=== PATIENT | female | born 1985 | race Caucasian/White ===

== ENCOUNTER 2017-06-12 01:04 | Emergency (ER) | payer OTHER ==
[2017-06-12] MEDS: DIPHENHYDRAMINE 50 MG INJ IM (01:41)
[2017-06-12] MEDS: ACETAMINOPHEN 325 MG TAB PO (01:41)
== END 2017-06-12 02:29 | disposition home or self-care (01) ==
LOC: FTE 01:04
DX: J20.9 Acute bronchitis, unspecified (principal); I10 Essential (primary) hypertension
CPT/HCPCS: 96372; 99284-25

== ENCOUNTER 2017-08-14 09:37 | Emergency (ER) | payer SELFPAY, OTHER | END 2017-08-14 10:05 | disposition left against medical advice (07) | LOC: FTE 10:05 | DX: Z53.21 Procedure and treatment not carried out due to patient leaving prior to being seen by health care provider (principal) ==

== ENCOUNTER 2017-08-15 07:26 | Inpatient (IN) | payer OTHER ==
[2017-08-15] MEDS: HYDROCODONE/APAP (5/325) TAB PO (15:12)
[2017-08-15 15:23] LABS: ADD MAN DIFF? NO
[2017-08-15 15:28] LABS: BASOPHILS % 0.4 % (0.0-2.0); EOSINOPHILS # 0.1 10^3/ul (0.0-0.5); EOSINOPHILS % 1.5 % (0.0-7.0); HEMATOCRIT 28.2 % (37.0-47.0); HEMOGLOBIN 9.1 g/dl (12.0-16.0); LYMPHOCYTES % 22.1 % (15.0-51.0); MEAN CORPUSCULAR HEMOGLOBIN 34.3 pg (29.0-33.0); MEAN CORPUSCULAR HGB CONC 32.3 g/dl (32.0-37.0); MEAN CORPUSCULAR VOLUME 106.4 fl (82.0-101.0); MONOCYTE # 0.5 10^3/ul (0.3-0.9); MONOCYTES % 11.1 % (0.0-11.0); NEUTROPHILS % 64.5 % (39.0-77.0); PLATELET COUNT 158 10^3/UL (140-415); RED BLOOD COUNT 2.65 10^6/ul (4.20-5.40); RED CELL DISTRIBUTION WIDTH 16.9 % (11.5-14.5)
[2017-08-15 15:28] LABS: WHITE BLOOD COUNT 4.7 10^3/ul (4.8-10.8)
[2017-08-15 15:46] LABS: INR 1.12; PROTIME 14.6 Sec (11.9-14.9); PT RATIO 1.1
[2017-08-15 15:47] LABS: PARTIAL THROMBOPLASTIN TIME 32.7 Sec (25.0-35.0)
[2017-08-15 15:57] LABS: ANION GAP 26 (8-16); BLOOD UREA NITROGEN 54 mg/dl (7-20); CALCIUM 10.2 mg/dl (8.4-10.2); CARBON DIOXIDE 29 mmol/L (21-31); CHLORIDE 93 mmol/L (97-110); GLUCOSE 107 mg/dl (70-220); POTASSIUM 5.3 mmol/L (3.5-5.1); SODIUM 143 mmol/L (135-144)
[2017-08-15] MEDS: NA POLYST SULFON 15 GM/60 ML BTL PO (17:30)
[2017-08-15] MEDS: METHOCARBAMOL 750 MG TAB PO (21:40)
[2017-08-15] MEDS: morphine 2 MG INJ IV (22:26)
[2017-08-15] MEDS ORDERED: ACETAMINOPHEN 500 MG TAB PO (23:00)
[2017-08-15] MEDS: DIPHENHYDRAMINE 50 MG CAP PO (23:40)
[2017-08-15] MEDS: ZOLPIDEM 5 MG TAB PO (23:40)
[2017-08-16] MEDS: HYDROCODONE/APAP (10/325) TAB PO ×2 (03:17→09:37)
[2017-08-16 05:30] LABS: ADD MAN DIFF? NO
[2017-08-16 05:36] LABS: BASOPHILS % 0.6 % (0.0-2.0); EOSINOPHILS # 0.1 10^3/ul (0.0-0.5); EOSINOPHILS % 1.5 % (0.0-7.0); HEMATOCRIT 25.2 % (37.0-47.0); HEMOGLOBIN 8.2 g/dl (12.0-16.0); LYMPHOCYTES # 1.2 10^3/ul (0.8-2.9); LYMPHOCYTES % 23.2 % (15.0-51.0); MEAN CORPUSCULAR HGB CONC 32.5 g/dl (32.0-37.0); MEAN CORPUSCULAR VOLUME 104.6 fl (82.0-101.0); MEAN PLATELET VOLUME 10.6 fl (7.4-10.4); MONOCYTE # 0.4 10^3/ul (0.3-0.9); MONOCYTES % 8.1 % (0.0-11.0); NEUTROPHIL # 3.4 10^3/ul (1.6-7.5); NEUTROPHILS % 66.2 % (39.0-77.0); PLATELET COUNT 147 10^3/UL (140-415); RED BLOOD COUNT 2.41 10^6/ul (4.20-5.40); RED CELL DISTRIBUTION WIDTH 16.6 % (11.5-14.5)
[2017-08-16 05:36] LABS: WHITE BLOOD COUNT 5.2 10^3/ul (4.8-10.8)
[2017-08-16 06:29] LABS: ALANINE AMINOTRANSFERASE 16 IU/L (13-69); ALBUMIN 3.9 g/dl (3.3-4.9); ALBUMIN/GLOBULIN RATIO 1.69; ALKALINE PHOSPHATASE 547 IU/L (42-121); ANION GAP 28 (8-16); ASPARTATE AMINO TRANSFERASE 14 IU/L (15-46); BLOOD UREA NITROGEN 61 mg/dl (7-20); CARBON DIOXIDE 25 mmol/L (21-31); CHLORIDE 91 mmol/L (97-110); CREATININE 7.59 mg/dl (0.44-1.00); GLUCOSE 68 mg/dl (70-220); POTASSIUM 3.8 mmol/L (3.5-5.1); SODIUM 140 mmol/L (135-144); TOTAL PROTEIN 6.2 g/dl (6.1-8.1)
[2017-08-16] MEDS: SEVELAMER 800 MG TAB PO ×3 (07:46→17:15)
[2017-08-16] MEDS ORDERED: DIPHENHYDRAMINE 25 MG CAP PO (08:30)
[2017-08-16] MEDS: DIPHENHYDRAMINE 50 MG INJ IV ×3 (10:40→23:52)
[2017-08-16] MEDS: morphine 2 MG INJ IV ×2 (13:10→20:11)
[2017-08-16] MEDS: CINACALCET 30 MG TAB PO (21:01)
[2017-08-16] MEDS: ZOLPIDEM 5 MG TAB PO (22:40)
[2017-08-17] MEDS: morphine 2 MG INJ IV ×3 (05:06→21:08)
[2017-08-17 05:09] LABS: ADD MAN DIFF? NO
[2017-08-17 05:19] LABS: BASOPHILS % 0.6 % (0.0-2.0); EOSINOPHILS # 0.1 10^3/ul (0.0-0.5); EOSINOPHILS % 1.9 % (0.0-7.0); HEMOGLOBIN 7.9 g/dl (12.0-16.0); LYMPHOCYTES # 1.2 10^3/ul (0.8-2.9); LYMPHOCYTES % 26.5 % (15.0-51.0); MEAN CORPUSCULAR HEMOGLOBIN 34.5 pg (29.0-33.0); MEAN CORPUSCULAR HGB CONC 32.9 g/dl (32.0-37.0); MEAN CORPUSCULAR VOLUME 104.8 fl (82.0-101.0); MEAN PLATELET VOLUME 10.9 fl (7.4-10.4); MONOCYTE # 0.4 10^3/ul (0.3-0.9); MONOCYTES % 8.4 % (0.0-11.0); NEUTROPHIL # 2.9 10^3/ul (1.6-7.5); NEUTROPHILS % 62.4 % (39.0-77.0); PLATELET COUNT 141 10^3/UL (140-415); RED BLOOD COUNT 2.29 10^6/ul (4.20-5.40); RED CELL DISTRIBUTION WIDTH 16.5 % (11.5-14.5)
[2017-08-17 05:19] LABS: WHITE BLOOD COUNT 4.7 10^3/ul (4.8-10.8)
[2017-08-17 05:46] LABS: PHOSPHORUS 11.2 mg/dl (2.5-4.9)
[2017-08-17 05:49] LABS: ANION GAP 27 (8-16); BLOOD UREA NITROGEN 80 mg/dl (7-20); CALCIUM 9.3 mg/dl (8.4-10.2); CARBON DIOXIDE 26 mmol/L (21-31); CHLORIDE 95 mmol/L (97-110); CREATININE 10.04 mg/dl (0.44-1.00); GLUCOSE 65 mg/dl (70-220); POTASSIUM 4.5 mmol/L (3.5-5.1); SODIUM 143 mmol/L (135-144)
[2017-08-17] MEDS: DIPHENHYDRAMINE 50 MG INJ IV ×3 (06:05→19:22)
[2017-08-17 06:13] LABS: THYROID STIMULATING HORMONE 0.679 MIU/L (0.465-4.680)
[2017-08-17] MEDS: CINACALCET 30 MG TAB PO ×2 (07:35→11:57)
[2017-08-17] MEDS: SEVELAMER 800 MG TAB PO ×3 (07:35→17:02)
[2017-08-17 07:40] LABS: IONIZED CALCIUM 1.1 mmol/L (1.1-1.4)
[2017-08-17 13:45] LABS: HEPATITIS B SURFACE ANTIGEN NEGATIVE (NEGATIVE)
[2017-08-17 14:13] LABS: HEPATITIS B SURFACE ANTIBODY POSITIVE (NEGATIVE)
[2017-08-18] MEDS: DIPHENHYDRAMINE 50 MG INJ IV ×3 (04:07→19:41)
[2017-08-18] MEDS: morphine 2 MG INJ IV ×5 (05:16→20:43)
[2017-08-18 05:46] LABS: ADD MAN DIFF? NO
[2017-08-18 05:52] LABS: WHITE BLOOD COUNT 4.1 10^3/ul (4.8-10.8)
[2017-08-18 05:52] LABS: BASOPHILS % 0.5 % (0.0-2.0); EOSINOPHILS # 0.1 10^3/ul (0.0-0.5); HEMOGLOBIN 9.1 g/dl (12.0-16.0); LYMPHOCYTES % 25.3 % (15.0-51.0); MEAN CORPUSCULAR HEMOGLOBIN 34.7 pg (29.0-33.0); MEAN CORPUSCULAR HGB CONC 32.5 g/dl (32.0-37.0); MEAN CORPUSCULAR VOLUME 106.9 fl (82.0-101.0); MEAN PLATELET VOLUME 10.3 fl (7.4-10.4); MONOCYTE # 0.4 10^3/ul (0.3-0.9); MONOCYTES % 9.3 % (0.0-11.0); NEUTROPHIL # 2.6 10^3/ul (1.6-7.5); NEUTROPHILS % 62.7 % (39.0-77.0); PLATELET COUNT 166 10^3/UL (140-415); RED BLOOD COUNT 2.62 10^6/ul (4.20-5.40); RED CELL DISTRIBUTION WIDTH 16.4 % (11.5-14.5)
[2017-08-18 06:18] LABS: ANION GAP 24 (8-16); BLOOD UREA NITROGEN 41 mg/dl (7-20); CALCIUM 9.9 mg/dl (8.4-10.2); CARBON DIOXIDE 27 mmol/L (21-31); CHLORIDE 101 mmol/L (97-110); CREATININE 6.57 mg/dl (0.44-1.00); GLUCOSE 62 mg/dl (70-220); POTASSIUM 4.8 mmol/L (3.5-5.1); SODIUM 147 mmol/L (135-144)
[2017-08-18] MEDS: SEVELAMER 800 MG TAB PO ×4 (07:35→17:35)
[2017-08-18] MEDS: CINACALCET 30 MG TAB PO ×2 (08:00→08:29)
[2017-08-18 11:22] LABS: INR 1.15; PROTIME 14.9 Sec (11.9-14.9); PT RATIO 1.2
[2017-08-18 11:23] LABS: PARTIAL THROMBOPLASTIN TIME 35.6 Sec (25.0-35.0)
[2017-08-18] MEDS ORDERED: LIDOCAINE 2% (SDV) 5 ML INJ (14:46)
[2017-08-18] MEDS ORDERED: PROPOFOL 20 ML (14:46)
[2017-08-18] MEDS ORDERED: CEFAZOLIN 1 GM INJ (15:07)
[2017-08-18] MEDS ORDERED: SUCCINYLCHOLINE CHLORIDE 100 MG/5 ML SYG IV (15:10)
[2017-08-18] MEDS ORDERED: FAMOTIDINE 20 MG INJ (15:11)
[2017-08-18] MEDS ORDERED: DEXAMETHASONE 4 MG/ML 1 ML INJ ×2 (15:11→15:17)
[2017-08-18] MEDS ORDERED: ONDANSETRON 4 MG INJ (15:11)
[2017-08-18] MEDS ORDERED: EPHEDrine SULFATE 50 MG/5 ML SYG (15:19)
[2017-08-18] MEDS ORDERED: DIPHENHYDRAMINE 50 MG INJ IV (17:00)
[2017-08-18] MEDS ORDERED: MEPERIDINE 25 MG INJ IV (17:00)
[2017-08-18] MEDS ORDERED: ONDANSETRON 4 MG INJ IV (17:00)
[2017-08-18] MEDS ORDERED: PROCHLORPERAZINE 10 MG INJ IV (17:00)
[2017-08-18] MEDS: HYDROmorphONE (0.2 MG/ML) 10ML SYG IV ×3 (17:22→17:45)
[2017-08-18] MEDS: FENTAnyl 50 MCG/ML VIAL IV (17:50)
[2017-08-18] MEDS: CALCITRIOL 0.25 MCG CAP PO (20:43)
[2017-08-18] MEDS: CALCIUM CARBONATE 1.25 GM TAB PO (20:43)
[2017-08-19] MEDS: morphine 2 MG INJ IV ×6 (00:23→20:23)
[2017-08-19] MEDS: DIPHENHYDRAMINE 50 MG INJ IV ×4 (01:44→21:05)
[2017-08-19 05:12] LABS: ADD MAN DIFF? NO
[2017-08-19 05:22] LABS: ABNORMAL IP MESSAGE 1; BASOPHILS % 0.1 % (0.0-2.0); HEMATOCRIT 27.9 % (37.0-47.0); LYMPHOCYTES # 0.5 10^3/ul (0.8-2.9); LYMPHOCYTES % 6.2 % (15.0-51.0); MEAN CORPUSCULAR HEMOGLOBIN 34.5 pg (29.0-33.0); MEAN CORPUSCULAR HGB CONC 32.3 g/dl (32.0-37.0); MEAN CORPUSCULAR VOLUME 106.9 fl (82.0-101.0); MEAN PLATELET VOLUME 10.4 fl (7.4-10.4); MONOCYTE # 0.3 10^3/ul (0.3-0.9); MONOCYTES % 4.5 % (0.0-11.0); NEUTROPHIL # 6.5 10^3/ul (1.6-7.5); NEUTROPHILS % 88.9 % (39.0-77.0); PLATELET COUNT 177 10^3/UL (140-415); RED BLOOD COUNT 2.61 10^6/ul (4.20-5.40); RED CELL DISTRIBUTION WIDTH 16.4 % (11.5-14.5)
[2017-08-19 05:22] LABS: WHITE BLOOD COUNT 7.3 10^3/ul (4.8-10.8)
[2017-08-19 05:52] LABS: ANION GAP 28 (8-16); BLOOD UREA NITROGEN 55 mg/dl (7-20); CARBON DIOXIDE 21 mmol/L (21-31); CHLORIDE 103 mmol/L (97-110); CREATININE 8.62 mg/dl (0.44-1.00); GLUCOSE 147 mg/dl (70-220)
[2017-08-19 06:13] LABS: POSITIVE DIFF @See below
[2017-08-19 07:03] LABS: SODIUM 145 mmol/L (135-144)
[2017-08-19] MEDS: SEVELAMER 800 MG TAB PO ×3 (07:35→17:33)
[2017-08-19] MEDS: CALCIUM CARBONATE 1.25 GM TAB PO ×4 (09:00→20:26)
[2017-08-19] MEDS: INFLUENZA VIRUS VACCINE 0.5 ML (DISPENSING) IM* (09:00)
[2017-08-19] MEDS: CALCITRIOL 0.25 MCG CAP PO ×3 (09:00→20:22)
[2017-08-19] MEDS ORDERED: CA CHLORIDE 10% 10 ML SYRINGE IV (11:12)
[2017-08-19] MEDS ORDERED: CALCITRIOL 1 MCG INJ IV (11:30)
[2017-08-19] MEDS: CALCIUM CHLORIDE 10% 1 GM in DEXTROSE 5% 100 ML IV (12:05)
[2017-08-19] MEDS ORDERED: CALCIUM CARBONATE 500 MG CHEW TAB PO (13:00)
[2017-08-19 16:28] LABS: ALBUMIN 3.8 g/dl (3.3-4.9); ANION GAP 28 (8-16); BLOOD UREA NITROGEN 56 mg/dl (7-20); CARBON DIOXIDE 20 mmol/L (21-31); CHLORIDE 102 mmol/L (97-110); CREATININE 8.67 mg/dl (0.44-1.00); GLUCOSE 146 mg/dl (70-220); SODIUM 143 mmol/L (135-144)
[2017-08-19 16:50] LABS: CALCIUM 5.8 mg/dl (8.4-10.2); POTASSIUM 7.1 mmol/L (3.5-5.1)
[2017-08-19 18:01] LABS: ALBUMIN 4.8 g/dl (3.3-4.9); ANION GAP 24 (8-16); BLOOD UREA NITROGEN 21 mg/dl (7-20); CALCIUM 6.7 mg/dl (8.4-10.2); CARBON DIOXIDE 27 mmol/L (21-31); CHLORIDE 94 mmol/L (97-110); CREATININE 4.16 mg/dl (0.44-1.00); GLUCOSE 100 mg/dl (70-220); PHOSPHORUS 4.3 mg/dl (2.5-4.9); POTASSIUM 3.4 mmol/L (3.5-5.1); SODIUM 142 mmol/L (135-144)
[2017-08-20] MEDS: morphine 2 MG INJ IV ×5 (04:00→20:05)
[2017-08-20] MEDS ORDERED: NORepinephrine 8MG/250 ML (PMX 250 ML (04:07)
[2017-08-20] MEDS: NORepinephrine 8MG/250 ML (PMX 250 ML IV (04:19)
[2017-08-20] MEDS: DIPHENHYDRAMINE 50 MG INJ IV ×3 (04:20→20:05)
[2017-08-20] MEDS: HYDROCODONE/APAP (10/325) TAB PO (06:37)
[2017-08-20 07:42] LABS: ALBUMIN 4.6 g/dl (3.3-4.9); ANION GAP 30 (8-16); BLOOD UREA NITROGEN 28 mg/dl (7-20); CARBON DIOXIDE 22 mmol/L (21-31); CHLORIDE 96 mmol/L (97-110); CREATININE 6.05 mg/dl (0.44-1.00); GLUCOSE 114 mg/dl (70-220); POTASSIUM 4.7 mmol/L (3.5-5.1); SODIUM 143 mmol/L (135-144)
[2017-08-20] MEDS: SEVELAMER 800 MG TAB PO ×4 (08:29→12:45)
[2017-08-20] MEDS: CALCIUM CARBONATE 1.25 GM TAB PO ×4 (08:29→20:04)
[2017-08-20] MEDS: CALCITRIOL 0.25 MCG CAP PO ×3 (08:31→20:04)
[2017-08-20] MEDS: INFLUENZA VIRUS VACCINE 0.5 ML (DISPENSING) IM* (09:00)
[2017-08-20] MEDS: CA CHLORIDE 10% 10 ML SYRINGE IV ×2 (09:19→12:33)
[2017-08-20] MEDS: ALTEPLASE (CATHFLO) 2 MG INJ CATHETER (12:19)
[2017-08-20] MEDS: MAGNESIUM SULFATE 2 GM/50 ML 50 ML IVPB (12:28)
[2017-08-20 12:44] LABS: ANION GAP 23 (8-16); BLOOD UREA NITROGEN 31 mg/dl (7-20); CARBON DIOXIDE 27 mmol/L (21-31); CHLORIDE 95 mmol/L (97-110); CREATININE 6.59 mg/dl (0.44-1.00); GLUCOSE 84 mg/dl (70-220); MAGNESIUM 2.2 mg/dl (1.7-2.5); PHOSPHORUS 4.9 mg/dl (2.5-4.9); SODIUM 140 mmol/L (135-144)
[2017-08-20 12:46] LABS: POTASSIUM 5.3 mmol/L (3.5-5.1)
[2017-08-20] MEDS: SOD CHLORIDE 0.9% 500 ML IV ×2 (18:00)
[2017-08-20] MEDS ORDERED: SOD CHLORIDE 0.9% 500 ML IV (18:00)
[2017-08-20 18:51] LABS: ANION GAP 24 (8-16); BLOOD UREA NITROGEN 34 mg/dl (7-20); CARBON DIOXIDE 24 mmol/L (21-31); CHLORIDE 97 mmol/L (97-110); CREATININE 7.06 mg/dl (0.44-1.00); GLUCOSE 93 mg/dl (70-220); MAGNESIUM 2.7 mg/dl (1.7-2.5); PHOSPHORUS 4.6 mg/dl (2.5-4.9); POTASSIUM 5.6 mmol/L (3.5-5.1); SODIUM 139 mmol/L (135-144)
[2017-08-20 18:54] LABS: CALCIUM 5.2 mg/dl (8.4-10.2)
[2017-08-21] MEDS: CALCIUM CARBONATE 1.25 GM TAB PO ×6 (00:42→20:55)
[2017-08-21] MEDS: morphine 2 MG INJ IV ×2 (00:42→05:49)
[2017-08-21 01:09] LABS: ALBUMIN 3.9 g/dl (3.3-4.9); ANION GAP 23 (8-16); BLOOD UREA NITROGEN 36 mg/dl (7-20); CARBON DIOXIDE 26 mmol/L (21-31); CHLORIDE 96 mmol/L (97-110); CREATININE 8.04 mg/dl (0.44-1.00); GLUCOSE 85 mg/dl (70-220); MAGNESIUM 2.6 mg/dl (1.7-2.5); PHOSPHORUS 4.8 mg/dl (2.5-4.9); POTASSIUM 5.9 mmol/L (3.5-5.1); SODIUM 139 mmol/L (135-144)
[2017-08-21 01:14] LABS: CALCIUM 4.7 mg/dl (8.4-10.2)
[2017-08-21] MEDS: DIPHENHYDRAMINE 50 MG INJ IV ×4 (03:16→20:55)
[2017-08-21 07:16] LABS: ALBUMIN 3.8 g/dl (3.3-4.9); ANION GAP 24 (8-16); BLOOD UREA NITROGEN 39 mg/dl (7-20); CARBON DIOXIDE 24 mmol/L (21-31); CHLORIDE 98 mmol/L (97-110); CREATININE 8.39 mg/dl (0.44-1.00); GLUCOSE 67 mg/dl (70-220); MAGNESIUM 2.6 mg/dl (1.7-2.5); PHOSPHORUS 4.7 mg/dl (2.5-4.9); POTASSIUM 5.6 mmol/L (3.5-5.1); SODIUM 140 mmol/L (135-144)
[2017-08-21 07:18] LABS: CALCIUM 4.6 mg/dl (8.4-10.2)
[2017-08-21] MEDS: CA CHLORIDE 10% 10 ML SYRINGE IV ×3 (07:44→21:11)
[2017-08-21] MEDS: SEVELAMER 800 MG TAB PO ×3 (07:46→16:17)
[2017-08-21] MEDS: CALCITRIOL 0.25 MCG CAP PO ×4 (08:02→21:57)
[2017-08-21 13:18] LABS: ALBUMIN 3.7 g/dl (3.3-4.9); ANION GAP 22 (8-16); BLOOD UREA NITROGEN 41 mg/dl (7-20); CALCIUM 6.2 mg/dl (8.4-10.2); CARBON DIOXIDE 21 mmol/L (21-31); CHLORIDE 100 mmol/L (97-110); CREATININE 9.21 mg/dl (0.44-1.00); GLUCOSE 75 mg/dl (70-220); MAGNESIUM 2.7 mg/dl (1.7-2.5); PHOSPHORUS 4.4 mg/dl (2.5-4.9); POTASSIUM 5.3 mmol/L (3.5-5.1); SODIUM 138 mmol/L (135-144)
[2017-08-21] MEDS ORDERED: SOD CHLORIDE 0.9% 500 ML IV (14:00)
[2017-08-21] MEDS: ERGOCALCIFEROL (8000 UNITS/ML PO SYG) PO ×2 (14:10→14:25)
[2017-08-21] MEDS: CALCITRIOL 1 MCG INJ IV (14:23)
[2017-08-21] MEDS: LACTATED RINGER'S 500 ML IV (14:23)
[2017-08-21] MEDS: ONDANSETRON 4 MG INJ IV (14:39)
[2017-08-21] MEDS ORDERED: SOD CHLORIDE 0.9% 1,000 ML IV (15:00)
[2017-08-21] MEDS: LACTATED RINGER'S 1,000 ML IV (16:03)
[2017-08-21] MEDS: ERGOCALCIFEROL 50,000 UNIT CAP PO (16:17)
[2017-08-21] MEDS: MIDODRINE 5 MG TAB PO ×2 (16:18→22:35)
[2017-08-21 20:06] LABS: ALBUMIN 3.8 g/dl (3.3-4.9); ANION GAP 23 (8-16); BLOOD UREA NITROGEN 42 mg/dl (7-20); CARBON DIOXIDE 22 mmol/L (21-31); CHLORIDE 99 mmol/L (97-110); CREATININE 9.57 mg/dl (0.44-1.00); GLUCOSE 74 mg/dl (70-220); MAGNESIUM 2.6 mg/dl (1.7-2.5); PHOSPHORUS 4.5 mg/dl (2.5-4.9); SODIUM 138 mmol/L (135-144)
[2017-08-21 20:10] LABS: CALCIUM 4.8 mg/dl (8.4-10.2)
[2017-08-21 20:15] LABS: POTASSIUM 6.2 mmol/L (3.5-5.1)
[2017-08-21] MEDS: ALBUMIN HUMAN 5% 250 ML IV (20:38)
[2017-08-21] MEDS: NA BICARBONATE 8.4% 50 ML SYG IV (21:11)
[2017-08-21] MEDS: CALCIUM GLUCONATE 10% 2 GM in DEXTROSE 5% 100 ML IVPB (22:29)
[2017-08-21] MEDS: NA POLYST SULFON 15 GM/60 ML BTL PO (22:52)
[2017-08-21 23:01] LABS: POTASSIUM 5.4 mmol/L (3.5-5.1)
[2017-08-22] MEDS: CALCIUM CARBONATE 1.25 GM TAB PO ×6 (02:14→22:13)
[2017-08-22] MEDS: ALBUMIN HUMAN 5% 250 ML IV (02:38)
[2017-08-22] MEDS: LACTATED RINGER'S 1,000 ML IV ×2 (02:39→17:04)
[2017-08-22] MEDS: DIPHENHYDRAMINE 50 MG INJ IV ×4 (02:56→20:13)
[2017-08-22 05:41] LABS: ADD MAN DIFF? NO
[2017-08-22 05:50] LABS: BASOPHILS % 0.3 % (0.0-2.0); EOSINOPHILS # 0.1 10^3/ul (0.0-0.5); EOSINOPHILS % 2.7 % (0.0-7.0); HEMATOCRIT 21.3 % (37.0-47.0); LYMPHOCYTES # 0.9 10^3/ul (0.8-2.9); LYMPHOCYTES % 23.3 % (15.0-51.0); MEAN CORPUSCULAR HEMOGLOBIN 34.8 pg (29.0-33.0); MEAN CORPUSCULAR HGB CONC 32.9 g/dl (32.0-37.0); MEAN PLATELET VOLUME 10.3 fl (7.4-10.4); MONOCYTE # 0.3 10^3/ul (0.3-0.9); MONOCYTES % 9.1 % (0.0-11.0); NEUTROPHIL # 2.4 10^3/ul (1.6-7.5); NEUTROPHILS % 64.3 % (39.0-77.0); PLATELET COUNT 157 10^3/UL (140-415); RED BLOOD COUNT 2.01 10^6/ul (4.20-5.40); RED CELL DISTRIBUTION WIDTH 16.7 % (11.5-14.5)
[2017-08-22 05:50] LABS: WHITE BLOOD COUNT 3.7 10^3/ul (4.8-10.8)
[2017-08-22 06:06] LABS: ALANINE AMINOTRANSFERASE 18 IU/L (13-69); ALBUMIN/GLOBULIN RATIO 1.66; ALKALINE PHOSPHATASE 855 IU/L (42-121); ANION GAP 25 (8-16); ASPARTATE AMINO TRANSFERASE 22 IU/L (15-46); BLOOD UREA NITROGEN 45 mg/dl (7-20); CARBON DIOXIDE 25 mmol/L (21-31); CHLORIDE 98 mmol/L (97-110); CREATININE 9.99 mg/dl (0.44-1.00); GLUCOSE 86 mg/dl (70-220); POTASSIUM 4.9 mmol/L (3.5-5.1); SODIUM 143 mmol/L (135-144); TOTAL PROTEIN 6.4 g/dl (6.1-8.1)
[2017-08-22 06:10] LABS: CALCIUM 4.5 mg/dl (8.4-10.2)
[2017-08-22] MEDS: CA CHLORIDE 10% 10 ML SYRINGE IV ×3 (06:27→14:49)
[2017-08-22] MEDS ORDERED: ERGOCALCIFEROL 50,000 UNIT CAP PO (07:05)
[2017-08-22] MEDS: ERGOCALCIFEROL 50,000 UNIT CAP PO (07:52)
[2017-08-22] MEDS: HYDROCODONE/APAP (10/325) TAB PO (07:56)
[2017-08-22] MEDS: SEVELAMER 800 MG TAB PO ×3 (07:56→18:02)
[2017-08-22] MEDS: CALCITRIOL 0.25 MCG CAP PO ×4 (09:02→22:13)
[2017-08-22] MEDS: MIDODRINE 5 MG TAB PO ×2 (09:38→17:04)
[2017-08-22] MEDS: CALCITRIOL 1 MCG INJ IV (10:19)
[2017-08-22 11:32] LABS: IONIZED CALCIUM < 0.6 mmol/L (1.1-1.4)
[2017-08-22 12:52] LABS: IRON 58 ug/dl (35-150)
[2017-08-22 13:02] LABS: % IRON SATURATION 33 % SAT (22-52); TOTAL IRON BINDING CAPACITY 175 ug/dl (241-421)
[2017-08-22 17:48] LABS: AHG CROSSMATCH 1 1
[2017-08-22] MEDS: SOD CHLORIDE 0.9% 250 ML IV* (17:56)
[2017-08-22] MEDS: EPOETIN 3000 UNITS/1 ML INJ (ESRD) SC (17:58)
[2017-08-22 19:38] LABS: PTH CALCIUM 5.3 mg/dL (8.6-10.2)
[2017-08-22] MEDS: DEXTROSE 5% IV (20:13)
[2017-08-22] MEDS: CALCIUM GLUCONATE IV (20:13)
[2017-08-22] MEDS ORDERED: EPOETIN 10000 UNITS/1 ML INJ (ESRD) SC (22:00)
[2017-08-22] MEDS ORDERED: CA CHLORIDE 10% 10 ML SYRINGE IV (22:00)
[2017-08-22] MEDS: EPOETIN 10000 UNITS/1 ML INJ (ESRD) SC (23:21)
[2017-08-23] MEDS: CALCIUM CARBONATE 1.25 GM TAB PO ×6 (01:02→21:36)
[2017-08-23] MEDS: DIPHENHYDRAMINE 50 MG INJ IV ×3 (03:40→16:52)
[2017-08-23] MEDS: LACTATED RINGER'S 1,000 ML IV (06:29)
[2017-08-23 06:33] LABS: MAGNESIUM 2.3 mg/dl (1.7-2.5)
[2017-08-23 06:33] LABS: PHOSPHORUS 3.4 mg/dl (2.5-4.9)
[2017-08-23 06:40] LABS: ALANINE AMINOTRANSFERASE 19 IU/L (13-69); ALBUMIN 3.8 g/dl (3.3-4.9); ALBUMIN/GLOBULIN RATIO 1.35; ALKALINE PHOSPHATASE 1072 IU/L (42-121); ANION GAP 20 (8-16); ASPARTATE AMINO TRANSFERASE 24 IU/L (15-46); BILIRUBIN,INDIRECT 0.2 mg/dl (0-1.1); BILIRUBIN,TOTAL 0.2 mg/dl (0.2-1.3); BLOOD UREA NITROGEN 16 mg/dl (7-20); CALCIUM 6.1 mg/dl (8.4-10.2); CARBON DIOXIDE 27 mmol/L (21-31); CHLORIDE 100 mmol/L (97-110); CREATININE 5.18 mg/dl (0.44-1.00); GLUCOSE 70 mg/dl (70-220); POTASSIUM 4.6 mmol/L (3.5-5.1); SODIUM 142 mmol/L (135-144); TOTAL PROTEIN 6.6 g/dl (6.1-8.1)
[2017-08-23] MEDS: ERGOCALCIFEROL 50,000 UNIT CAP PO (08:01)
[2017-08-23] MEDS: SEVELAMER 800 MG TAB PO ×2 (08:01→12:01)
[2017-08-23] MEDS: morphine 2 MG INJ IV ×4 (08:02→21:41)
[2017-08-23 08:21] LABS: PTH INTACT 10 pg/mL (14-64)
[2017-08-23] MEDS: MIDODRINE 5 MG TAB PO (09:53)
[2017-08-23] MEDS: CALCITRIOL 0.25 MCG CAP PO ×4 (09:53→21:36)
[2017-08-23] MEDS: ONDANSETRON 4 MG INJ IV (13:15)
[2017-08-23 17:00] LABS: ALANINE AMINOTRANSFERASE 17 IU/L (13-69); ALBUMIN 3.6 g/dl (3.3-4.9); ALBUMIN/GLOBULIN RATIO 1.38; ALKALINE PHOSPHATASE 1116 IU/L (42-121); ANION GAP 21 (8-16); ASPARTATE AMINO TRANSFERASE 20 IU/L (15-46); BILIRUBIN,INDIRECT 0.2 mg/dl (0-1.1); BILIRUBIN,TOTAL 0.2 mg/dl (0.2-1.3); BLOOD UREA NITROGEN 19 mg/dl (7-20); CARBON DIOXIDE 28 mmol/L (21-31); CHLORIDE 98 mmol/L (97-110); CREATININE 6.14 mg/dl (0.44-1.00); GLUCOSE 88 mg/dl (70-220); SODIUM 142 mmol/L (135-144); TOTAL PROTEIN 6.2 g/dl (6.1-8.1)
[2017-08-23 17:04] LABS: CALCIUM 5.9 mg/dl (8.4-10.2)
[2017-08-23 17:05] LABS: POTASSIUM 5.1 mmol/L (3.5-5.1)
[2017-08-23] MEDS: CALCITRIOL 1 MCG INJ IV (20:00)
[2017-08-23] MEDS: DEXTROSE 5% IV (21:40)
[2017-08-23] MEDS: CALCIUM GLUCONATE IV (21:40)
[2017-08-24] MEDS: CALCIUM CARBONATE 1.25 GM TAB PO ×6 (00:48→21:16)
[2017-08-24] MEDS: DIPHENHYDRAMINE 50 MG INJ IV ×4 (02:16→18:13)
[2017-08-24] MEDS: morphine 2 MG INJ IV ×4 (02:17→18:14)
[2017-08-24 06:01] LABS: ADD MAN DIFF? NO
[2017-08-24 06:12] LABS: HEMOGLOBIN 8.5 g/dl (12.0-16.0)
[2017-08-24 06:12] LABS: HEMATOCRIT 25.8 % (37.0-47.0)
[2017-08-24 06:14] LABS: BASOPHILS % 0.6 % (0.0-2.0); EOSINOPHILS # 0.2 10^3/ul (0.0-0.5); EOSINOPHILS % 2.9 % (0.0-7.0); HEMATOCRIT 26.8 % (37.0-47.0); HEMOGLOBIN 8.6 g/dl (12.0-16.0); LYMPHOCYTES # 1.1 10^3/ul (0.8-2.9); LYMPHOCYTES % 21.1 % (15.0-51.0); MEAN CORPUSCULAR HEMOGLOBIN 33.9 pg (29.0-33.0); MEAN CORPUSCULAR HGB CONC 32.1 g/dl (32.0-37.0); MEAN CORPUSCULAR VOLUME 105.5 fl (82.0-101.0); MEAN PLATELET VOLUME 10.3 fl (7.4-10.4); MONOCYTE # 0.6 10^3/ul (0.3-0.9); MONOCYTES % 10.7 % (0.0-11.0); NEUTROPHIL # 3.3 10^3/ul (1.6-7.5); NEUTROPHILS % 64.3 % (39.0-77.0); PLATELET COUNT 182 10^3/UL (140-415); RED BLOOD COUNT 2.54 10^6/ul (4.20-5.40); RED CELL DISTRIBUTION WIDTH 17.4 % (11.5-14.5)
[2017-08-24 06:14] LABS: WHITE BLOOD COUNT 5.1 10^3/ul (4.8-10.8)
[2017-08-24 06:46] LABS: ANION GAP 24 (8-16); BLOOD UREA NITROGEN 26 mg/dl (7-20); CALCIUM 6.1 mg/dl (8.4-10.2); CARBON DIOXIDE 24 mmol/L (21-31); CHLORIDE 97 mmol/L (97-110); GLUCOSE 75 mg/dl (70-220); POTASSIUM 5.9 mmol/L (3.5-5.1); SODIUM 139 mmol/L (135-144)
[2017-08-24 07:01] LABS: IONIZED CALCIUM 0.8 mmol/L (1.1-1.4)
[2017-08-24] MEDS: CALCITRIOL 0.25 MCG CAP PO ×3 (08:01→18:22)
[2017-08-24] MEDS: CALCIUM GLUCONATE IV (13:48)
[2017-08-24] MEDS: DEXTROSE 5% IV (13:48)
[2017-08-24] MEDS: ERGOCALCIFEROL 50,000 UNIT CAP PO (15:47)
[2017-08-24] MEDS ORDERED: EPOETIN 10000 UNITS/1 ML INJ (ESRD) SC (17:00)
[2017-08-24] MEDS: EPOETIN 3000 UNITS/1 ML INJ (ESRD) SC (18:22)
[2017-08-24 19:21] LABS: CALCIUM 8.2 mg/dl (8.4-10.2)
[2017-08-25] MEDS: CALCIUM CARBONATE 1.25 GM TAB PO ×6 (01:57→21:02)
[2017-08-25] MEDS: DIPHENHYDRAMINE 50 MG INJ IV ×4 (01:57→22:17)
[2017-08-25 05:38] LABS: ADD MAN DIFF? NO
[2017-08-25 05:44] LABS: BASOPHILS % 0.5 % (0.0-2.0); EOSINOPHILS # 0.1 10^3/ul (0.0-0.5); HEMATOCRIT 25.7 % (37.0-47.0); HEMOGLOBIN 8.5 g/dl (12.0-16.0); LYMPHOCYTES # 0.8 10^3/ul (0.8-2.9); LYMPHOCYTES % 22.3 % (15.0-51.0); MEAN CORPUSCULAR HEMOGLOBIN 33.6 pg (29.0-33.0); MEAN CORPUSCULAR HGB CONC 33.1 g/dl (32.0-37.0); MEAN CORPUSCULAR VOLUME 101.6 fl (82.0-101.0); MEAN PLATELET VOLUME 10.2 fl (7.4-10.4); MONOCYTE # 0.4 10^3/ul (0.3-0.9); MONOCYTES % 10.9 % (0.0-11.0); NEUTROPHIL # 2.3 10^3/ul (1.6-7.5); NEUTROPHILS % 62.8 % (39.0-77.0); PLATELET COUNT 183 10^3/UL (140-415); RED BLOOD COUNT 2.53 10^6/ul (4.20-5.40); RED CELL DISTRIBUTION WIDTH 16.8 % (11.5-14.5)
[2017-08-25 05:44] LABS: WHITE BLOOD COUNT 3.7 10^3/ul (4.8-10.8)
[2017-08-25 06:19] LABS: ALANINE AMINOTRANSFERASE 16 IU/L (13-69); ALBUMIN 3.9 g/dl (3.3-4.9); ALKALINE PHOSPHATASE 1281 IU/L (42-121); ANION GAP 20 (8-16); ASPARTATE AMINO TRANSFERASE 22 IU/L (15-46); BILIRUBIN,INDIRECT 0.1 mg/dl (0-1.1); BILIRUBIN,TOTAL 0.1 mg/dl (0.2-1.3); BLOOD UREA NITROGEN 14 mg/dl (7-20); CALCIUM 6.2 mg/dl (8.4-10.2); CARBON DIOXIDE 28 mmol/L (21-31); CHLORIDE 96 mmol/L (97-110); CREATININE 4.54 mg/dl (0.44-1.00); GLUCOSE 66 mg/dl (70-220); POTASSIUM 4.5 mmol/L (3.5-5.1); SODIUM 139 mmol/L (135-144); TOTAL PROTEIN 6.5 g/dl (6.1-8.1)
[2017-08-25] MEDS: CALCITRIOL 0.25 MCG CAP PO ×3 (08:25→19:25)
[2017-08-25] MEDS: SEVELAMER 400 MG TAB PO ×3 (08:26→16:40)
[2017-08-25 14:07] LABS: CALCIUM 5.5 mg/dl (8.4-10.2)
[2017-08-25] MEDS: CALCIUM GLUCONATE IV (15:50)
[2017-08-25] MEDS: DEXTROSE 5% IV (15:50)
[2017-08-25 19:06] LABS: CALCIUM 9.5 mg/dl (8.4-10.2)
[2017-08-25] MEDS: morphine 2 MG INJ IV (21:39)
[2017-08-26] MEDS: CALCIUM CARBONATE 1.25 GM TAB PO ×6 (00:44→20:27)
[2017-08-26] MEDS: DIPHENHYDRAMINE 50 MG INJ IV ×3 (04:40→18:38)
[2017-08-26 05:15] LABS: ADD MAN DIFF? NO
[2017-08-26 05:20] LABS: BASOPHILS % 0.7 % (0.0-2.0); EOSINOPHILS # 0.1 10^3/ul (0.0-0.5); EOSINOPHILS % 2.2 % (0.0-7.0); HEMATOCRIT 29.2 % (37.0-47.0); HEMOGLOBIN 9.3 g/dl (12.0-16.0); LYMPHOCYTES # 1.1 10^3/ul (0.8-2.9); LYMPHOCYTES % 24.6 % (15.0-51.0); MEAN CORPUSCULAR HEMOGLOBIN 33.3 pg (29.0-33.0); MEAN CORPUSCULAR HGB CONC 31.8 g/dl (32.0-37.0); MEAN CORPUSCULAR VOLUME 104.7 fl (82.0-101.0); MEAN PLATELET VOLUME 10.3 fl (7.4-10.4); MONOCYTE # 0.6 10^3/ul (0.3-0.9); MONOCYTES % 12.8 % (0.0-11.0); NEUTROPHIL # 2.7 10^3/ul (1.6-7.5); NEUTROPHILS % 59.3 % (39.0-77.0); NUCLEATED RED BLOOD CELLS% 0.7 /100WBC (0.0-0.0); PLATELET COUNT 217 10^3/UL (140-415); RED BLOOD COUNT 2.79 10^6/ul (4.20-5.40); RED CELL DISTRIBUTION WIDTH 16.1 % (11.5-14.5)
[2017-08-26 05:20] LABS: WHITE BLOOD COUNT 4.5 10^3/ul (4.8-10.8)
[2017-08-26 05:34] LABS: ALANINE AMINOTRANSFERASE 21 IU/L (13-69); ALBUMIN 4.1 g/dl (3.3-4.9); ALBUMIN/GLOBULIN RATIO 1.41; ANION GAP 19 (8-16); ASPARTATE AMINO TRANSFERASE 19 IU/L (15-46); BILIRUBIN,INDIRECT 0.1 mg/dl (0-1.1); BILIRUBIN,TOTAL 0.1 mg/dl (0.2-1.3); BLOOD UREA NITROGEN 16 mg/dl (7-20); CALCIUM 7.1 mg/dl (8.4-10.2); CARBON DIOXIDE 28 mmol/L (21-31); CHLORIDE 100 mmol/L (97-110); CREATININE 4.04 mg/dl (0.44-1.00); GLUCOSE 85 mg/dl (70-220); POTASSIUM 4.3 mmol/L (3.5-5.1); SODIUM 143 mmol/L (135-144)
[2017-08-26 05:42] LABS: ALKALINE PHOSPHATASE 1407 IU/L (42-121)
[2017-08-26 05:47] LABS: PHOSPHORUS 3.2 mg/dl (2.5-4.9)
[2017-08-26] MEDS: SEVELAMER 400 MG TAB PO ×3 (07:55→18:37)
[2017-08-26] MEDS: morphine 2 MG INJ IV ×4 (07:55→18:37)
[2017-08-26] MEDS: CYANOCOBALAMIN 1000 MCG INJ IM (07:56)
[2017-08-26] MEDS: FOLIC ACID 1 MG TAB PO (10:01)
[2017-08-26] MEDS: CALCITRIOL 0.25 MCG CAP PO ×3 (10:01→20:27)
[2017-08-26 14:50] LABS: CALCIUM 7.1 mg/dl (8.4-10.2)
[2017-08-26] MEDS: DEXTROSE 5% IV (16:04)
[2017-08-26] MEDS: CALCIUM GLUCONATE IV (16:04)
[2017-08-26] MEDS: EPOETIN 3000 UNITS/1 ML INJ (ESRD) SC (17:00)
[2017-08-26] MEDS: LIDOCAINE 1% (MPF) 5 ML VIAL SC (18:00)
[2017-08-26] MEDS: SOD CHLORIDE 0.9% 100 ML (18:15)
[2017-08-27] MEDS: CALCIUM CARBONATE 1.25 GM TAB PO ×6 (00:58→20:39)
[2017-08-27] MEDS: DIPHENHYDRAMINE 50 MG INJ IV ×4 (01:03→18:57)
[2017-08-27] MEDS: DEXTROSE 5% IV (03:27)
[2017-08-27] MEDS: CALCIUM GLUCONATE IV (03:27)
[2017-08-27 05:08] LABS: ADD MAN DIFF? NO
[2017-08-27 05:11] LABS: WHITE BLOOD COUNT 3.9 10^3/ul (4.8-10.8)
[2017-08-27 05:11] LABS: BASOPHILS % 0.5 % (0.0-2.0); EOSINOPHILS # 0.2 10^3/ul (0.0-0.5); EOSINOPHILS % 3.8 % (0.0-7.0); HEMOGLOBIN 8.3 g/dl (12.0-16.0); LYMPHOCYTES # 1.2 10^3/ul (0.8-2.9); LYMPHOCYTES % 30.9 % (15.0-51.0); MEAN CORPUSCULAR HEMOGLOBIN 33.6 pg (29.0-33.0); MEAN CORPUSCULAR HGB CONC 31.9 g/dl (32.0-37.0); MEAN CORPUSCULAR VOLUME 105.3 fl (82.0-101.0); MEAN PLATELET VOLUME 9.8 fl (7.4-10.4); MONOCYTE # 0.4 10^3/ul (0.3-0.9); MONOCYTES % 10.5 % (0.0-11.0); NEUTROPHIL # 2.1 10^3/ul (1.6-7.5); NEUTROPHILS % 53.5 % (39.0-77.0); PLATELET COUNT 182 10^3/UL (140-415); RED BLOOD COUNT 2.47 10^6/ul (4.20-5.40); RED CELL DISTRIBUTION WIDTH 16.4 % (11.5-14.5)
[2017-08-27 05:32] LABS: ALANINE AMINOTRANSFERASE 16 IU/L (13-69); ALBUMIN 3.7 g/dl (3.3-4.9); ALBUMIN/GLOBULIN RATIO 1.42; ALKALINE PHOSPHATASE 1479 IU/L (42-121); ANION GAP 19 (8-16); ASPARTATE AMINO TRANSFERASE 16 IU/L (15-46); BILIRUBIN,INDIRECT 0.1 mg/dl (0-1.1); BILIRUBIN,TOTAL 0.1 mg/dl (0.2-1.3); BLOOD UREA NITROGEN 25 mg/dl (7-20); CALCIUM 7.2 mg/dl (8.4-10.2); CARBON DIOXIDE 29 mmol/L (21-31); CHLORIDE 98 mmol/L (97-110); CREATININE 6.27 mg/dl (0.44-1.00); GLUCOSE 79 mg/dl (70-220); POTASSIUM 4.7 mmol/L (3.5-5.1); SODIUM 141 mmol/L (135-144); TOTAL PROTEIN 6.3 g/dl (6.1-8.1)
[2017-08-27] MEDS ORDERED: ERGOCALCIFEROL 50,000 UNIT CAP PO ×2 (07:00→07:30)
[2017-08-27] MEDS: SEVELAMER 400 MG TAB PO ×3 (07:55→16:45)
[2017-08-27] MEDS: morphine 2 MG INJ IV ×3 (07:56→20:42)
[2017-08-27] MEDS: ERGOCALCIFEROL 50,000 UNIT CAP PO (07:56)
[2017-08-27 08:02] LABS: IONIZED CALCIUM 0.9 mmol/L (1.1-1.4)
[2017-08-27] MEDS: CALCITRIOL 0.25 MCG CAP PO ×3 (09:24→20:40)
[2017-08-27] MEDS: FOLIC ACID 1 MG TAB PO (09:24)
[2017-08-27 17:50] LABS: CALCIUM 7.3 mg/dl (8.4-10.2)
[2017-08-28] MEDS: DIPHENHYDRAMINE 50 MG INJ IV ×4 (01:01→20:02)
[2017-08-28 05:37] LABS: ADD MAN DIFF? NO
[2017-08-28 05:40] LABS: BASOPHILS % 0.7 % (0.0-2.0); EOSINOPHILS # 0.2 10^3/ul (0.0-0.5); EOSINOPHILS % 3.7 % (0.0-7.0); HEMATOCRIT 24.7 % (37.0-47.0); LYMPHOCYTES # 1.2 10^3/ul (0.8-2.9); LYMPHOCYTES % 29.2 % (15.0-51.0); MEAN CORPUSCULAR HEMOGLOBIN 33.9 pg (29.0-33.0); MEAN CORPUSCULAR HGB CONC 32.4 g/dl (32.0-37.0); MEAN CORPUSCULAR VOLUME 104.7 fl (82.0-101.0); MEAN PLATELET VOLUME 9.7 fl (7.4-10.4); MONOCYTE # 0.4 10^3/ul (0.3-0.9); NEUTROPHIL # 2.2 10^3/ul (1.6-7.5); NEUTROPHILS % 55.4 % (39.0-77.0); PLATELET COUNT 159 10^3/UL (140-415); RED BLOOD COUNT 2.36 10^6/ul (4.20-5.40); RED CELL DISTRIBUTION WIDTH 15.9 % (11.5-14.5)
[2017-08-28] MEDS: DEXTROSE 5% IV ×2 (06:07→11:00)
[2017-08-28] MEDS: CALCIUM GLUCONATE IV ×2 (06:07→11:00)
[2017-08-28 06:21] LABS: ALANINE AMINOTRANSFERASE 15 IU/L (13-69); ALBUMIN 3.7 g/dl (3.3-4.9); ANION GAP 21 (8-16); ASPARTATE AMINO TRANSFERASE 14 IU/L (15-46); BLOOD UREA NITROGEN 32 mg/dl (7-20); CALCIUM 7.8 mg/dl (8.4-10.2); CARBON DIOXIDE 25 mmol/L (21-31); CHLORIDE 97 mmol/L (97-110); CREATININE 8.33 mg/dl (0.44-1.00); GLUCOSE 74 mg/dl (70-220); POTASSIUM 5.3 mmol/L (3.5-5.1); SODIUM 138 mmol/L (135-144)
[2017-08-28 06:36] LABS: MAGNESIUM 3.3 mg/dl (1.7-2.5)
[2017-08-28 06:51] LABS: ALKALINE PHOSPHATASE 1586 IU/L (42-121)
[2017-08-28] MEDS: SEVELAMER 400 MG TAB PO ×3 (08:04→17:35)
[2017-08-28] MEDS: CALCITRIOL 0.25 MCG CAP PO ×3 (09:14→20:01)
[2017-08-28] MEDS: FOLIC ACID 1 MG TAB PO (09:14)
[2017-08-28] MEDS: CALCIUM CARBONATE 1.25 GM TAB PO ×3 (13:47→20:01)
[2017-08-28] MEDS: morphine 2 MG INJ IV ×2 (14:22→21:49)
[2017-08-28 20:22] LABS: CALCIUM 12.1 mg/dl (8.4-10.2)
[2017-08-29] MEDS: DIPHENHYDRAMINE 50 MG INJ IV ×4 (04:50→23:26)
[2017-08-29 05:16] LABS: ADD MAN DIFF? NO
[2017-08-29 05:18] LABS: BASOPHILS % 0.8 % (0.0-2.0); EOSINOPHILS # 0.1 10^3/ul (0.0-0.5); EOSINOPHILS % 3.4 % (0.0-7.0); HEMATOCRIT 22.4 % (37.0-47.0); HEMOGLOBIN 7.2 g/dl (12.0-16.0); LYMPHOCYTES # 0.7 10^3/ul (0.8-2.9); LYMPHOCYTES % 18.8 % (15.0-51.0); MEAN CORPUSCULAR HEMOGLOBIN 33.8 pg (29.0-33.0); MEAN CORPUSCULAR HGB CONC 32.1 g/dl (32.0-37.0); MEAN CORPUSCULAR VOLUME 105.2 fl (82.0-101.0); MEAN PLATELET VOLUME 9.6 fl (7.4-10.4); MONOCYTE # 0.3 10^3/ul (0.3-0.9); MONOCYTES % 8.1 % (0.0-11.0); NEUTROPHIL # 2.6 10^3/ul (1.6-7.5); NEUTROPHILS % 68.4 % (39.0-77.0); NUCLEATED RED BLOOD CELLS% 0.5 /100WBC (0.0-0.0); PLATELET COUNT 145 10^3/UL (140-415); RED BLOOD COUNT 2.13 10^6/ul (4.20-5.40); RED CELL DISTRIBUTION WIDTH 16.1 % (11.5-14.5)
[2017-08-29 05:18] LABS: WHITE BLOOD COUNT 3.8 10^3/ul (4.8-10.8)
[2017-08-29 06:03] LABS: ALANINE AMINOTRANSFERASE 24 IU/L (13-69); ALBUMIN 3.1 g/dl (3.3-4.9); ALBUMIN/GLOBULIN RATIO 1.19; ALKALINE PHOSPHATASE 1393 IU/L (42-121); ANION GAP 18 (8-16); ASPARTATE AMINO TRANSFERASE 16 IU/L (15-46); BLOOD UREA NITROGEN 21 mg/dl (7-20); CALCIUM 6.8 mg/dl (8.4-10.2); CARBON DIOXIDE 24 mmol/L (21-31); CHLORIDE 107 mmol/L (97-110); GLUCOSE 70 mg/dl (70-220); PHOSPHORUS 2.3 mg/dl (2.5-4.9); POTASSIUM 4.6 mmol/L (3.5-5.1); SODIUM 144 mmol/L (135-144); TOTAL PROTEIN 5.7 g/dl (6.1-8.1)
[2017-08-29 08:13] LABS: CALCIUM 7.4 mg/dl (8.4-10.2)
[2017-08-29] MEDS: SEVELAMER 400 MG TAB PO ×3 (08:24→16:52)
[2017-08-29] MEDS: FOLIC ACID 1 MG TAB PO (08:24)
[2017-08-29] MEDS: CALCIUM CARBONATE 500 MG CHEW TAB PO ×4 (09:44→21:17)
[2017-08-29] MEDS: CALCITRIOL 1 MCG INJ IV ×3 (09:45→21:17)
[2017-08-29] MEDS: morphine 2 MG INJ IV ×4 (09:52→23:05)
[2017-08-29] MEDS: EPOETIN 3000 UNITS/1 ML INJ (ESRD) SC (16:53)
[2017-08-30] MEDS: morphine 2 MG INJ IV ×2 (05:19→23:05)
[2017-08-30] MEDS: DIPHENHYDRAMINE 50 MG INJ IV ×4 (05:26→23:05)
[2017-08-30 05:37] LABS: ADD MAN DIFF? NO; BASOPHILS % 0.5 % (0.0-2.0); EOSINOPHILS # 0.1 10^3/ul (0.0-0.5); EOSINOPHILS % 3.2 % (0.0-7.0); HEMATOCRIT 23.9 % (37.0-47.0); HEMOGLOBIN 7.5 g/dl (12.0-16.0); LYMPHOCYTES # 1.2 10^3/ul (0.8-2.9); LYMPHOCYTES % 29.7 % (15.0-51.0); MEAN CORPUSCULAR HEMOGLOBIN 33.3 pg (29.0-33.0); MEAN CORPUSCULAR HGB CONC 31.4 g/dl (32.0-37.0); MEAN CORPUSCULAR VOLUME 106.2 fl (82.0-101.0); MEAN PLATELET VOLUME 9.7 fl (7.4-10.4); MONOCYTE # 0.4 10^3/ul (0.3-0.9); MONOCYTES % 9.6 % (0.0-11.0); NEUTROPHIL # 2.3 10^3/ul (1.6-7.5); NEUTROPHILS % 56.5 % (39.0-77.0); PLATELET COUNT 138 10^3/UL (140-415); RED BLOOD COUNT 2.25 10^6/ul (4.20-5.40)
[2017-08-30 05:37] LABS: WHITE BLOOD COUNT 4.1 10^3/ul (4.8-10.8)
[2017-08-30 06:00] LABS: ANION GAP 20 (8-16); BLOOD UREA NITROGEN 40 mg/dl (7-20); CALCIUM 6.6 mg/dl (8.4-10.2); CARBON DIOXIDE 25 mmol/L (21-31); CHLORIDE 102 mmol/L (97-110); CREATININE 6.93 mg/dl (0.44-1.00); GLUCOSE 66 mg/dl (70-220); POTASSIUM 5.8 mmol/L (3.5-5.1); SODIUM 141 mmol/L (135-144)
[2017-08-30 06:10] LABS: PHOSPHORUS 2.9 mg/dl (2.5-4.9)
[2017-08-30 06:10] LABS: CALCIUM 6.6 mg/dl (8.4-10.2)
[2017-08-30] MEDS: SEVELAMER 400 MG TAB PO ×3 (08:32→17:04)
[2017-08-30] MEDS: CALCITRIOL 1 MCG INJ IV ×3 (08:32→20:45)
[2017-08-30] MEDS: FOLIC ACID 1 MG TAB PO (08:32)
[2017-08-30] MEDS: CALCIUM CARBONATE 500 MG CHEW TAB PO ×4 (08:32→20:45)
[2017-08-30 10:58] LABS: CREATINE KINASE 29 IU/L (23-200)
[2017-08-30 11:11] LABS: CK INDEX 0.8; CK-MB < 0.22 ng/ml (0.0-2.4); TROPONIN-I < 0.012 ng/ml (0.00-0.12)
[2017-08-30] MEDS: CALCIUM GLUCONATE 10% 2 GM in SOD CHLORIDE 0.9% 100 ML IVPB (13:00)
[2017-08-30 15:54] LABS: CALCIUM 8.5 mg/dl (8.4-10.2)
[2017-08-30 15:54] LABS: PHOSPHORUS 3.6 mg/dl (2.5-4.9)
[2017-08-30] MEDS: FLUOCINONIDE 0.05% 15 GM CR TOP (16:57)
[2017-08-31] MEDS: DIPHENHYDRAMINE 50 MG INJ IV ×4 (05:17→23:09)
[2017-08-31] MEDS: morphine 2 MG INJ IV ×3 (05:18→23:09)
[2017-08-31 06:02] LABS: ADD MAN DIFF? NO
[2017-08-31 06:09] LABS: BASOPHILS % 0.6 % (0.0-2.0); EOSINOPHILS # 0.1 10^3/ul (0.0-0.5); EOSINOPHILS % 2.7 % (0.0-7.0); HEMATOCRIT 25.9 % (37.0-47.0); HEMOGLOBIN 8.4 g/dl (12.0-16.0); LYMPHOCYTES # 1.3 10^3/ul (0.8-2.9); MEAN CORPUSCULAR HEMOGLOBIN 33.6 pg (29.0-33.0); MEAN CORPUSCULAR HGB CONC 32.4 g/dl (32.0-37.0); MEAN CORPUSCULAR VOLUME 103.6 fl (82.0-101.0); MEAN PLATELET VOLUME 9.9 fl (7.4-10.4); MONOCYTE # 0.4 10^3/ul (0.3-0.9); NEUTROPHIL # 3.3 10^3/ul (1.6-7.5); NEUTROPHILS % 64.5 % (39.0-77.0); PLATELET COUNT 156 10^3/UL (140-415); RED CELL DISTRIBUTION WIDTH 15.7 % (11.5-14.5)
[2017-08-31 06:09] LABS: WHITE BLOOD COUNT 5.1 10^3/ul (4.8-10.8)
[2017-08-31 06:40] LABS: ALANINE AMINOTRANSFERASE 16 IU/L (13-69); ALBUMIN 3.7 g/dl (3.3-4.9); ALBUMIN/GLOBULIN RATIO 1.48; ANION GAP 20 (8-16); ASPARTATE AMINO TRANSFERASE 15 IU/L (15-46); BILIRUBIN,INDIRECT 0.1 mg/dl (0-1.1); BILIRUBIN,TOTAL 0.1 mg/dl (0.2-1.3); BLOOD UREA NITROGEN 43 mg/dl (7-20); CALCIUM 6.7 mg/dl (8.4-10.2); CARBON DIOXIDE 26 mmol/L (21-31); CHLORIDE 102 mmol/L (97-110); CREATININE 5.47 mg/dl (0.44-1.00); GLUCOSE 66 mg/dl (70-220); POTASSIUM 5.1 mmol/L (3.5-5.1); SODIUM 143 mmol/L (135-144); TOTAL PROTEIN 6.2 g/dl (6.1-8.1)
[2017-08-31 06:51] LABS: ALKALINE PHOSPHATASE 1763 IU/L (42-121)
[2017-08-31] MEDS: SEVELAMER 400 MG TAB PO ×3 (09:00→16:53)
[2017-08-31] MEDS: FOLIC ACID 1 MG TAB PO (09:05)
[2017-08-31] MEDS: CALCIUM CARBONATE 500 MG CHEW TAB PO ×4 (09:06→21:57)
[2017-08-31] MEDS: CALCITRIOL 1 MCG INJ IV ×3 (10:10→22:03)
[2017-08-31] MEDS: FLUOCINONIDE 0.05% 15 GM CR TOP (11:03)
[2017-08-31] MEDS: EPOETIN 3000 UNITS/1 ML INJ (ESRD) SC (16:56)
[2017-09-01] MEDS: DIPHENHYDRAMINE 50 MG INJ IV ×4 (05:00→23:06)
[2017-09-01] MEDS: morphine 2 MG INJ IV ×5 (05:00→23:06)
[2017-09-01 05:46] LABS: ADD MAN DIFF? NO
[2017-09-01 05:49] LABS: WHITE BLOOD COUNT 6.6 10^3/ul (4.8-10.8)
[2017-09-01 05:49] LABS: BASOPHILS % 0.6 % (0.0-2.0); EOSINOPHILS # 0.2 10^3/ul (0.0-0.5); EOSINOPHILS % 2.3 % (0.0-7.0); HEMATOCRIT 29.7 % (37.0-47.0); HEMOGLOBIN 9.9 g/dl (12.0-16.0); LYMPHOCYTES # 1.6 10^3/ul (0.8-2.9); LYMPHOCYTES % 24.7 % (15.0-51.0); MEAN CORPUSCULAR HGB CONC 33.3 g/dl (32.0-37.0); MEAN CORPUSCULAR VOLUME 102.1 fl (82.0-101.0); MEAN PLATELET VOLUME 9.9 fl (7.4-10.4); MONOCYTE # 0.5 10^3/ul (0.3-0.9); MONOCYTES % 7.1 % (0.0-11.0); NEUTROPHIL # 4.3 10^3/ul (1.6-7.5); PLATELET COUNT 160 10^3/UL (140-415); RED BLOOD COUNT 2.91 10^6/ul (4.20-5.40); RED CELL DISTRIBUTION WIDTH 15.7 % (11.5-14.5)
[2017-09-01 06:07] LABS: ALANINE AMINOTRANSFERASE 19 IU/L (13-69); ALBUMIN 4.2 g/dl (3.3-4.9); ALBUMIN/GLOBULIN RATIO 1.55; ANION GAP 21 (8-16); ASPARTATE AMINO TRANSFERASE 17 IU/L (15-46); BLOOD UREA NITROGEN 44 mg/dl (7-20); CALCIUM 6.8 mg/dl (8.4-10.2); CARBON DIOXIDE 27 mmol/L (21-31); CHLORIDE 100 mmol/L (97-110); GLUCOSE 104 mg/dl (70-220); POTASSIUM 4.7 mmol/L (3.5-5.1); SODIUM 143 mmol/L (135-144); TOTAL PROTEIN 6.9 g/dl (6.1-8.1)
[2017-09-01 06:17] LABS: ALKALINE PHOSPHATASE 1796 IU/L (42-121)
[2017-09-01] MEDS: CALCIUM CARBONATE 500 MG CHEW TAB PO ×4 (08:54→21:05)
[2017-09-01] MEDS: SEVELAMER 400 MG TAB PO ×3 (08:54→17:03)
[2017-09-01] MEDS: CALCITRIOL 1 MCG INJ IV ×2 (08:54→12:33)
[2017-09-01] MEDS: FOLIC ACID 1 MG TAB PO (08:54)
[2017-09-01] MEDS: ERGOCALCIFEROL 50,000 UNIT CAP PO (11:04)
[2017-09-01] MEDS: CALCITRIOL 0.25 MCG CAP PO (21:45)
[2017-09-02] MEDS: DIPHENHYDRAMINE 50 MG INJ IV ×4 (05:09→22:53)
[2017-09-02] MEDS: morphine 2 MG INJ IV ×4 (05:10→22:53)
[2017-09-02 05:32] LABS: WHITE BLOOD COUNT 10.2 10^3/ul (4.8-10.8)
[2017-09-02 05:32] LABS: ADD MAN DIFF? NO; BASOPHIL # 0.1 10^3/ul (0.0-0.1); BASOPHILS % 0.5 % (0.0-2.0); EOSINOPHILS # 0.2 10^3/ul (0.0-0.5); EOSINOPHILS % 1.5 % (0.0-7.0); HEMATOCRIT 31.7 % (37.0-47.0); HEMOGLOBIN 10.5 g/dl (12.0-16.0); LYMPHOCYTES % 19.5 % (15.0-51.0); MEAN CORPUSCULAR HEMOGLOBIN 33.5 pg (29.0-33.0); MEAN CORPUSCULAR HGB CONC 33.1 g/dl (32.0-37.0); MEAN CORPUSCULAR VOLUME 101.3 fl (82.0-101.0); MEAN PLATELET VOLUME 9.9 fl (7.4-10.4); MONOCYTE # 0.7 10^3/ul (0.3-0.9); MONOCYTES % 6.3 % (0.0-11.0); NEUTROPHIL # 7.3 10^3/ul (1.6-7.5); NEUTROPHILS % 71.7 % (39.0-77.0); PLATELET COUNT 208 10^3/UL (140-415); RED BLOOD COUNT 3.13 10^6/ul (4.20-5.40); RED CELL DISTRIBUTION WIDTH 15.9 % (11.5-14.5)
[2017-09-02 05:58] LABS: CHLORIDE 99 mmol/L (97-110)
[2017-09-02 06:00] LABS: ALBUMIN 4.4 g/dl (3.3-4.9); ANION GAP 21 (8-16); BLOOD UREA NITROGEN 30 mg/dl (7-20); CALCIUM 7.7 mg/dl (8.4-10.2); CARBON DIOXIDE 27 mmol/L (21-31); CREATININE 4.53 mg/dl (0.44-1.00); GLUCOSE 122 mg/dl (70-220); PHOSPHORUS 2.9 mg/dl (2.5-4.9); SODIUM 142 mmol/L (135-144)
[2017-09-02 06:04] LABS: ANION GAP 20 (8-16); BLOOD UREA NITROGEN 29 mg/dl (7-20); CALCIUM 7.6 mg/dl (8.4-10.2); CARBON DIOXIDE 27 mmol/L (21-31); CHLORIDE 100 mmol/L (97-110); GLUCOSE 124 mg/dl (70-220); POTASSIUM 4.7 mmol/L (3.5-5.1); SODIUM 142 mmol/L (135-144)
[2017-09-02 06:46] LABS: MAGNESIUM 2.9 mg/dl (1.7-2.5)
[2017-09-02] MEDS: SEVELAMER 400 MG TAB PO ×3 (07:47→17:03)
[2017-09-02 08:35] LABS: IONIZED CALCIUM 0.9 mmol/L (1.1-1.4)
[2017-09-02] MEDS: FOLIC ACID 1 MG TAB PO (09:25)
[2017-09-02] MEDS: CALCIUM CARBONATE 500 MG CHEW TAB PO ×4 (09:25→21:03)
[2017-09-02] MEDS: CALCITRIOL 0.25 MCG CAP PO ×3 (09:35→22:49)
[2017-09-02 09:56] LABS: CALCIUM 5.9 mg/dl (8.4-10.2); POTASSIUM 7.2 mmol/L (3.5-5.1)
[2017-09-02] MEDS ORDERED: CALCITRIOL 0.25 MCG CAP PO ×2 (13:00)
[2017-09-02] MEDS: EPOETIN 3000 UNITS/1 ML INJ (ESRD) SC (17:05)
[2017-09-03] MEDS: CALCIUM CARBONATE 500 MG CHEW TAB PO ×4 (00:10→13:33)
[2017-09-03] MEDS: DIPHENHYDRAMINE 50 MG INJ IV ×4 (04:54→22:33)
[2017-09-03] MEDS: morphine 2 MG INJ IV ×4 (04:55→22:34)
[2017-09-03] MEDS: SEVELAMER 400 MG TAB PO ×3 (08:26→17:07)
[2017-09-03] MEDS: FOLIC ACID 1 MG TAB PO (08:27)
[2017-09-03] MEDS: CALCITRIOL 0.25 MCG CAP PO ×3 (08:27→20:08)
[2017-09-03 13:21] LABS: ADD MAN DIFF? NO
[2017-09-03 13:22] LABS: BASOPHIL # 0.1 10^3/ul (0.0-0.1); BASOPHILS % 0.7 % (0.0-2.0); EOSINOPHILS # 0.2 10^3/ul (0.0-0.5); EOSINOPHILS % 3.3 % (0.0-7.0); HEMATOCRIT 30.2 % (37.0-47.0); HEMOGLOBIN 10.3 g/dl (12.0-16.0); LYMPHOCYTES # 1.8 10^3/ul (0.8-2.9); LYMPHOCYTES % 26.3 % (15.0-51.0); MEAN CORPUSCULAR HEMOGLOBIN 34.3 pg (29.0-33.0); MEAN CORPUSCULAR HGB CONC 34.1 g/dl (32.0-37.0); MEAN CORPUSCULAR VOLUME 100.7 fl (82.0-101.0); MEAN PLATELET VOLUME 9.6 fl (7.4-10.4); MONOCYTE # 0.5 10^3/ul (0.3-0.9); MONOCYTES % 7.2 % (0.0-11.0); NEUTROPHIL # 4.2 10^3/ul (1.6-7.5); NEUTROPHILS % 62.1 % (39.0-77.0); PLATELET COUNT 201 10^3/UL (140-415); RED CELL DISTRIBUTION WIDTH 15.9 % (11.5-14.5)
[2017-09-03 13:22] LABS: WHITE BLOOD COUNT 6.8 10^3/ul (4.8-10.8)
[2017-09-03 13:41] LABS: ALANINE AMINOTRANSFERASE 14 IU/L (13-69); ALBUMIN 4.7 g/dl (3.3-4.9); ALBUMIN/GLOBULIN RATIO 1.38; ANION GAP 18 (8-16); ASPARTATE AMINO TRANSFERASE 19 IU/L (15-46); BILIRUBIN,INDIRECT 0.2 mg/dl (0-1.1); BILIRUBIN,TOTAL 0.2 mg/dl (0.2-1.3); BLOOD UREA NITROGEN 24 mg/dl (7-20); CARBON DIOXIDE 27 mmol/L (21-31); CHLORIDE 104 mmol/L (97-110); CREATININE 3.63 mg/dl (0.44-1.00); GLUCOSE 98 mg/dl (70-220); POTASSIUM 3.8 mmol/L (3.5-5.1); SODIUM 145 mmol/L (135-144); TOTAL PROTEIN 8.1 g/dl (6.1-8.1)
[2017-09-03 13:54] LABS: ALKALINE PHOSPHATASE 2139 IU/L (42-121)
[2017-09-03] MEDS: HYDROCODONE/APAP (10/325) TAB PO (20:24)
[2017-09-04] MEDS: DIPHENHYDRAMINE 50 MG INJ IV ×4 (04:29→22:56)
[2017-09-04] MEDS: morphine 2 MG INJ IV ×4 (04:29→22:56)
[2017-09-04 05:07] LABS: ADD MAN DIFF? NO
[2017-09-04 05:11] LABS: BASOPHILS % 0.7 % (0.0-2.0); EOSINOPHILS # 0.2 10^3/ul (0.0-0.5); EOSINOPHILS % 2.7 % (0.0-7.0); HEMOGLOBIN 8.6 g/dl (12.0-16.0); LYMPHOCYTES # 1.4 10^3/ul (0.8-2.9); LYMPHOCYTES % 25.4 % (15.0-51.0); MEAN CORPUSCULAR HEMOGLOBIN 33.2 pg (29.0-33.0); MEAN CORPUSCULAR HGB CONC 31.9 g/dl (32.0-37.0); MEAN CORPUSCULAR VOLUME 104.2 fl (82.0-101.0); MEAN PLATELET VOLUME 9.9 fl (7.4-10.4); MONOCYTE # 0.4 10^3/ul (0.3-0.9); MONOCYTES % 7.7 % (0.0-11.0); NEUTROPHIL # 3.5 10^3/ul (1.6-7.5); NEUTROPHILS % 63.1 % (39.0-77.0); PLATELET COUNT 150 10^3/UL (140-415); RED BLOOD COUNT 2.59 10^6/ul (4.20-5.40); RED CELL DISTRIBUTION WIDTH 16.4 % (11.5-14.5)
[2017-09-04 05:11] LABS: WHITE BLOOD COUNT 5.6 10^3/ul (4.8-10.8)
[2017-09-04 05:42] LABS: ALANINE AMINOTRANSFERASE 18 IU/L (13-69); ALBUMIN 4.2 g/dl (3.3-4.9); ALBUMIN/GLOBULIN RATIO 1.55; ANION GAP 19 (8-16); ASPARTATE AMINO TRANSFERASE 13 IU/L (15-46); BLOOD UREA NITROGEN 25 mg/dl (7-20); CALCIUM 7.4 mg/dl (8.4-10.2); CARBON DIOXIDE 29 mmol/L (21-31); CHLORIDE 103 mmol/L (97-110); CREATININE 4.96 mg/dl (0.44-1.00); GLUCOSE 80 mg/dl (70-220); POTASSIUM 4.8 mmol/L (3.5-5.1); SODIUM 146 mmol/L (135-144); TOTAL PROTEIN 6.9 g/dl (6.1-8.1)
[2017-09-04 05:50] LABS: ALKALINE PHOSPHATASE 1665 IU/L (42-121)
[2017-09-04] MEDS: CALCITRIOL 0.25 MCG CAP PO ×3 (08:19→20:16)
[2017-09-04] MEDS: FOLIC ACID 1 MG TAB PO (08:19)
[2017-09-04] MEDS: SEVELAMER 400 MG TAB PO ×3 (08:19→17:43)
[2017-09-04] MEDS: CALCIUM CARBONATE 500 MG CHEW TAB PO ×4 (08:19→20:17)
[2017-09-04] MEDS: ERGOCALCIFEROL (8000 UNITS/ML PO SYG) PO (10:06)
[2017-09-05] MEDS: CALCIUM CARBONATE 500 MG CHEW TAB PO ×6 (00:12→21:00)
[2017-09-05] MEDS: DIPHENHYDRAMINE 50 MG INJ IV ×4 (05:05→23:59)
[2017-09-05] MEDS: morphine 2 MG INJ IV ×3 (05:06→17:36)
[2017-09-05 05:46] LABS: ADD MAN DIFF? NO
[2017-09-05 05:57] LABS: WHITE BLOOD COUNT 6.6 10^3/ul (4.8-10.8)
[2017-09-05 05:57] LABS: BASOPHILS % 0.5 % (0.0-2.0); EOSINOPHILS # 0.2 10^3/ul (0.0-0.5); EOSINOPHILS % 3.2 % (0.0-7.0); HEMATOCRIT 26.7 % (37.0-47.0); HEMOGLOBIN 8.7 g/dl (12.0-16.0); LYMPHOCYTES # 1.7 10^3/ul (0.8-2.9); LYMPHOCYTES % 25.3 % (15.0-51.0); MEAN CORPUSCULAR HEMOGLOBIN 34.1 pg (29.0-33.0); MEAN CORPUSCULAR HGB CONC 32.6 g/dl (32.0-37.0); MEAN CORPUSCULAR VOLUME 104.7 fl (82.0-101.0); MEAN PLATELET VOLUME 10.1 fl (7.4-10.4); MONOCYTE # 0.5 10^3/ul (0.3-0.9); MONOCYTES % 7.6 % (0.0-11.0); NEUTROPHIL # 4.2 10^3/ul (1.6-7.5); NEUTROPHILS % 63.1 % (39.0-77.0); PLATELET COUNT 181 10^3/UL (140-415); RED BLOOD COUNT 2.55 10^6/ul (4.20-5.40); RED CELL DISTRIBUTION WIDTH 16.1 % (11.5-14.5)
[2017-09-05 07:08] LABS: ALANINE AMINOTRANSFERASE 19 IU/L (13-69); ALBUMIN/GLOBULIN RATIO 1.73; ALKALINE PHOSPHATASE 1448 IU/L (42-121); ANION GAP 20 (8-16); ASPARTATE AMINO TRANSFERASE 15 IU/L (15-46); BLOOD UREA NITROGEN 43 mg/dl (7-20); CARBON DIOXIDE 25 mmol/L (21-31); CHLORIDE 102 mmol/L (97-110); CREATININE 7.11 mg/dl (0.44-1.00); GLUCOSE 82 mg/dl (70-220); POTASSIUM 5.4 mmol/L (3.5-5.1); SODIUM 142 mmol/L (135-144); TOTAL PROTEIN 6.3 g/dl (6.1-8.1)
[2017-09-05] MEDS: FOLIC ACID 1 MG TAB PO (08:49)
[2017-09-05] MEDS: SEVELAMER 400 MG TAB PO ×3 (08:49→19:32)
[2017-09-05] MEDS: CALCITRIOL 0.25 MCG CAP PO ×4 (08:50→21:00)
[2017-09-05] MEDS: ERGOCALCIFEROL (8000 UNITS/ML PO SYG) PO (11:51)
[2017-09-05 16:45] LABS: ALANINE AMINOTRANSFERASE 19 IU/L (13-69); ALBUMIN 4.1 g/dl (3.3-4.9); ALBUMIN/GLOBULIN RATIO 1.86; ALKALINE PHOSPHATASE 1410 IU/L (42-121); ANION GAP 20 (8-16); ASPARTATE AMINO TRANSFERASE 12 IU/L (15-46); BLOOD UREA NITROGEN 56 mg/dl (7-20); CALCIUM 6.6 mg/dl (8.4-10.2); CARBON DIOXIDE 26 mmol/L (21-31); CHLORIDE 102 mmol/L (97-110); CREATININE 8.49 mg/dl (0.44-1.00); GLUCOSE 85 mg/dl (70-220); POTASSIUM 5.7 mmol/L (3.5-5.1); SODIUM 142 mmol/L (135-144); TOTAL PROTEIN 6.3 g/dl (6.1-8.1)
[2017-09-05] MEDS ORDERED: EPOETIN 3000 UNITS/1 ML INJ (ESRD) SC (17:00)
[2017-09-05] MEDS: CLINDAMYCIN 1% 30 ML BTL TOP ×2 (17:23→22:00)
[2017-09-05] MEDS: EPOETIN 3000 UNITS/1 ML INJ (ESRD) SC (17:27)
[2017-09-05 18:02] LABS: PTH CALCIUM 9.7 mg/dL (8.6-10.2)
[2017-09-06] MEDS: CALCIUM CARBONATE 500 MG CHEW TAB PO ×6 (00:08→20:56)
[2017-09-06] MEDS: morphine 2 MG INJ IV ×3 (02:01→15:31)
[2017-09-06] MEDS: HYDROCODONE/APAP (10/325) TAB PO (03:24)
[2017-09-06] MEDS: DIPHENHYDRAMINE 50 MG INJ IV ×3 (05:55→18:28)
[2017-09-06 06:06] LABS: ADD MAN DIFF? NO
[2017-09-06 06:24] LABS: BASOPHILS % 0.6 % (0.0-2.0); EOSINOPHILS # 0.2 10^3/ul (0.0-0.5); EOSINOPHILS % 4.1 % (0.0-7.0); HEMATOCRIT 27.8 % (37.0-47.0); LYMPHOCYTES # 1.1 10^3/ul (0.8-2.9); LYMPHOCYTES % 22.4 % (15.0-51.0); MEAN CORPUSCULAR HEMOGLOBIN 33.6 pg (29.0-33.0); MEAN CORPUSCULAR HGB CONC 32.4 g/dl (32.0-37.0); MEAN CORPUSCULAR VOLUME 103.7 fl (82.0-101.0); MEAN PLATELET VOLUME 10.2 fl (7.4-10.4); MONOCYTE # 0.4 10^3/ul (0.3-0.9); NEUTROPHIL # 3.2 10^3/ul (1.6-7.5); NEUTROPHILS % 64.7 % (39.0-77.0); PLATELET COUNT 185 10^3/UL (140-415); RED BLOOD COUNT 2.68 10^6/ul (4.20-5.40); RED CELL DISTRIBUTION WIDTH 16.3 % (11.5-14.5)
[2017-09-06 06:24] LABS: WHITE BLOOD COUNT 4.9 10^3/ul (4.8-10.8)
[2017-09-06 06:48] LABS: ANION GAP 18 (8-16); BLOOD UREA NITROGEN 21 mg/dl (7-20); CALCIUM 8.6 mg/dl (8.4-10.2); CARBON DIOXIDE 31 mmol/L (21-31); CHLORIDE 102 mmol/L (97-110); CREATININE 4.01 mg/dl (0.44-1.00); GLUCOSE 76 mg/dl (70-220); POTASSIUM 4.8 mmol/L (3.5-5.1); SODIUM 146 mmol/L (135-144)
[2017-09-06 06:54] LABS: MAGNESIUM 2.5 mg/dl (1.7-2.5)
[2017-09-06 06:54] LABS: PHOSPHORUS 3.9 mg/dl (2.5-4.9)
[2017-09-06 06:56] LABS: PTH INTACT 9 pg/mL (14-64)
[2017-09-06] MEDS: SEVELAMER 400 MG TAB PO ×3 (07:58→16:51)
[2017-09-06] MEDS: FOLIC ACID 1 MG TAB PO (09:25)
[2017-09-06] MEDS: CALCITRIOL 0.25 MCG CAP PO ×2 (09:25→12:45)
[2017-09-06] MEDS: CLINDAMYCIN 1% 30 ML BTL TOP ×2 (09:30→21:04)
[2017-09-06] MEDS: COSYNTROPIN 0.25 MG INJ IV (10:28)
[2017-09-06] MEDS: LACTULOSE 30ML CUP PO (11:14)
[2017-09-06] MEDS: NA PHOSPHATE/BIPHOS 133 ML ENEMA PR (12:45)
[2017-09-06] MEDS: ROCALTROL PO ×2 (16:52→21:04)
[2017-09-07] MEDS: CALCIUM CARBONATE 500 MG CHEW TAB PO ×6 (01:40→20:35)
[2017-09-07] MEDS: morphine 2 MG INJ IV ×4 (01:43→20:09)
[2017-09-07] MEDS: DIPHENHYDRAMINE 50 MG INJ IV ×4 (01:43→20:09)
[2017-09-07 05:15] LABS: ADD MAN DIFF? NO; BASOPHILS % 0.6 % (0.0-2.0); EOSINOPHILS # 0.2 10^3/ul (0.0-0.5); EOSINOPHILS % 4.4 % (0.0-7.0); HEMATOCRIT 25.7 % (37.0-47.0); HEMOGLOBIN 8.2 g/dl (12.0-16.0); LYMPHOCYTES # 1.5 10^3/ul (0.8-2.9); LYMPHOCYTES % 31.5 % (15.0-51.0); MEAN CORPUSCULAR HEMOGLOBIN 33.6 pg (29.0-33.0); MEAN CORPUSCULAR HGB CONC 31.9 g/dl (32.0-37.0); MEAN CORPUSCULAR VOLUME 105.3 fl (82.0-101.0); MEAN PLATELET VOLUME 9.8 fl (7.4-10.4); MONOCYTE # 0.3 10^3/ul (0.3-0.9); MONOCYTES % 7.1 % (0.0-11.0); NEUTROPHIL # 2.7 10^3/ul (1.6-7.5); NEUTROPHILS % 56.2 % (39.0-77.0); PLATELET COUNT 182 10^3/UL (140-415); RED BLOOD COUNT 2.44 10^6/ul (4.20-5.40); RED CELL DISTRIBUTION WIDTH 16.1 % (11.5-14.5)
[2017-09-07 05:15] LABS: WHITE BLOOD COUNT 4.8 10^3/ul (4.8-10.8)
[2017-09-07 05:44] LABS: PHOSPHORUS 3.6 mg/dl (2.5-4.9)
[2017-09-07 05:54] LABS: ALANINE AMINOTRANSFERASE 20 IU/L (13-69); ALBUMIN 3.7 g/dl (3.3-4.9); ALBUMIN/GLOBULIN RATIO 1.37; ALKALINE PHOSPHATASE 1417 IU/L (42-121); ANION GAP 22 (8-16); ASPARTATE AMINO TRANSFERASE 13 IU/L (15-46); BLOOD UREA NITROGEN 45 mg/dl (7-20); CALCIUM 7.9 mg/dl (8.4-10.2); CARBON DIOXIDE 24 mmol/L (21-31); CHLORIDE 103 mmol/L (97-110); CREATININE 6.67 mg/dl (0.44-1.00); GLUCOSE 69 mg/dl (70-220); POTASSIUM 5.2 mmol/L (3.5-5.1); SODIUM 144 mmol/L (135-144); TOTAL PROTEIN 6.4 g/dl (6.1-8.1)
[2017-09-07] MEDS: FOLIC ACID 1 MG TAB PO (08:20)
[2017-09-07] MEDS: SEVELAMER 400 MG TAB PO ×3 (08:20→17:17)
[2017-09-07] MEDS: ROCALTROL PO ×4 (08:21→20:38)
[2017-09-07] MEDS: CLINDAMYCIN 1% 30 ML BTL TOP ×2 (08:21→20:37)
[2017-09-07] MEDS: DOCUSATE SODIUM 100 MG CAP PO ×2 (12:12→20:35)
[2017-09-07 15:57] LABS: CERULOPLASMIN 21 mg/dL (18-53)
[2017-09-07] MEDS: ERGOCALCIFEROL (8000 UNITS/ML PO SYG) PO (17:16)
[2017-09-07] MEDS: LACTULOSE 30ML CUP PO (17:16)
[2017-09-07] MEDS: POLYETHYLENE GLYCOL 17 GM PACKET PO (20:34)
[2017-09-07] MEDS: EPOETIN 3000 UNITS/1 ML INJ (ESRD) SC (20:38)
[2017-09-08] MEDS: CALCIUM CARBONATE 500 MG CHEW TAB PO ×3 (01:20→08:58)
[2017-09-08] MEDS: morphine 2 MG INJ IV ×6 (02:05→21:05)
[2017-09-08] MEDS: DIPHENHYDRAMINE 50 MG INJ IV ×4 (02:05→21:06)
[2017-09-08 06:00] LABS: ADD MAN DIFF? NO
[2017-09-08 06:04] LABS: BASOPHILS % 0.9 % (0.0-2.0); EOSINOPHILS # 0.2 10^3/ul (0.0-0.5); EOSINOPHILS % 4.6 % (0.0-7.0); HEMATOCRIT 26.6 % (37.0-47.0); HEMOGLOBIN 8.5 g/dl (12.0-16.0); LYMPHOCYTES # 1.3 10^3/ul (0.8-2.9); LYMPHOCYTES % 30.5 % (15.0-51.0); MEAN CORPUSCULAR HEMOGLOBIN 33.7 pg (29.0-33.0); MEAN CORPUSCULAR VOLUME 105.6 fl (82.0-101.0); MEAN PLATELET VOLUME 10.2 fl (7.4-10.4); MONOCYTE # 0.4 10^3/ul (0.3-0.9); MONOCYTES % 8.7 % (0.0-11.0); NEUTROPHIL # 2.4 10^3/ul (1.6-7.5); NEUTROPHILS % 55.1 % (39.0-77.0); PLATELET COUNT 187 10^3/UL (140-415); RED BLOOD COUNT 2.52 10^6/ul (4.20-5.40); RED CELL DISTRIBUTION WIDTH 16.1 % (11.5-14.5)
[2017-09-08 06:04] LABS: WHITE BLOOD COUNT 4.4 10^3/ul (4.8-10.8)
[2017-09-08 06:25] LABS: ALANINE AMINOTRANSFERASE 13 IU/L (13-69); ALBUMIN 3.5 g/dl (3.3-4.9); ALBUMIN/GLOBULIN RATIO 1.29; ALKALINE PHOSPHATASE 1210 IU/L (42-121); ANION GAP 15 (8-16); ASPARTATE AMINO TRANSFERASE 11 IU/L (15-46); BLOOD UREA NITROGEN 23 mg/dl (7-20); CALCIUM 7.3 mg/dl (8.4-10.2); CARBON DIOXIDE 26 mmol/L (21-31); CHLORIDE 108 mmol/L (97-110); CREATININE 4.08 mg/dl (0.44-1.00); GLUCOSE 65 mg/dl (70-220); POTASSIUM 4.3 mmol/L (3.5-5.1); SODIUM 145 mmol/L (135-144); TOTAL PROTEIN 6.2 g/dl (6.1-8.1)
[2017-09-08] MEDS: HYDROCODONE/APAP (10/325) TAB PO (08:42)
[2017-09-08] MEDS: SEVELAMER 400 MG TAB PO ×3 (08:58→17:30)
[2017-09-08] MEDS: FOLIC ACID 1 MG TAB PO (08:58)
[2017-09-08] MEDS: ROCALTROL PO ×4 (08:58→21:07)
[2017-09-08] MEDS: DOCUSATE SODIUM 100 MG CAP PO ×2 (08:58→21:06)
[2017-09-08] MEDS: CLINDAMYCIN 1% 30 ML BTL TOP ×2 (08:59→21:07)
[2017-09-08] MEDS: CALCIUM CARBONATE 1.25 GM TAB PO ×3 (12:14→21:06)
[2017-09-08] MEDS: ERGOCALCIFEROL (8000 UNITS/ML PO SYG) PO (13:03)
[2017-09-08] MEDS: CALCITRIOL 1 MCG INJ IV (16:32)
[2017-09-08] MEDS: CALCITRIOL 0.25 MCG CAP PO (21:06)
[2017-09-09] MEDS: morphine 2 MG INJ IV ×4 (02:34→20:08)
[2017-09-09] MEDS: DIPHENHYDRAMINE 50 MG INJ IV ×4 (02:34→20:07)
[2017-09-09 07:27] LABS: ALANINE AMINOTRANSFERASE 15 IU/L (13-69); ALBUMIN 3.9 g/dl (3.3-4.9); ALKALINE PHOSPHATASE 1282 IU/L (42-121); ANION GAP 20 (8-16); ASPARTATE AMINO TRANSFERASE 14 IU/L (15-46); BLOOD UREA NITROGEN 56 mg/dl (7-20); CALCIUM 7.3 mg/dl (8.4-10.2); CARBON DIOXIDE 27 mmol/L (21-31); CHLORIDE 100 mmol/L (97-110); CREATININE 7.31 mg/dl (0.44-1.00); GLUCOSE 74 mg/dl (70-220); POTASSIUM 5.3 mmol/L (3.5-5.1); SODIUM 142 mmol/L (135-144); TOTAL PROTEIN 6.5 g/dl (6.1-8.1)
[2017-09-09 07:33] LABS: MAGNESIUM 3.1 mg/dl (1.7-2.5)
[2017-09-09 07:33] LABS: PHOSPHORUS 3.3 mg/dl (2.5-4.9)
[2017-09-09] MEDS: SEVELAMER 400 MG TAB PO ×3 (08:12→17:58)
[2017-09-09] MEDS: FOLIC ACID 1 MG TAB PO (08:12)
[2017-09-09] MEDS: DOCUSATE SODIUM 100 MG CAP PO ×2 (08:12→20:07)
[2017-09-09] MEDS: CLINDAMYCIN 1% 30 ML BTL TOP ×2 (08:14→21:35)
[2017-09-09] MEDS: CALCITRIOL 0.25 MCG CAP PO ×4 (08:16→21:35)
[2017-09-09] MEDS: CALCIUM CARBONATE 1.25 GM TAB PO ×4 (08:18→20:07)
[2017-09-09] MEDS ORDERED: EPOETIN 4000 UNITS/1 ML INJ (ESRD) SC (17:00)
[2017-09-09] MEDS: EPOETIN 3000 UNITS/1 ML INJ (ESRD) IV (21:37)
[2017-09-10] MEDS: DIPHENHYDRAMINE 50 MG INJ IV ×4 (02:06→20:06)
[2017-09-10] MEDS: morphine 2 MG INJ IV ×4 (02:06→20:06)
[2017-09-10 07:24] LABS: MAGNESIUM 2.7 mg/dl (1.7-2.5)
[2017-09-10 07:27] LABS: ALANINE AMINOTRANSFERASE 13 IU/L (13-69); ALBUMIN 4.1 g/dl (3.3-4.9); ALBUMIN/GLOBULIN RATIO 1.57; ALKALINE PHOSPHATASE 1241 IU/L (42-121); ANION GAP 21 (8-16); ASPARTATE AMINO TRANSFERASE 13 IU/L (15-46); BLOOD UREA NITROGEN 49 mg/dl (7-20); CALCIUM 7.6 mg/dl (8.4-10.2); CARBON DIOXIDE 25 mmol/L (21-31); CHLORIDE 103 mmol/L (97-110); GLUCOSE 80 mg/dl (70-220); POTASSIUM 5.4 mmol/L (3.5-5.1); SODIUM 144 mmol/L (135-144); TOTAL PROTEIN 6.7 g/dl (6.1-8.1)
[2017-09-10] MEDS: LACTULOSE 30ML CUP PO (08:14)
[2017-09-10] MEDS: CALCITRIOL 0.25 MCG CAP PO ×4 (08:14→20:45)
[2017-09-10] MEDS: SEVELAMER 400 MG TAB PO ×3 (08:14→18:05)
[2017-09-10] MEDS: DOCUSATE SODIUM 100 MG CAP PO ×2 (08:15→20:44)
[2017-09-10] MEDS: FOLIC ACID 1 MG TAB PO (08:20)
[2017-09-10] MEDS: CLINDAMYCIN 1% 30 ML BTL TOP ×2 (10:29→20:45)
[2017-09-10] MEDS: CALCIUM CARBONATE 750 MG CHEW TAB PO ×4 (10:29→23:53)
[2017-09-10] MEDS: ERGOCALCIFEROL (8000 UNITS/ML PO SYG) PO (10:30)
[2017-09-11] MEDS: ALTEPLASE (CATHFLO) 2 MG INJ CATHETER (00:42)
[2017-09-11] MEDS: morphine 2 MG INJ IV ×5 (02:09→20:00)
[2017-09-11] MEDS: DIPHENHYDRAMINE 50 MG INJ IV ×4 (02:09→20:00)
[2017-09-11] MEDS: SEVELAMER 400 MG TAB PO ×3 (08:31→18:02)
[2017-09-11] MEDS: CALCIUM CARBONATE 750 MG CHEW TAB PO ×4 (08:31→22:02)
[2017-09-11] MEDS: FOLIC ACID 1 MG TAB PO (08:31)
[2017-09-11] MEDS: DOCUSATE SODIUM 100 MG CAP PO ×2 (08:31→21:58)
[2017-09-11] MEDS: CLINDAMYCIN 1% 30 ML BTL TOP ×2 (08:34→22:02)
[2017-09-11] MEDS: CALCITRIOL 0.25 MCG CAP PO ×4 (10:17→22:02)
[2017-09-11] MEDS ORDERED: BISACODYL (EC) 5 MG TAB PO (13:30)
[2017-09-12] MEDS: morphine 2 MG INJ IV ×5 (02:04→20:09)
[2017-09-12] MEDS: DIPHENHYDRAMINE 50 MG INJ IV ×4 (02:04→20:09)
[2017-09-12] MEDS: SEVELAMER 400 MG TAB PO ×3 (08:08→17:46)
[2017-09-12 08:41] LABS: ADD MAN DIFF? NO
[2017-09-12] MEDS: FOLIC ACID 1 MG TAB PO (08:55)
[2017-09-12] MEDS: DOCUSATE SODIUM 100 MG CAP PO ×2 (08:55→20:38)
[2017-09-12] MEDS: CALCITRIOL 0.25 MCG CAP PO ×4 (08:55→20:31)
[2017-09-12] MEDS: CALCIUM CARBONATE 750 MG CHEW TAB PO ×4 (08:55→20:31)
[2017-09-12] MEDS: CLINDAMYCIN 1% 30 ML BTL TOP ×2 (08:58→20:38)
[2017-09-12 09:04] LABS: ALANINE AMINOTRANSFERASE 16 IU/L (13-69); ALBUMIN 3.9 g/dl (3.3-4.9); ALBUMIN/GLOBULIN RATIO 1.62; ALKALINE PHOSPHATASE 1038 IU/L (42-121); ANION GAP 20 (8-16); ASPARTATE AMINO TRANSFERASE 13 IU/L (15-46); BLOOD UREA NITROGEN 81 mg/dl (7-20); CARBON DIOXIDE 25 mmol/L (21-31); CHLORIDE 100 mmol/L (97-110); CREATININE 9.39 mg/dl (0.44-1.00); GLUCOSE 73 mg/dl (70-220); SODIUM 138 mmol/L (135-144); TOTAL PROTEIN 6.3 g/dl (6.1-8.1)
[2017-09-12 09:07] LABS: POTASSIUM 6.8 mmol/L (3.5-5.1)
[2017-09-12 09:39] LABS: BASOPHILS % 0.5 % (0.0-2.0); EOSINOPHILS # 0.3 10^3/ul (0.0-0.5); EOSINOPHILS % 6.7 % (0.0-7.0); HEMATOCRIT 25.6 % (37.0-47.0); HEMOGLOBIN 8.2 g/dl (12.0-16.0); LYMPHOCYTES # 1.2 10^3/ul (0.8-2.9); LYMPHOCYTES % 30.8 % (15.0-51.0); MEAN CORPUSCULAR VOLUME 106.2 fl (82.0-101.0); MEAN PLATELET VOLUME 10.4 fl (7.4-10.4); MONOCYTE # 0.4 10^3/ul (0.3-0.9); NEUTROPHILS % 51.7 % (39.0-77.0); PLATELET COUNT 184 10^3/UL (140-415); RED BLOOD COUNT 2.41 10^6/ul (4.20-5.40); RED CELL DISTRIBUTION WIDTH 15.7 % (11.5-14.5)
[2017-09-12 09:39] LABS: WHITE BLOOD COUNT 3.9 10^3/ul (4.8-10.8)
[2017-09-12] MEDS: EPOETIN 3000 UNITS/1 ML INJ (ESRD) SC (17:53)
[2017-09-13] MEDS: DIPHENHYDRAMINE 50 MG INJ IV ×4 (04:29→22:31)
[2017-09-13] MEDS: morphine 2 MG INJ IV ×4 (04:29→22:31)
[2017-09-13] MEDS: SEVELAMER 400 MG TAB PO ×4 (08:32→21:44)
[2017-09-13] MEDS: DOCUSATE SODIUM 100 MG CAP PO ×2 (08:32→21:44)
[2017-09-13] MEDS: FOLIC ACID 1 MG TAB PO (08:32)
[2017-09-13] MEDS: CALCITRIOL 0.25 MCG CAP PO ×4 (08:32→22:32)
[2017-09-13] MEDS: CLINDAMYCIN 1% 30 ML BTL TOP ×2 (08:33→21:45)
[2017-09-13] MEDS: CALCIUM CARBONATE 750 MG CHEW TAB PO ×4 (08:33→21:44)
[2017-09-13 10:26] LABS: ADD MAN DIFF? NO
[2017-09-13 10:46] LABS: WHITE BLOOD COUNT 3.6 10^3/ul (4.8-10.8)
[2017-09-13 10:46] LABS: BASOPHILS % 0.6 % (0.0-2.0); EOSINOPHILS # 0.2 10^3/ul (0.0-0.5); EOSINOPHILS % 6.6 % (0.0-7.0); HEMATOCRIT 27.2 % (37.0-47.0); HEMOGLOBIN 8.5 g/dl (12.0-16.0); LYMPHOCYTES % 27.6 % (15.0-51.0); MEAN CORPUSCULAR HEMOGLOBIN 33.9 pg (29.0-33.0); MEAN CORPUSCULAR HGB CONC 31.3 g/dl (32.0-37.0); MEAN CORPUSCULAR VOLUME 108.4 fl (82.0-101.0); MEAN PLATELET VOLUME 9.9 fl (7.4-10.4); MONOCYTE # 0.4 10^3/ul (0.3-0.9); MONOCYTES % 10.5 % (0.0-11.0); NEUTROPHILS % 54.4 % (39.0-77.0); PLATELET COUNT 181 10^3/UL (140-415); RED BLOOD COUNT 2.51 10^6/ul (4.20-5.40); RED CELL DISTRIBUTION WIDTH 16.1 % (11.5-14.5)
[2017-09-13 10:56] LABS: ANION GAP 20 (8-16); BLOOD UREA NITROGEN 40 mg/dl (7-20); CALCIUM 7.2 mg/dl (8.4-10.2); CARBON DIOXIDE 27 mmol/L (21-31); CHLORIDE 105 mmol/L (97-110); CREATININE 6.11 mg/dl (0.44-1.00); GLUCOSE 82 mg/dl (70-220); POTASSIUM 5.1 mmol/L (3.5-5.1); SODIUM 147 mmol/L (135-144)
[2017-09-13] MEDS: ERGOCALCIFEROL (8000 UNITS/ML PO SYG) PO (21:44)
[2017-09-14] MEDS: morphine 2 MG INJ IV ×5 (05:53→23:03)
[2017-09-14] MEDS: DIPHENHYDRAMINE 50 MG INJ IV ×4 (05:53→23:02)
[2017-09-14] MEDS: SEVELAMER 400 MG TAB PO ×4 (08:50→22:08)
[2017-09-14 08:56] LABS: ANION GAP 17 (8-16); BLOOD UREA NITROGEN 26 mg/dl (7-20); CALCIUM 7.1 mg/dl (8.4-10.2); CARBON DIOXIDE 29 mmol/L (21-31); CHLORIDE 102 mmol/L (97-110); CREATININE 4.16 mg/dl (0.44-1.00); GLUCOSE 76 mg/dl (70-220); POTASSIUM 5.1 mmol/L (3.5-5.1); SODIUM 143 mmol/L (135-144)
[2017-09-14] MEDS: CLINDAMYCIN 1% 30 ML BTL TOP ×2 (09:04→22:08)
[2017-09-14] MEDS: FOLIC ACID 1 MG TAB PO (09:04)
[2017-09-14] MEDS: CALCITRIOL 0.25 MCG CAP PO ×5 (09:04→21:00)
[2017-09-14] MEDS: DOCUSATE SODIUM 100 MG CAP PO ×2 (09:04→22:11)
[2017-09-14] MEDS: CALCIUM CARBONATE 750 MG CHEW TAB PO ×4 (09:05→22:07)
[2017-09-14] MEDS: EPOETIN 3000 UNITS/1 ML INJ (ESRD) SC (17:59)
[2017-09-14] MEDS: CALCITRIOL 0.5 MCG PO (22:07)
[2017-09-15] MEDS: DIPHENHYDRAMINE 50 MG INJ IV ×3 (05:00→17:50)
[2017-09-15] MEDS: morphine 2 MG INJ IV ×2 (05:00→17:38)
[2017-09-15 07:13] LABS: ADD MAN DIFF? NO
[2017-09-15 07:15] LABS: BASOPHILS % 0.6 % (0.0-2.0); EOSINOPHILS # 0.3 10^3/ul (0.0-0.5); EOSINOPHILS % 6.5 % (0.0-7.0); HEMATOCRIT 26.1 % (37.0-47.0); HEMOGLOBIN 8.1 g/dl (12.0-16.0); LYMPHOCYTES # 1.3 10^3/ul (0.8-2.9); LYMPHOCYTES % 26.7 % (15.0-51.0); MEAN CORPUSCULAR HEMOGLOBIN 33.2 pg (29.0-33.0); MEAN PLATELET VOLUME 10.1 fl (7.4-10.4); MONOCYTE # 0.5 10^3/ul (0.3-0.9); MONOCYTES % 9.7 % (0.0-11.0); NEUTROPHIL # 2.7 10^3/ul (1.6-7.5); NEUTROPHILS % 56.3 % (39.0-77.0); PLATELET COUNT 153 10^3/UL (140-415); RED BLOOD COUNT 2.44 10^6/ul (4.20-5.40); RED CELL DISTRIBUTION WIDTH 15.5 % (11.5-14.5)
[2017-09-15 07:15] LABS: WHITE BLOOD COUNT 4.8 10^3/ul (4.8-10.8)
[2017-09-15 07:50] LABS: ANION GAP 17 (8-16); BLOOD UREA NITROGEN 44 mg/dl (7-20); CARBON DIOXIDE 26 mmol/L (21-31); CHLORIDE 104 mmol/L (97-110); CREATININE 6.45 mg/dl (0.44-1.00); GLUCOSE 93 mg/dl (70-220); POTASSIUM 5.5 mmol/L (3.5-5.1); SODIUM 141 mmol/L (135-144)
[2017-09-15] MEDS: CALCIUM CARBONATE 750 MG CHEW TAB PO ×4 (09:09→20:20)
[2017-09-15] MEDS: CALCITRIOL 0.5 MCG PO ×4 (09:10→20:24)
[2017-09-15] MEDS: SEVELAMER 400 MG TAB PO ×2 (09:10→18:37)
[2017-09-15] MEDS: DOCUSATE SODIUM 100 MG CAP PO ×2 (09:10→20:19)
[2017-09-15] MEDS: FOLIC ACID 1 MG TAB PO (09:10)
[2017-09-15] MEDS: CLINDAMYCIN 1% 30 ML BTL TOP ×2 (09:16→20:20)
[2017-09-15] MEDS: HYDROCODONE/APAP (10/325) TAB PO (11:32)
[2017-09-16] MEDS: DIPHENHYDRAMINE 50 MG INJ IV ×4 (00:10→17:36)
[2017-09-16] MEDS: morphine 2 MG INJ IV ×4 (00:10→17:40)
[2017-09-16 06:24] LABS: ADD MAN DIFF? NO
[2017-09-16 06:29] LABS: WHITE BLOOD COUNT 3.7 10^3/ul (4.8-10.8)
[2017-09-16 06:29] LABS: BASOPHILS % 0.8 % (0.0-2.0); EOSINOPHILS # 0.3 10^3/ul (0.0-0.5); EOSINOPHILS % 8.1 % (0.0-7.0); HEMATOCRIT 28.4 % (37.0-47.0); HEMOGLOBIN 9.2 g/dl (12.0-16.0); LYMPHOCYTES # 0.9 10^3/ul (0.8-2.9); LYMPHOCYTES % 23.9 % (15.0-51.0); MEAN CORPUSCULAR HEMOGLOBIN 33.9 pg (29.0-33.0); MEAN CORPUSCULAR HGB CONC 32.4 g/dl (32.0-37.0); MEAN CORPUSCULAR VOLUME 104.8 fl (82.0-101.0); MEAN PLATELET VOLUME 9.9 fl (7.4-10.4); MONOCYTE # 0.3 10^3/ul (0.3-0.9); MONOCYTES % 8.1 % (0.0-11.0); NEUTROPHIL # 2.2 10^3/ul (1.6-7.5); NEUTROPHILS % 58.8 % (39.0-77.0); PLATELET COUNT 173 10^3/UL (140-415); RED BLOOD COUNT 2.71 10^6/ul (4.20-5.40); RED CELL DISTRIBUTION WIDTH 15.4 % (11.5-14.5)
[2017-09-16 06:31] LABS: HEMOGLOBIN 8.9 g/dl (12.0-16.0)
[2017-09-16 06:31] LABS: HEMATOCRIT 27.8 % (37.0-47.0)
[2017-09-16 06:59] LABS: ANION GAP 19 (8-16); BLOOD UREA NITROGEN 19 mg/dl (7-20); CALCIUM 7.6 mg/dl (8.4-10.2); CARBON DIOXIDE 30 mmol/L (21-31); CHLORIDE 99 mmol/L (97-110); CREATININE 3.09 mg/dl (0.44-1.00); GLUCOSE 86 mg/dl (70-220); SODIUM 144 mmol/L (135-144)
[2017-09-16] MEDS: SEVELAMER 400 MG TAB PO ×3 (08:15→17:36)
[2017-09-16] MEDS: CALCIUM CARBONATE 750 MG CHEW TAB PO ×2 (08:45→12:02)
[2017-09-16] MEDS: CALCITRIOL 0.5 MCG PO ×3 (09:00→17:36)
[2017-09-16] MEDS: DOCUSATE SODIUM 100 MG CAP PO ×2 (09:00→12:02)
[2017-09-16] MEDS: CLINDAMYCIN 1% 30 ML BTL TOP (09:00)
[2017-09-16] MEDS: FOLIC ACID 1 MG TAB PO ×2 (09:00→12:02)
[2017-09-16] MEDS: EPOETIN 4000 UNITS/1 ML INJ (ESRD) SC (17:39)
== END 2017-09-16 18:45 | disposition home or self-care (01) | DRG 625 ==
LOC: MS3 16:14 → PP2 08-18 03:44 → ICU 08-20 03:52 → TEL 09-07 11:00 → FTE 07:26 → MS2 09-15 17:00
PROC: 0GBP0ZZ Excision of Left Inferior Parathyroid Gland, Open Approach (ICD-10-PCS; principal; 2017-08-18 14:30)
PROC: 0GBL0ZZ Excision of Right Superior Parathyroid Gland, Open Approach (ICD-10-PCS; 2017-08-18 14:30)
PROC: 0GBN0ZZ Excision of Right Inferior Parathyroid Gland, Open Approach (ICD-10-PCS; 2017-08-18 14:30)
PROC: 5A1D70Z Performance of Urinary Filtration, Intermittent, Less than 6 Hours Per Day (ICD-10-PCS; 2017-08-18 14:44)
PROC: 02HV33Z Insertion of Infusion Device into Superior Vena Cava, Percutaneous Approach (ICD-10-PCS; 2017-08-18 14:44)
DX: E21.2 Other hyperparathyroidism (principal); N18.6 End stage renal disease; I12.0 Hypertensive chronic kidney disease with stage 5 chronic kidney disease or end stage renal disease; I95.89 Other hypotension; E87.5 Hyperkalemia; Z99.2 Dependence on renal dialysis; R13.10 Dysphagia, unspecified; N25.0 Renal osteodystrophy; D63.1 Anemia in chronic kidney disease; M62.838 Other muscle spasm; E89.2 Postprocedural hypoparathyroidism; R20.2 Paresthesia of skin; K83.8 Other specified diseases of biliary tract; R10.32 Left lower quadrant pain; M79.602 Pain in left arm; M79.601 Pain in right arm; M79.605 Pain in left leg; M79.604 Pain in right leg; K59.00 Constipation, unspecified
CPT/HCPCS: 36415; 36430; 36569; 70360; 70490; 70491; 71045; 74181; 76536; 76700; 76937; 80048; 80053; 80069; 82310; 82330; 82390; 82533; 82550; 82553; 82607; 82728; 82962; 83540; 83735; 83970; 84100; 84132; 84443; 84484; 84702; 84703; 85014; 85018; 85025; 85610; 85730; 86706; 86850; 86900; 86901; 86920; 87040; 87081; 87340; 88307; 88331; 90686; 90935; 93005; 93971; 96374; 99285-25

== ENCOUNTER 2017-12-19 15:13 | Emergency (ER) | payer OTHER ==
[2017-12-19] MEDS: SOD CHLORIDE 0.9% 250 ML IV (16:16)
[2017-12-19 16:17] LABS: ADD MAN DIFF? NO
[2017-12-19 16:20] LABS: BASOPHILS % 0.4 % (0.0-2.0); EOSINOPHILS % 0.4 % (0.0-7.0); HEMOGLOBIN 11.1 g/dl (12.0-16.0); LYMPHOCYTES # 1.6 10^3/ul (0.8-2.9); LYMPHOCYTES % 20.9 % (15.0-51.0); MEAN CORPUSCULAR HGB CONC 32.6 g/dl (32.0-37.0); MEAN CORPUSCULAR VOLUME 101.2 fl (82.0-101.0); MEAN PLATELET VOLUME 10.5 fl (7.4-10.4); MONOCYTE # 0.5 10^3/ul (0.3-0.9); MONOCYTES % 6.4 % (0.0-11.0); NEUTROPHIL # 5.5 10^3/ul (1.6-7.5); NEUTROPHILS % 71.6 % (39.0-77.0); PLATELET COUNT 196 10^3/UL (140-415); RED BLOOD COUNT 3.36 10^6/ul (4.20-5.40); RED CELL DISTRIBUTION WIDTH 15.8 % (11.5-14.5)
[2017-12-19 16:20] LABS: WHITE BLOOD COUNT 7.7 10^3/ul (4.8-10.8)
[2017-12-19 16:41] LABS: ALANINE AMINOTRANSFERASE 20 IU/L (13-69); ALBUMIN 4.8 g/dl (3.3-4.9); ALBUMIN/GLOBULIN RATIO 1.54; ALKALINE PHOSPHATASE 231 IU/L (42-121); ANION GAP 25 (8-16); ASPARTATE AMINO TRANSFERASE 25 IU/L (15-46); BILIRUBIN,INDIRECT 0.2 mg/dl (0-1.1); BILIRUBIN,TOTAL 0.2 mg/dl (0.2-1.3); BLOOD UREA NITROGEN 30 mg/dl (7-20); CALCIUM 8.3 mg/dl (8.4-10.2); CARBON DIOXIDE 27 mmol/L (21-31); CHLORIDE 97 mmol/L (97-110); CREATININE 7.49 mg/dl (0.44-1.00); GLUCOSE 118 mg/dl (70-220); LIPASE 46 U/L (23-300); POTASSIUM 4.4 mmol/L (3.5-5.1); SODIUM 145 mmol/L (135-144); TOTAL PROTEIN 7.9 g/dl (6.1-8.1)
[2017-12-19 16:53] LABS: B-TYPE NATRIURETIC PEPTIDE 11400 PG/ML (0-125); TROPONIN-I < 0.010 ng/ml (0.000-0.120)
== END 2017-12-19 17:44 | disposition home or self-care (01) ==
LOC: E/R 15:13
DX: I95.9 Hypotension, unspecified (principal); R40.2252 Coma scale, best verbal response, oriented, at arrival to emergency department; N18.6 End stage renal disease; N25.81 Secondary hyperparathyroidism of renal origin; I12.0 Hypertensive chronic kidney disease with stage 5 chronic kidney disease or end stage renal disease; R40.2142 Coma scale, eyes open, spontaneous, at arrival to emergency department; R40.2362 Coma scale, best motor response, obeys commands, at arrival to emergency department; Z99.2 Dependence on renal dialysis
CPT/HCPCS: 36415; 71045; 80053; 83690; 83880; 84484; 85025; 93005; 99285-25

== ENCOUNTER 2018-06-23 10:33 | Emergency (ER) | payer OTHER ==
[2018-06-23 12:53] LABS: ADD MAN DIFF? NO
[2018-06-23 12:55] LABS: BASOPHILS % 0.6 % (0.0-2.0); EOSINOPHILS # 0.1 10^3/ul (0.0-0.5); EOSINOPHILS % 1.8 % (0.0-7.0); HEMATOCRIT 33.7 % (37.0-47.0); HEMOGLOBIN 10.9 g/dl (12.0-16.0); LYMPHOCYTES # 1.5 10^3/ul (0.8-2.9); LYMPHOCYTES % 23.4 % (15.0-51.0); MEAN CORPUSCULAR HEMOGLOBIN 33.2 pg (29.0-33.0); MEAN CORPUSCULAR HGB CONC 32.3 g/dl (32.0-37.0); MEAN CORPUSCULAR VOLUME 102.7 fl (82.0-101.0); MEAN PLATELET VOLUME 10.5 fl (7.4-10.4); MONOCYTE # 0.4 10^3/ul (0.3-0.9); MONOCYTES % 6.7 % (0.0-11.0); NEUTROPHIL # 4.4 10^3/ul (1.6-7.5); NEUTROPHILS % 67.3 % (39.0-77.0); PLATELET COUNT 216 10^3/UL (140-415); RED BLOOD COUNT 3.28 10^6/ul (4.20-5.40)
[2018-06-23 12:55] LABS: WHITE BLOOD COUNT 6.5 10^3/ul (4.8-10.8)
[2018-06-23 13:01] LABS: ALANINE AMINOTRANSFERASE 15 IU/L (13-69); ALBUMIN 4.7 g/dl (3.3-4.9); ALBUMIN/GLOBULIN RATIO 1.46; ALKALINE PHOSPHATASE 77 IU/L (42-121); ANION GAP 18 (5-13); ASPARTATE AMINO TRANSFERASE 15 IU/L (15-46); BILIRUBIN,INDIRECT 0.1 mg/dl (0-1.1); BILIRUBIN,TOTAL 0.1 mg/dl (0.2-1.3); BLOOD UREA NITROGEN 19 mg/dl (7-20); CALCIUM 10.5 mg/dl (8.4-10.2); CARBON DIOXIDE 25 mmol/L (21-31); CHLORIDE 96 mmol/L (97-110); CREATININE 7.11 mg/dl (0.44-1.00); Estimated GFR 7 mL/min (>60); GLUCOSE 79 mg/dl (70-220); LIPASE 49 U/L (23-300); POTASSIUM 3.8 mmol/L (3.5-5.1); SODIUM 139 mmol/L (135-144); TOTAL PROTEIN 7.9 g/dl (6.1-8.1)
[2018-06-23 13:12] LABS: TROPONIN-I < 0.012 ng/ml (0.000-0.120)
[2018-06-23] MEDS: BELLADONNA/PHENOBARBITAL TAB PO (13:46)
[2018-06-23] MEDS: OXYCODONE/ACETAMINOPHEN (5/325) TAB PO (13:47)
[2018-06-23] MEDS: FAMOTIDINE 20 MG TAB PO (13:47)
[2018-06-23] MEDS: LIDOCAINE/MYLANTA 40 ML BTL PO (13:48)
[2018-06-23] MEDS: KETOROLAC 15 MG INJ IV (14:01)
== END 2018-06-23 14:40 | disposition home or self-care (01) ==
LOC: E/R 10:33
DX: N18.6 End stage renal disease (principal); G44.209 Tension-type headache, unspecified, not intractable; I12.0 Hypertensive chronic kidney disease with stage 5 chronic kidney disease or end stage renal disease; Z99.2 Dependence on renal dialysis
CPT/HCPCS: 36415; 70450; 80053; 83690; 84484; 85025; 93005; 96374; 99285-25

== ENCOUNTER 2018-07-22 20:09 | Inpatient (IN) | payer OTHER ==
[2018-07-22] MEDS: SOD CHLORIDE 0.9% 500 ML IV (21:51)
[2018-07-22 22:26] LABS: ADD MAN DIFF? NO
[2018-07-22 22:27] LABS: WHITE BLOOD COUNT 6.7 10^3/ul (4.8-10.8)
[2018-07-22 22:28] LABS: BASOPHILS % 0.6 % (0.0-2.0); EOSINOPHILS # 0.1 10^3/ul (0.0-0.5); EOSINOPHILS % 1.5 % (0.0-7.0); HEMATOCRIT 37.2 % (37.0-47.0); HEMOGLOBIN 12.4 g/dl (12.0-16.0); LYMPHOCYTES # 1.6 10^3/ul (0.8-2.9); LYMPHOCYTES % 23.9 % (15.0-51.0); MEAN CORPUSCULAR HEMOGLOBIN 33.9 pg (29.0-33.0); MEAN CORPUSCULAR HGB CONC 33.3 g/dl (32.0-37.0); MEAN CORPUSCULAR VOLUME 101.6 fl (82.0-101.0); MEAN PLATELET VOLUME 11.1 fl (7.4-10.4); MONOCYTE # 0.5 10^3/ul (0.3-0.9); MONOCYTES % 7.7 % (0.0-11.0); NEUTROPHIL # 4.4 10^3/ul (1.6-7.5); PLATELET COUNT 183 10^3/UL (140-415); RED BLOOD COUNT 3.66 10^6/ul (4.20-5.40); RED CELL DISTRIBUTION WIDTH 14.2 % (11.5-14.5)
[2018-07-22 22:49] LABS: ALANINE AMINOTRANSFERASE 12 IU/L (13-69); ALBUMIN 5.4 g/dl (3.3-4.9); ALBUMIN/GLOBULIN RATIO 1.42; ALKALINE PHOSPHATASE 76 IU/L (42-121); ANION GAP 28 (5-13); ASPARTATE AMINO TRANSFERASE 16 IU/L (15-46); BLOOD UREA NITROGEN 75 mg/dl (7-20); CALCIUM 12.3 mg/dl (8.4-10.2); CARBON DIOXIDE 23 mmol/L (21-31); CHLORIDE 88 mmol/L (97-110); CREATININE 11.58 mg/dl (0.44-1.00); Estimated GFR 4 mL/min (>60); GLUCOSE 106 mg/dl (70-220); LIPASE 79 U/L (23-300); POTASSIUM 5.1 mmol/L (3.5-5.1); SODIUM 139 mmol/L (135-144); TOTAL PROTEIN 9.2 g/dl (6.1-8.1)
[2018-07-22] MEDS: ONDANSETRON 4 MG INJ IV (22:54)
[2018-07-22] MEDS: PIPER-TAZO 3.375 GM IV (PMX) 100 ML IVPB (22:54)
[2018-07-22] MEDS: DIPHENHYDRAMINE 50 MG INJ IV (23:21)
[2018-07-23] MEDS ORDERED: ZOLPIDEM 5 MG TAB PO (02:00)
[2018-07-23] MEDS ORDERED: DIPHENHYDRAMINE 25 MG CAP PO (02:00)
[2018-07-23] MEDS ORDERED: ACETAMINOPHEN 325 MG TAB PO (02:00)
[2018-07-23] MEDS: DIPHENHYDRAMINE 50 MG INJ IV ×4 (05:38→18:37)
[2018-07-23] MEDS: morphine 2 MG INJ IV ×4 (05:39→20:34)
[2018-07-23] MEDS: LINEZOLID 600 MG/D5W (PMX) 300 ML IVPB ×2 (08:33→20:34)
[2018-07-23] MEDS: CALCIUM CARBONATE 500 MG CHEW TAB PO (08:33)
[2018-07-23] MEDS: SEVELAMER CARBONATE 800 MG TABLET PO ×3 (08:34→18:37)
[2018-07-23] MEDS ORDERED: HEPARIN 1000 UNITS/ML 10 ML INJ CATHETER (14:30)
[2018-07-23 14:40] LABS: ANION GAP 20 (5-13); BLOOD UREA NITROGEN 83 mg/dl (7-20); CARBON DIOXIDE 24 mmol/L (21-31); CHLORIDE 94 mmol/L (97-110); CREATININE 12.51 mg/dl (0.44-1.00); Estimated GFR 3 mL/min (>60); GLUCOSE 110 mg/dl (70-220); POTASSIUM 5.1 mmol/L (3.5-5.1); SODIUM 138 mmol/L (135-144)
[2018-07-23 15:58] LABS: HEPATITIS B SURFACE ANTIGEN NEGATIVE (NEGATIVE)
[2018-07-23] MEDS: HEPARIN 1000 UNITS/ML 10 ML INJ CATHETER (19:35)
[2018-07-24] MEDS: DIPHENHYDRAMINE 50 MG INJ IV ×4 (00:06→19:06)
[2018-07-24] MEDS: PIPER-TAZO 2.25 GM (PMX) 50 ML IVPB ×4 (00:06→22:59)
[2018-07-24] MEDS: morphine 2 MG INJ IV ×5 (01:17→23:01)
[2018-07-24 06:40] LABS: ADD MAN DIFF? NO
[2018-07-24 06:47] LABS: WHITE BLOOD COUNT 4.6 10^3/ul (4.8-10.8)
[2018-07-24 06:47] LABS: BASOPHIL # 0.1 10^3/ul (0.0-0.1); BASOPHILS % 1.1 % (0.0-2.0); EOSINOPHILS # 0.2 10^3/ul (0.0-0.5); EOSINOPHILS % 5.2 % (0.0-7.0); HEMOGLOBIN 13.5 g/dl (12.0-16.0); LYMPHOCYTES # 1.3 10^3/ul (0.8-2.9); LYMPHOCYTES % 28.1 % (15.0-51.0); MEAN CORPUSCULAR HEMOGLOBIN 33.9 pg (29.0-33.0); MEAN CORPUSCULAR HGB CONC 32.9 g/dl (32.0-37.0); MEAN PLATELET VOLUME 11.4 fl (7.4-10.4); MONOCYTE # 0.4 10^3/ul (0.3-0.9); MONOCYTES % 8.9 % (0.0-11.0); NEUTROPHIL # 2.6 10^3/ul (1.6-7.5); NEUTROPHILS % 56.5 % (39.0-77.0); PLATELET COUNT 181 10^3/UL (140-415); RED BLOOD COUNT 3.98 10^6/ul (4.20-5.40); RED CELL DISTRIBUTION WIDTH 14.1 % (11.5-14.5)
[2018-07-24 07:22] LABS: ANION GAP 16 (5-13); BLOOD UREA NITROGEN 35 mg/dl (7-20); CALCIUM 11.2 mg/dl (8.4-10.2); CARBON DIOXIDE 31 mmol/L (21-31); CHLORIDE 93 mmol/L (97-110); Estimated GFR 6 mL/min (>60); GLUCOSE 89 mg/dl (70-220); POTASSIUM 5.1 mmol/L (3.5-5.1); SODIUM 140 mmol/L (135-144)
[2018-07-24] MEDS: SEVELAMER CARBONATE 800 MG TABLET PO ×3 (08:00→17:47)
[2018-07-24] MEDS: LINEZOLID 600 MG/D5W (PMX) 300 ML IVPB ×3 (09:00→21:32)
[2018-07-24] MEDS ORDERED: MIDAZOLAM 1 MG/ML 2 ML INJ (09:11)
[2018-07-24] MEDS ORDERED: FENTAnyl 50 MCG/ML VIAL (09:11)
[2018-07-24] MEDS ORDERED: HEPARIN 1000 UNITS/ML 10 ML INJ (09:36)
[2018-07-24] MEDS ORDERED: LIDOCAINE 1% (MDV) 20 ML INJ (09:36)
[2018-07-24] MEDS ORDERED: IODIXANOL LOCM 100 ML BTL (09:36)
[2018-07-24] MEDS ORDERED: HEPARIN 1000 UNITS/NS (A-LINE) 1,000 ML (09:36)
[2018-07-24] MEDS: ONDANSETRON 4 MG INJ IV (13:33)
[2018-07-25] MEDS: DIPHENHYDRAMINE 50 MG INJ IV ×4 (01:19→19:36)
[2018-07-25] MEDS: morphine 2 MG INJ IV ×5 (03:52→23:20)
[2018-07-25 05:44] LABS: ADD MAN DIFF? NO
[2018-07-25 05:59] LABS: WHITE BLOOD COUNT 4.9 10^3/ul (4.8-10.8)
[2018-07-25 05:59] LABS: BASOPHILS % 0.8 % (0.0-2.0); EOSINOPHILS # 0.3 10^3/ul (0.0-0.5); EOSINOPHILS % 5.8 % (0.0-7.0); HEMATOCRIT 35.8 % (37.0-47.0); HEMOGLOBIN 11.7 g/dl (12.0-16.0); LYMPHOCYTES # 1.3 10^3/ul (0.8-2.9); LYMPHOCYTES % 26.7 % (15.0-51.0); MEAN CORPUSCULAR HEMOGLOBIN 33.5 pg (29.0-33.0); MEAN CORPUSCULAR HGB CONC 32.7 g/dl (32.0-37.0); MEAN CORPUSCULAR VOLUME 102.6 fl (82.0-101.0); MEAN PLATELET VOLUME 11.6 fl (7.4-10.4); MONOCYTE # 0.5 10^3/ul (0.3-0.9); MONOCYTES % 9.5 % (0.0-11.0); NEUTROPHIL # 2.8 10^3/ul (1.6-7.5); PLATELET COUNT 149 10^3/UL (140-415); RED BLOOD COUNT 3.49 10^6/ul (4.20-5.40)
[2018-07-25] MEDS: PIPER-TAZO 2.25 GM (PMX) 50 ML IVPB ×3 (06:06→23:19)
[2018-07-25 06:56] LABS: FREE T4 (FREE THYROXINE) 0.97 ng/dl (0.79-2.35)
[2018-07-25 06:58] LABS: ANION GAP 18 (5-13); BLOOD UREA NITROGEN 60 mg/dl (7-20); CALCIUM 10.1 mg/dl (8.4-10.2); CARBON DIOXIDE 29 mmol/L (21-31); CHLORIDE 93 mmol/L (97-110); CREATININE 10.65 mg/dl (0.44-1.00); Estimated GFR 4 mL/min (>60); GLUCOSE 86 mg/dl (70-220); POTASSIUM 5.3 mmol/L (3.5-5.1); SODIUM 140 mmol/L (135-144)
[2018-07-25 07:10] LABS: THYROID STIMULATING HORMONE 0.954 MIU/L (0.465-4.680)
[2018-07-25] MEDS: SEVELAMER CARBONATE 800 MG TABLET PO ×3 (07:44→18:10)
[2018-07-25] MEDS: LINEZOLID 600 MG/D5W (PMX) 300 ML IVPB (09:05)
[2018-07-25 18:47] LABS: PTH CALCIUM 10.4 mg/dL (8.6-10.2)
[2018-07-25] MEDS: ALBUMIN HUMAN 25% 100 ML IV ×2 (20:19→21:47)
[2018-07-25] MEDS: CALCIUM CARBONATE 1.25 GM TAB PO (23:20)
[2018-07-25] MEDS: CALCITRIOL 0.25 MCG CAP PO (23:20)
[2018-07-26] MEDS: HEPARIN 1000 UNITS/ML 10 ML INJ CATHETER (00:01)
[2018-07-26] MEDS: LINEZOLID 600 MG/D5W (PMX) 300 ML IVPB ×3 (00:07→20:53)
[2018-07-26] MEDS: morphine 2 MG INJ IV ×5 (03:07→22:42)
[2018-07-26] MEDS: DIPHENHYDRAMINE 50 MG INJ IV ×4 (03:07→21:33)
[2018-07-26] MEDS: PIPER-TAZO 2.25 GM (PMX) 50 ML IVPB ×3 (05:49→22:10)
[2018-07-26 05:57] LABS: ALANINE AMINOTRANSFERASE 19 IU/L (13-69); ALBUMIN/GLOBULIN RATIO 1.81; ALKALINE PHOSPHATASE 57 IU/L (42-121); ANION GAP 16 (5-13); ASPARTATE AMINO TRANSFERASE 29 IU/L (15-46); BILIRUBIN,INDIRECT 0.2 mg/dl (0-1.1); BILIRUBIN,TOTAL 0.2 mg/dl (0.2-1.3); BLOOD UREA NITROGEN 29 mg/dl (7-20); CALCIUM 10.6 mg/dl (8.4-10.2); CARBON DIOXIDE 30 mmol/L (21-31); CHLORIDE 95 mmol/L (97-110); CREATININE 6.54 mg/dl (0.44-1.00); Estimated GFR 7 mL/min (>60); GLUCOSE 122 mg/dl (70-220); POTASSIUM 4.8 mmol/L (3.5-5.1); SODIUM 141 mmol/L (135-144); TOTAL PROTEIN 9.3 g/dl (6.1-8.1)
[2018-07-26 06:05] LABS: PHOSPHORUS 7.2 mg/dl (2.5-4.9)
[2018-07-26 06:05] LABS: MAGNESIUM 2.8 mg/dl (1.7-2.5)
[2018-07-26 07:51] LABS: PTH INTACT 14 pg/mL (14-64)
[2018-07-26] MEDS: SEVELAMER CARBONATE 800 MG TABLET PO ×3 (08:00→18:10)
[2018-07-26] MEDS: CALCIUM CARBONATE 1.25 GM TAB PO (08:43)
[2018-07-26] MEDS: CALCIUM CARBONATE 500 MG CHEW TAB PO ×2 (18:38→20:53)
[2018-07-26] MEDS: CALCITRIOL 0.25 MCG CAP PO (21:36)
[2018-07-27] MEDS: morphine 2 MG INJ IV ×4 (02:50→21:24)
[2018-07-27] MEDS: DIPHENHYDRAMINE 50 MG INJ IV ×5 (02:50→23:29)
[2018-07-27] MEDS: PIPER-TAZO 2.25 GM (PMX) 50 ML IVPB ×3 (05:13→21:04)
[2018-07-27 06:12] LABS: ADD MAN DIFF? NO
[2018-07-27 06:22] LABS: WHITE BLOOD COUNT 4.2 10^3/ul (4.8-10.8)
[2018-07-27 06:22] LABS: EOSINOPHILS # 0.3 10^3/ul (0.0-0.5); EOSINOPHILS % 7.4 % (0.0-7.0); HEMATOCRIT 33.3 % (37.0-47.0); HEMOGLOBIN 10.9 g/dl (12.0-16.0); LYMPHOCYTES # 1.1 10^3/ul (0.8-2.9); LYMPHOCYTES % 27.1 % (15.0-51.0); MEAN CORPUSCULAR HEMOGLOBIN 33.3 pg (29.0-33.0); MEAN CORPUSCULAR HGB CONC 32.7 g/dl (32.0-37.0); MEAN CORPUSCULAR VOLUME 101.8 fl (82.0-101.0); MEAN PLATELET VOLUME 11.6 fl (7.4-10.4); MONOCYTE # 0.4 10^3/ul (0.3-0.9); MONOCYTES % 8.8 % (0.0-11.0); NEUTROPHIL # 2.3 10^3/ul (1.6-7.5); NEUTROPHILS % 55.5 % (39.0-77.0); PLATELET COUNT 113 10^3/UL (140-415); RED BLOOD COUNT 3.27 10^6/ul (4.20-5.40); RED CELL DISTRIBUTION WIDTH 13.3 % (11.5-14.5)
[2018-07-27 07:07] LABS: ANION GAP 17 (5-13); BLOOD UREA NITROGEN 50 mg/dl (7-20); CALCIUM 10.6 mg/dl (8.4-10.2); CARBON DIOXIDE 26 mmol/L (21-31); CHLORIDE 97 mmol/L (97-110); CREATININE 9.41 mg/dl (0.44-1.00); Estimated GFR 5 mL/min (>60); GLUCOSE 79 mg/dl (70-220); SODIUM 140 mmol/L (135-144)
[2018-07-27 07:14] LABS: PHOSPHORUS 8.7 mg/dl (2.5-4.9)
[2018-07-27 07:41] LABS: IONIZED CALCIUM 1.3 mmol/L (1.1-1.4)
[2018-07-27] MEDS: SEVELAMER CARBONATE 800 MG TABLET PO ×3 (08:45→17:18)
[2018-07-27] MEDS: LINEZOLID 600 MG/D5W (PMX) 300 ML IVPB (08:52)
[2018-07-27] MEDS: ONDANSETRON 4 MG INJ IV (10:59)
[2018-07-27] MEDS: NAPROXEN 500 MG TAB PO (11:12)
[2018-07-27] MEDS: CALCIUM CARBONATE 500 MG CHEW TAB PO ×2 (12:07→19:00)
[2018-07-27] MEDS: HEPARIN 1000 UNITS/ML 10 ML INJ CATHETER (15:11)
[2018-07-27] MEDS: CALCITRIOL 0.25 MCG CAP PO (21:04)
[2018-07-28] MEDS: morphine 2 MG INJ IV ×4 (05:37→23:35)
[2018-07-28] MEDS: DIPHENHYDRAMINE 50 MG INJ IV ×4 (05:37→23:36)
[2018-07-28] MEDS: PIPER-TAZO 2.25 GM (PMX) 50 ML IVPB ×3 (05:40→21:38)
[2018-07-28] MEDS: CALCIUM CARBONATE 500 MG CHEW TAB PO ×3 (08:15→17:31)
[2018-07-28] MEDS: SEVELAMER CARBONATE 800 MG TABLET PO ×3 (08:15→17:31)
[2018-07-28 17:51] LABS: FOLLICLE STIMULATING HORMONE 92.9 mIU/mL; PROLACTIN 68.4 ng/mL
[2018-07-28 18:41] LABS: ESTRADIOL 26 pg/mL
[2018-07-28] MEDS: CALCITRIOL 0.25 MCG CAP PO (21:37)
[2018-07-29] MEDS: morphine 2 MG INJ IV ×4 (06:06→19:55)
[2018-07-29] MEDS: DIPHENHYDRAMINE 50 MG INJ IV ×3 (06:06→18:30)
[2018-07-29] MEDS: CALCIUM CARBONATE 500 MG CHEW TAB PO ×3 (09:29→17:37)
[2018-07-29] MEDS: SEVELAMER CARBONATE 800 MG TABLET PO ×3 (09:29→17:37)
[2018-07-29 15:14] LABS: IONIZED CALCIUM 1.3 mmol/L (1.1-1.4)
[2018-07-29] MEDS: CALCITRIOL 0.25 MCG CAP PO (20:00)
[2018-07-30] MEDS: DIPHENHYDRAMINE 50 MG INJ IV ×4 (00:33→18:24)
[2018-07-30] MEDS: morphine 2 MG INJ IV ×5 (00:38→21:55)
[2018-07-30] MEDS: CALCIUM CARBONATE 500 MG CHEW TAB PO ×3 (08:33→17:31)
[2018-07-30] MEDS: SEVELAMER CARBONATE 800 MG TABLET PO ×3 (08:33→17:29)
[2018-07-30] MEDS: CALCITRIOL 0.25 MCG CAP PO (22:11)
[2018-07-31] MEDS: DIPHENHYDRAMINE 50 MG INJ IV ×4 (00:26→18:26)
[2018-07-31 06:14] LABS: ADD MAN DIFF? NO
[2018-07-31 06:18] LABS: WHITE BLOOD COUNT 4.9 10^3/ul (4.8-10.8)
[2018-07-31 06:18] LABS: ABNORMAL IP MESSAGE 1; BASOPHIL # 0.1 10^3/ul (0.0-0.1); EOSINOPHILS # 0.3 10^3/ul (0.0-0.5); EOSINOPHILS % 6.1 % (0.0-7.0); HEMATOCRIT 30.6 % (37.0-47.0); HEMOGLOBIN 9.9 g/dl (12.0-16.0); LYMPHOCYTES # 1.5 10^3/ul (0.8-2.9); LYMPHOCYTES % 30.3 % (15.0-51.0); MEAN CORPUSCULAR HEMOGLOBIN 32.7 pg (29.0-33.0); MEAN CORPUSCULAR HGB CONC 32.4 g/dl (32.0-37.0); MEAN PLATELET VOLUME 12.4 fl (7.4-10.4); MONOCYTE # 0.4 10^3/ul (0.3-0.9); MONOCYTES % 7.7 % (0.0-11.0); NEUTROPHIL # 2.7 10^3/ul (1.6-7.5); NEUTROPHILS % 54.5 % (39.0-77.0); RED BLOOD COUNT 3.03 10^6/ul (4.20-5.40); RED CELL DISTRIBUTION WIDTH 13.2 % (11.5-14.5)
[2018-07-31 06:41] LABS: ANION GAP 21 (5-13); BLOOD UREA NITROGEN 83 mg/dl (7-20); CALCIUM 9.7 mg/dl (8.4-10.2); CARBON DIOXIDE 17 mmol/L (21-31); CHLORIDE 105 mmol/L (97-110); GLUCOSE 67 mg/dl (70-220); POSITIVE DIFF @See below; POTASSIUM 5.2 mmol/L (3.5-5.1); SODIUM 143 mmol/L (135-144)
[2018-07-31 06:42] LABS: PLATELET COUNT 88 10^3/UL (140-415)
[2018-07-31 06:49] LABS: CREATININE 15.75 mg/dl (0.44-1.00); Estimated GFR 3 mL/min (>60)
[2018-07-31] MEDS: CALCIUM CARBONATE 500 MG CHEW TAB PO ×3 (08:48→18:24)
[2018-07-31] MEDS: SEVELAMER CARBONATE 800 MG TABLET PO ×3 (08:48→17:48)
[2018-07-31] MEDS: HEPARIN 1000 UNITS/ML 10 ML INJ CATHETER (10:45)
[2018-07-31] MEDS: morphine 2 MG INJ IV ×2 (10:53→15:12)
[2018-07-31] MEDS: CALCITRIOL 0.25 MCG CAP PO (20:43)
[2018-08-01] MEDS: DIPHENHYDRAMINE 50 MG INJ IV ×4 (01:36→19:44)
[2018-08-01] MEDS: morphine 2 MG INJ IV ×4 (01:37→19:44)
[2018-08-01 05:11] LABS: ADD MAN DIFF? NO
[2018-08-01 05:14] LABS: ABNORMAL IP MESSAGE 1; BASOPHILS % 0.7 % (0.0-2.0); EOSINOPHILS # 0.2 10^3/ul (0.0-0.5); EOSINOPHILS % 3.8 % (0.0-7.0); HEMATOCRIT 34.1 % (37.0-47.0); LYMPHOCYTES # 1.3 10^3/ul (0.8-2.9); LYMPHOCYTES % 22.8 % (15.0-51.0); MEAN CORPUSCULAR HEMOGLOBIN 32.9 pg (29.0-33.0); MEAN CORPUSCULAR HGB CONC 32.3 g/dl (32.0-37.0); MEAN CORPUSCULAR VOLUME 102.1 fl (82.0-101.0); MEAN PLATELET VOLUME 11.7 fl (7.4-10.4); MONOCYTE # 0.4 10^3/ul (0.3-0.9); MONOCYTES % 6.7 % (0.0-11.0); NEUTROPHIL # 3.6 10^3/ul (1.6-7.5); NEUTROPHILS % 65.6 % (39.0-77.0); PLATELET COUNT 92 10^3/UL (140-415); RED BLOOD COUNT 3.34 10^6/ul (4.20-5.40); RED CELL DISTRIBUTION WIDTH 13.2 % (11.5-14.5)
[2018-08-01 05:14] LABS: WHITE BLOOD COUNT 5.5 10^3/ul (4.8-10.8)
[2018-08-01 05:46] LABS: POSITIVE DIFF @See below
[2018-08-01 06:09] LABS: ANION GAP 19 (5-13); CALCIUM 9.8 mg/dl (8.4-10.2); CARBON DIOXIDE 20 mmol/L (21-31); CHLORIDE 107 mmol/L (97-110); Estimated GFR 4 mL/min (>60); GLUCOSE 85 mg/dl (70-220); POTASSIUM 4.8 mmol/L (3.5-5.1); SODIUM 146 mmol/L (135-144)
[2018-08-01 06:12] LABS: BLOOD UREA NITROGEN 51 mg/dl (7-20); CREATININE 10.23 mg/dl (0.44-1.00)
[2018-08-01 07:57] LABS: IONIZED CALCIUM 1.2 mmol/L (1.1-1.4)
[2018-08-01] MEDS: CALCIUM CARBONATE 500 MG CHEW TAB PO ×3 (08:44→18:34)
[2018-08-01] MEDS: SEVELAMER CARBONATE 800 MG TABLET PO ×3 (08:44→17:43)
[2018-08-01] MEDS: ALBUMIN HUMAN 25% 100 ML IV ×2 (09:46→15:31)
[2018-08-01] MEDS: MIDODRINE 5 MG TAB PO ×2 (09:47→18:34)
[2018-08-01] MEDS: PANTOPRAZOLE (EC) 40 MG TAB PO (13:20)
[2018-08-01] MEDS: HEPARIN 1000 UNITS/ML 10 ML INJ CATHETER (18:25)
[2018-08-01] MEDS ORDERED: MIDODRINE 2.5 MG TAB PO (18:30)
[2018-08-01] MEDS: CALCITRIOL 0.25 MCG CAP PO (21:06)
[2018-08-02] MEDS: DIPHENHYDRAMINE 50 MG INJ IV ×4 (02:02→20:11)
[2018-08-02] MEDS: morphine 2 MG INJ IV ×2 (02:45→18:51)
[2018-08-02 05:38] LABS: ADD MAN DIFF? NO
[2018-08-02 05:42] LABS: WHITE BLOOD COUNT 6.3 10^3/ul (4.8-10.8)
[2018-08-02 05:42] LABS: BASOPHILS % 0.6 % (0.0-2.0); EOSINOPHILS # 0.3 10^3/ul (0.0-0.5); EOSINOPHILS % 5.1 % (0.0-7.0); HEMATOCRIT 37.4 % (37.0-47.0); HEMOGLOBIN 12.2 g/dl (12.0-16.0); LYMPHOCYTES # 1.7 10^3/ul (0.8-2.9); LYMPHOCYTES % 26.6 % (15.0-51.0); MEAN CORPUSCULAR HEMOGLOBIN 33.2 pg (29.0-33.0); MEAN CORPUSCULAR HGB CONC 32.6 g/dl (32.0-37.0); MEAN CORPUSCULAR VOLUME 101.6 fl (82.0-101.0); MONOCYTE # 0.5 10^3/ul (0.3-0.9); MONOCYTES % 8.3 % (0.0-11.0); NEUTROPHIL # 3.7 10^3/ul (1.6-7.5); NEUTROPHILS % 59.1 % (39.0-77.0); PLATELET COUNT 119 10^3/UL (140-415); RED BLOOD COUNT 3.68 10^6/ul (4.20-5.40); RED CELL DISTRIBUTION WIDTH 13.2 % (11.5-14.5)
[2018-08-02] MEDS: PANTOPRAZOLE (EC) 40 MG TAB PO (05:51)
[2018-08-02 06:21] LABS: ANION GAP 22 (5-13); BLOOD UREA NITROGEN 30 mg/dl (7-20); CALCIUM 10.7 mg/dl (8.4-10.2); CARBON DIOXIDE 24 mmol/L (21-31); CHLORIDE 100 mmol/L (97-110); CREATININE 7.63 mg/dl (0.44-1.00); Estimated GFR 6 mL/min (>60); GLUCOSE 83 mg/dl (70-220); POTASSIUM 4.4 mmol/L (3.5-5.1); SODIUM 146 mmol/L (135-144)
[2018-08-02] MEDS ORDERED: HEPARIN 1000 UNITS/ML 10 ML INJ (07:15)
[2018-08-02] MEDS ORDERED: IODIXANOL LOCM 100 ML BTL (07:15)
[2018-08-02] MEDS ORDERED: LIDOCAINE 1% (MDV) 20 ML INJ (07:15)
[2018-08-02] MEDS ORDERED: HEPARIN 1000 UNITS/NS (A-LINE) 1,000 ML (07:15)
[2018-08-02] MEDS ORDERED: MIDAZOLAM 1 MG/ML 2 ML INJ (07:16)
[2018-08-02] MEDS ORDERED: FENTAnyl 50 MCG/ML VIAL (07:16)
[2018-08-02] MEDS ORDERED: CEFAZOLIN 1 GM/50 ML (PMX) 100 ML IVPB (07:39)
[2018-08-02] MEDS ORDERED: ONDANSETRON 4 MG INJ (07:55)
[2018-08-02] MEDS: SEVELAMER CARBONATE 800 MG TABLET PO ×3 (08:37→18:09)
[2018-08-02] MEDS: CALCIUM CARBONATE 500 MG CHEW TAB PO ×3 (08:39→18:09)
[2018-08-02] MEDS: SOD CHLORIDE 0.9% 500 ML IV (11:51)
[2018-08-02] MEDS: MIDODRINE 5 MG TAB PO (12:33)
[2018-08-02] MEDS: ALBUMIN HUMAN 25% 100 ML IV (13:33)
[2018-08-02 18:07] LABS: PROLACTIN 175.3 ng/mL
[2018-08-02] MEDS: CALCITRIOL 0.25 MCG CAP PO (20:12)
[2018-08-03] MEDS: morphine 2 MG INJ IV ×4 (01:25→23:33)
[2018-08-03] MEDS: DIPHENHYDRAMINE 50 MG INJ IV ×4 (02:16→20:20)
[2018-08-03] MEDS: PANTOPRAZOLE (EC) 40 MG TAB PO (05:34)
[2018-08-03] MEDS: SEVELAMER CARBONATE 800 MG TABLET PO ×3 (08:20→18:02)
[2018-08-03] MEDS: CALCIUM CARBONATE 500 MG CHEW TAB PO ×3 (08:20→18:02)
[2018-08-03] MEDS: ALBUMIN HUMAN 25% 100 ML IV (12:22)
[2018-08-03] MEDS: HEPARIN 1000 UNITS/ML 10 ML INJ CATHETER (13:23)
[2018-08-03] MEDS: CALCITRIOL 0.25 MCG CAP PO (20:19)
[2018-08-03] MEDS: BROMOCRIPTINE 2.5 MG TAB PO (20:20)
[2018-08-04 01:29] LABS: ANION GAP 22 (5-13); BLOOD UREA NITROGEN 38 mg/dl (7-20); CALCIUM 10.5 mg/dl (8.4-10.2); CARBON DIOXIDE 22 mmol/L (21-31); CHLORIDE 101 mmol/L (97-110); CREATININE 8.13 mg/dl (0.44-1.00); Estimated GFR 6 mL/min (>60); GLUCOSE 101 mg/dl (70-220); POTASSIUM 4.7 mmol/L (3.5-5.1); SODIUM 145 mmol/L (135-144)
[2018-08-04] MEDS: DIPHENHYDRAMINE 50 MG INJ IV ×3 (02:31→15:15)
[2018-08-04] MEDS: PANTOPRAZOLE (EC) 40 MG TAB PO (06:35)
[2018-08-04 06:49] LABS: ANION GAP 24 (5-13); BLOOD UREA NITROGEN 42 mg/dl (7-20); CALCIUM 10.5 mg/dl (8.4-10.2); CARBON DIOXIDE 22 mmol/L (21-31); CHLORIDE 100 mmol/L (97-110); CREATININE 8.76 mg/dl (0.44-1.00); Estimated GFR 5 mL/min (>60); GLUCOSE 78 mg/dl (70-220); SODIUM 146 mmol/L (135-144)
[2018-08-04] MEDS: CALCIUM CARBONATE 500 MG CHEW TAB PO ×2 (08:00→18:18)
[2018-08-04] MEDS: SEVELAMER CARBONATE 800 MG TABLET PO ×3 (08:54→18:18)
[2018-08-04] MEDS: MIDODRINE 5 MG TAB PO ×3 (11:04→18:18)
[2018-08-04] MEDS: ALBUMIN HUMAN 25% 100 ML IV (11:06)
[2018-08-04] MEDS ORDERED: HYDROCODONE/APAP (5/325) TAB PO (14:00)
[2018-08-04] MEDS: morphine 2 MG INJ IV (14:25)
== END 2018-08-04 18:40 | disposition home or self-care (01) | DRG 252 ==
LOC: 2NE 07-23 00:07 → E/R 20:09
PROC: 02PY33Z Removal of Infusion Device from Great Vessel, Percutaneous Approach (ICD-10-PCS; principal; 2018-07-24 08:54)
PROC: 05733ZZ Dilation of Right Innominate Vein, Percutaneous Approach (ICD-10-PCS; 2018-07-24 08:54)
PROC: 027V3ZZ Dilation of Superior Vena Cava, Percutaneous Approach (ICD-10-PCS; 2018-07-24 08:54)
PROC: 02HV33Z Insertion of Infusion Device into Superior Vena Cava, Percutaneous Approach (ICD-10-PCS; 2018-07-24 08:54)
PROC: B518YZA Fluoroscopy of Superior Vena Cava using Other Contrast, Guidance (ICD-10-PCS; 2018-07-24 08:54)
PROC: 02PY33Z Removal of Infusion Device from Great Vessel, Percutaneous Approach (ICD-10-PCS; 2018-07-24 08:54)
PROC: 057M3ZZ Dilation of Right Internal Jugular Vein, Percutaneous Approach (ICD-10-PCS; 2018-07-24 08:54)
PROC: 05733ZZ Dilation of Right Innominate Vein, Percutaneous Approach (ICD-10-PCS; 2018-07-24 08:54)
PROC: 027V3ZZ Dilation of Superior Vena Cava, Percutaneous Approach (ICD-10-PCS; 2018-07-24 08:54)
PROC: 02HV33Z Insertion of Infusion Device into Superior Vena Cava, Percutaneous Approach (ICD-10-PCS; 2018-07-24 08:54)
PROC: B518YZA Fluoroscopy of Superior Vena Cava using Other Contrast, Guidance (ICD-10-PCS; 2018-07-24 08:54)
PROC: 5A1D70Z Performance of Urinary Filtration, Intermittent, Less than 6 Hours Per Day (ICD-10-PCS; 2018-07-24 08:54)
DX: T82.7XXA Infection and inflammatory reaction due to other cardiac and vascular devices, implants and grafts, initial encounter (principal); N18.6 End stage renal disease; E22.1 Hyperprolactinemia; C95.90 Leukemia, unspecified not having achieved remission; I87.1 Compression of vein; L08.9 Local infection of the skin and subcutaneous tissue, unspecified; D63.1 Anemia in chronic kidney disease; E83.52 Hypercalcemia; E89.2 Postprocedural hypoparathyroidism; E28.39 Other primary ovarian failure; I95.89 Other hypotension; N91.1 Secondary amenorrhea; T82.868A Thrombosis due to vascular prosthetic devices, implants and grafts, initial encounter; Z99.2 Dependence on renal dialysis; Z88.3 Allergy status to other anti-infective agents
CPT/HCPCS: 36415; 37248; 37249; 70450; 70551; 75827; 80048; 80053; 82306; 82330; 82652; 82670; 83001; 83690; 83735; 83970; 84100; 84146; 84439; 84443; 84703; 85025; 87040; 87070; 87081; 87340; 90935; 93923; 93970; 96374; 96375; 99285-25

== ENCOUNTER 2018-08-21 16:30 | Emergency (ER) | payer SELFPAY, OTHER | END 2018-08-21 17:19 | disposition left against medical advice (07) | LOC: E/R 16:30 | DX: Z53.21 Procedure and treatment not carried out due to patient leaving prior to being seen by health care provider (principal) ==

== ENCOUNTER 2018-08-22 03:59 | Inpatient (IN) | payer OTHER ==
[2018-08-22 04:28] LABS: ADD MAN DIFF? NO
[2018-08-22] MEDS: ACETAMINOPHEN 500 MG TAB PO (04:28)
[2018-08-22] MEDS: CEFEPIME 2GM/50 ML (PMX) 50 ML IVPB (04:28)
[2018-08-22 04:30] LABS: WHITE BLOOD COUNT 8.3 10^3/ul (4.8-10.8)
[2018-08-22 04:30] LABS: ABNORMAL IP MESSAGE 1; BASOPHILS % 0.2 % (0.0-2.0); EOSINOPHILS % 0.2 % (0.0-7.0); HEMATOCRIT 29.4 % (37.0-47.0); HEMOGLOBIN 9.2 g/dl (12.0-16.0); LYMPHOCYTES # 0.4 10^3/ul (0.8-2.9); LYMPHOCYTES % 4.7 % (15.0-51.0); MEAN CORPUSCULAR HEMOGLOBIN 32.5 pg (29.0-33.0); MEAN CORPUSCULAR HGB CONC 31.3 g/dl (32.0-37.0); MEAN CORPUSCULAR VOLUME 103.9 fl (82.0-101.0); MEAN PLATELET VOLUME 10.6 fl (7.4-10.4); MONOCYTE # 0.6 10^3/ul (0.3-0.9); MONOCYTES % 7.6 % (0.0-11.0); NEUTROPHIL # 7.2 10^3/ul (1.6-7.5); NEUTROPHILS % 86.9 % (39.0-77.0); PLATELET COUNT 123 10^3/UL (140-415); RED BLOOD COUNT 2.83 10^6/ul (4.20-5.40); RED CELL DISTRIBUTION WIDTH 14.6 % (11.5-14.5)
[2018-08-22 04:39] LABS: POSITIVE DIFF @See below
[2018-08-22] MEDS: ONDANSETRON 4 MG INJ IV ×2 (04:40→12:44)
[2018-08-22] MEDS: HYDROmorphONE 2 MG/ML SYG IV ×2 (04:40→06:35)
[2018-08-22 04:49] LABS: ALANINE AMINOTRANSFERASE 16 IU/L (13-69); ALBUMIN 4.9 g/dl (3.3-4.9); ALBUMIN/GLOBULIN RATIO 1.63; ALKALINE PHOSPHATASE 74 IU/L (42-121); ANION GAP 22 (5-13); ASPARTATE AMINO TRANSFERASE 17 IU/L (15-46); BILIRUBIN,INDIRECT 0.2 mg/dl (0-1.1); BILIRUBIN,TOTAL 0.2 mg/dl (0.2-1.3); BLOOD UREA NITROGEN 52 mg/dl (7-20); CALCIUM 9.7 mg/dl (8.4-10.2); CARBON DIOXIDE 23 mmol/L (21-31); CHLORIDE 97 mmol/L (97-110); CREATININE 9.54 mg/dl (0.44-1.00); Estimated GFR 5 mL/min (>60); GLUCOSE 109 mg/dl (70-220); INR 1.18; POTASSIUM 5.2 mmol/L (3.5-5.1); PROTIME 15.1 Sec (11.9-14.9); PT RATIO 1.2; SODIUM 142 mmol/L (135-144); TOTAL PROTEIN 7.9 g/dl (6.1-8.1)
[2018-08-22 04:50] LABS: PARTIAL THROMBOPLASTIN TIME 37.5 Sec (23.0-35.0)
[2018-08-22] MEDS: AZTREONAM 1 GM/NS (PMX) 50 ML IVPB (04:50)
[2018-08-22 04:59] LABS: TROPONIN-I < 0.012 ng/ml (0.000-0.120)
[2018-08-22] MEDS ORDERED: DIPHENHYDRAMINE 50 MG INJ (04:59)
[2018-08-22] MEDS: DIPHENHYDRAMINE 50 MG INJ IV ×3 (05:05→20:45)
[2018-08-22] MEDS: LEVOFLOXACIN 750MG/D5W (PMX) 150 ML IVPB (05:06)
[2018-08-22] MEDS: HYDROmorphONE 0.5 MG/0.5 ML SYG IV ×4 (09:04→22:46)
[2018-08-22 09:45] LABS: LACTIC ACID 1.3 mmol/L (0.5-2.0)
[2018-08-22] MEDS: MEROPENEM 500MG/50 ML (PMX) 50 ML IVPB (11:10)
[2018-08-22] MEDS: SEVELAMER CARBONATE 800 MG TABLET PO ×2 (12:43→17:21)
[2018-08-22] MEDS: ACETAMINOPHEN 325 MG TAB PO ×2 (12:57→18:45)
[2018-08-22] MEDS: HYDROCODONE/APAP (5/325) TAB PO (16:21)
[2018-08-22] MEDS: MULTIVIT/CA CARB/B CMPLX/FA TAB PO (17:21)
[2018-08-22] MEDS: LIDOCAINE 5% PATCH TD (22:37)
[2018-08-22] MEDS: LINEZOLID 600 MG/D5W (PMX) 300 ML IVPB (22:37)
[2018-08-22] MEDS ORDERED: NAPROXEN 500 MG TAB PO (23:30)
[2018-08-22] MEDS ORDERED: ZOLPIDEM 5 MG TAB PO (23:30)
[2018-08-23] MEDS: ONDANSETRON 4 MG INJ IV (00:17)
[2018-08-23] MEDS: morphine 4 MG/ML VIAL IV ×5 (01:13→20:11)
[2018-08-23] MEDS: ACETAMINOPHEN 325 MG TAB PO (02:53)
[2018-08-23] MEDS: DIPHENHYDRAMINE 50 MG INJ IV ×4 (02:54→21:35)
[2018-08-23] MEDS ORDERED: DIPHENHYDRAMINE 50 MG INJ IV (06:30)
[2018-08-23] MEDS: PANTOPRAZOLE (EC) 40 MG TAB PO (06:54)
[2018-08-23] MEDS: SEVELAMER CARBONATE 800 MG TABLET PO ×3 (07:50→20:46)
[2018-08-23] MEDS: MULTIVIT/CA CARB/B CMPLX/FA TAB PO (08:47)
[2018-08-23] MEDS: MIDODRINE 5 MG TAB PO ×3 (08:47→20:10)
[2018-08-23] MEDS: LIDOCAINE 5% PATCH TD (08:50)
[2018-08-23] MEDS: LINEZOLID 600 MG/D5W (PMX) 300 ML IVPB (09:52)
[2018-08-23] MEDS ORDERED: LIDOCAINE 1% (MDV) 20 ML INJ (11:04)
[2018-08-23] MEDS ORDERED: HEPARIN 1000 UNITS/NS (A-LINE) 1,000 ML (11:04)
[2018-08-23] MEDS ORDERED: HEPARIN 1000 UNITS/ML 10 ML INJ (11:04)
[2018-08-23] MEDS ORDERED: FENTAnyl 50 MCG/ML VIAL (11:05)
[2018-08-23 14:25] LABS: ADD MAN DIFF? NO
[2018-08-23 14:30] LABS: ABNORMAL IP MESSAGE 1; BASOPHILS % 0.4 % (0.0-2.0); EOSINOPHILS # 0.1 10^3/ul (0.0-0.5); EOSINOPHILS % 0.9 % (0.0-7.0); HEMATOCRIT 25.7 % (37.0-47.0); HEMOGLOBIN 8.2 g/dl (12.0-16.0); LYMPHOCYTES # 0.4 10^3/ul (0.8-2.9); LYMPHOCYTES % 7.7 % (15.0-51.0); MEAN CORPUSCULAR HEMOGLOBIN 33.2 pg (29.0-33.0); MEAN CORPUSCULAR HGB CONC 31.9 g/dl (32.0-37.0); MEAN PLATELET VOLUME 11.4 fl (7.4-10.4); MONOCYTE # 0.3 10^3/ul (0.3-0.9); MONOCYTES % 5.6 % (0.0-11.0); NEUTROPHIL # 4.7 10^3/ul (1.6-7.5); RED BLOOD COUNT 2.47 10^6/ul (4.20-5.40); RED CELL DISTRIBUTION WIDTH 14.3 % (11.5-14.5)
[2018-08-23 14:30] LABS: WHITE BLOOD COUNT 5.6 10^3/ul (4.8-10.8)
[2018-08-23 14:39] LABS: PLATELET COUNT 91 10^3/UL (140-415); POSITIVE DIFF @See below
[2018-08-23] MEDS: valACYclovir 500 MG TAB PO (14:40)
[2018-08-23 14:56] LABS: ANION GAP 21 (5-13); BLOOD UREA NITROGEN 75 mg/dl (7-20); CALCIUM 9.5 mg/dl (8.4-10.2); CARBON DIOXIDE 19 mmol/L (21-31); CHLORIDE 96 mmol/L (97-110); CREATININE 12.45 mg/dl (0.44-1.00); Estimated GFR 3 mL/min (>60); GLUCOSE 93 mg/dl (70-220); POTASSIUM 5.8 mmol/L (3.5-5.1); SODIUM 136 mmol/L (135-144)
[2018-08-23 15:40] LABS: HEPATITIS B SURFACE ANTIGEN NEGATIVE (NEGATIVE)
[2018-08-23] MEDS: HEPARIN 1000 UNITS/ML 10 ML INJ CATHETER (19:26)
[2018-08-23] MEDS: DAPTOMYCIN 325 MG in SOD CHLORIDE 0.9% 100 ML IVPB (20:08)
[2018-08-23] MEDS: BROMOCRIPTINE 2.5 MG TAB PO (21:35)
[2018-08-23 22:24] LABS: PHOSPHORUS 5.7 mg/dl (2.5-4.9)
[2018-08-24] MEDS: morphine 4 MG/ML VIAL IV ×4 (01:44→22:24)
[2018-08-24] MEDS: DIPHENHYDRAMINE 50 MG INJ IV ×4 (03:50→22:24)
[2018-08-24 05:21] LABS: ADD MAN DIFF? NO
[2018-08-24 05:31] LABS: WHITE BLOOD COUNT 4.4 10^3/ul (4.8-10.8)
[2018-08-24 05:31] LABS: BASOPHILS % 0.5 % (0.0-2.0); EOSINOPHILS # 0.1 10^3/ul (0.0-0.5); EOSINOPHILS % 2.7 % (0.0-7.0); HEMATOCRIT 26.7 % (37.0-47.0); HEMOGLOBIN 8.5 g/dl (12.0-16.0); LYMPHOCYTES # 0.7 10^3/ul (0.8-2.9); LYMPHOCYTES % 14.8 % (15.0-51.0); MEAN CORPUSCULAR HEMOGLOBIN 33.2 pg (29.0-33.0); MEAN CORPUSCULAR HGB CONC 31.8 g/dl (32.0-37.0); MEAN CORPUSCULAR VOLUME 104.3 fl (82.0-101.0); MEAN PLATELET VOLUME 11.7 fl (7.4-10.4); MONOCYTE # 0.5 10^3/ul (0.3-0.9); MONOCYTES % 11.4 % (0.0-11.0); NEUTROPHIL # 3.1 10^3/ul (1.6-7.5); NEUTROPHILS % 70.1 % (39.0-77.0); PLATELET COUNT 104 10^3/UL (140-415); RED BLOOD COUNT 2.56 10^6/ul (4.20-5.40); RED CELL DISTRIBUTION WIDTH 14.4 % (11.5-14.5)
[2018-08-24 05:46] LABS: ANION GAP 14 (5-13); BLOOD UREA NITROGEN 33 mg/dl (7-20); CALCIUM 9.1 mg/dl (8.4-10.2); CARBON DIOXIDE 28 mmol/L (21-31); CHLORIDE 97 mmol/L (97-110); CREATININE 7.07 mg/dl (0.44-1.00); Estimated GFR 7 mL/min (>60); GLUCOSE 68 mg/dl (70-220); POTASSIUM 5.5 mmol/L (3.5-5.1); SODIUM 139 mmol/L (135-144)
[2018-08-24 05:52] LABS: CREATINE KINASE 30 IU/L (23-200)
[2018-08-24] MEDS: PANTOPRAZOLE (EC) 40 MG TAB PO (06:42)
[2018-08-24] MEDS: LIDOCAINE 5% PATCH TD (08:29)
[2018-08-24] MEDS: MULTIVIT/CA CARB/B CMPLX/FA TAB PO (08:30)
[2018-08-24] MEDS: MIDODRINE 5 MG TAB PO ×3 (08:30→18:03)
[2018-08-24] MEDS: SEVELAMER CARBONATE 800 MG TABLET PO ×3 (08:30→18:03)
[2018-08-24] MEDS: CALCITRIOL 0.25 MCG CAP PO (08:30)
[2018-08-24] MEDS: HEPARIN 1000 UNITS/ML 10 ML INJ CATHETER (22:20)
[2018-08-24] MEDS: CEFAZOLIN 1 GM/50 ML (PMX) 50 ML IVPB (22:23)
[2018-08-24] MEDS: valACYclovir 500 MG TAB PO (22:23)
[2018-08-24] MEDS: BROMOCRIPTINE 2.5 MG TAB PO (22:23)
[2018-08-24] MEDS: ONDANSETRON 4 MG INJ IV (23:07)
[2018-08-25] MEDS: DIPHENHYDRAMINE 50 MG INJ IV ×4 (05:09→23:16)
[2018-08-25] MEDS: PANTOPRAZOLE (EC) 40 MG TAB PO (05:09)
[2018-08-25] MEDS: CALCITRIOL 0.25 MCG CAP PO (08:16)
[2018-08-25] MEDS: MULTIVIT/CA CARB/B CMPLX/FA TAB PO (08:16)
[2018-08-25] MEDS: SEVELAMER CARBONATE 800 MG TABLET PO ×3 (08:17→17:22)
[2018-08-25] MEDS: LIDOCAINE 5% PATCH TD (08:32)
[2018-08-25] MEDS: MIDODRINE 5 MG TAB PO ×4 (08:32→17:21)
[2018-08-25] MEDS: SOD CHLORIDE 0.9% 500 ML IV (11:20)
[2018-08-25] MEDS: morphine 4 MG/ML VIAL IV ×2 (14:39→20:16)
[2018-08-25] MEDS: EPOETIN 4000 UNITS/1 ML INJ (ESRD) SC (17:23)
[2018-08-25] MEDS: BROMOCRIPTINE 2.5 MG TAB PO (20:28)
[2018-08-25] MEDS: valACYclovir 500 MG TAB PO (20:28)
[2018-08-25] MEDS: CEFAZOLIN 1 GM/50 ML (PMX) 50 ML IVPB (20:28)
[2018-08-26] MEDS: morphine 4 MG/ML VIAL IV ×7 (01:27→20:24)
[2018-08-26] MEDS: ONDANSETRON 4 MG INJ IV ×2 (01:31→19:17)
[2018-08-26] MEDS: PANTOPRAZOLE (EC) 40 MG TAB PO (06:13)
[2018-08-26] MEDS: DIPHENHYDRAMINE 50 MG INJ IV ×3 (06:46→19:17)
[2018-08-26] MEDS: SEVELAMER CARBONATE 800 MG TABLET PO ×3 (08:59→17:28)
[2018-08-26] MEDS: MULTIVIT/CA CARB/B CMPLX/FA TAB PO (09:00)
[2018-08-26] MEDS: CALCITRIOL 0.25 MCG CAP PO (09:00)
[2018-08-26] MEDS: LIDOCAINE 5% PATCH TD (09:00)
[2018-08-26] MEDS: MIDODRINE 5 MG TAB PO ×3 (09:26→17:28)
[2018-08-26 14:56] LABS: ADD MAN DIFF? NO
[2018-08-26 14:58] LABS: BASOPHIL # 0.1 10^3/ul (0.0-0.1); BASOPHILS % 0.8 % (0.0-2.0); EOSINOPHILS # 0.6 10^3/ul (0.0-0.5); EOSINOPHILS % 9.3 % (0.0-7.0); HEMATOCRIT 31.3 % (37.0-47.0); HEMOGLOBIN 9.7 g/dl (12.0-16.0); LYMPHOCYTES # 1.7 10^3/ul (0.8-2.9); LYMPHOCYTES % 28.4 % (15.0-51.0); MEAN CORPUSCULAR HEMOGLOBIN 32.6 pg (29.0-33.0); MEAN PLATELET VOLUME 11.9 fl (7.4-10.4); MONOCYTE # 0.6 10^3/ul (0.3-0.9); NEUTROPHIL # 3.1 10^3/ul (1.6-7.5); PLATELET COUNT 172 10^3/UL (140-415); RED BLOOD COUNT 2.98 10^6/ul (4.20-5.40); RED CELL DISTRIBUTION WIDTH 14.6 % (11.5-14.5)
[2018-08-26 14:58] LABS: WHITE BLOOD COUNT 6.1 10^3/ul (4.8-10.8)
[2018-08-26 15:18] LABS: ANION GAP 16 (5-13); BLOOD UREA NITROGEN 48 mg/dl (7-20); CALCIUM 9.2 mg/dl (8.4-10.2); CARBON DIOXIDE 24 mmol/L (21-31); CHLORIDE 104 mmol/L (97-110); CREATININE 8.43 mg/dl (0.44-1.00); Estimated GFR 5 mL/min (>60); GLUCOSE 68 mg/dl (70-220); POTASSIUM 5.4 mmol/L (3.5-5.1); SODIUM 144 mmol/L (135-144)
[2018-08-26] MEDS: BROMOCRIPTINE 2.5 MG TAB PO (20:17)
[2018-08-26] MEDS: CEFAZOLIN 1 GM/50 ML (PMX) 50 ML IVPB (20:17)
[2018-08-27] MEDS: morphine 4 MG/ML VIAL IV ×4 (01:16→19:51)
[2018-08-27] MEDS: PANTOPRAZOLE (EC) 40 MG TAB PO (06:04)
[2018-08-27] MEDS: DIPHENHYDRAMINE 50 MG INJ IV ×3 (07:38→19:52)
[2018-08-27] MEDS: SEVELAMER CARBONATE 800 MG TABLET PO ×3 (07:46→16:39)
[2018-08-27] MEDS: MIDODRINE 5 MG TAB PO ×4 (08:27→16:39)
[2018-08-27] MEDS: LIDOCAINE 5% PATCH TD (08:27)
[2018-08-27] MEDS: CALCITRIOL 0.25 MCG CAP PO (08:27)
[2018-08-27] MEDS: MULTIVIT/CA CARB/B CMPLX/FA TAB PO (08:27)
[2018-08-27] MEDS: HEPARIN 1000 UNITS/ML 10 ML INJ CATHETER (14:52)
[2018-08-27] MEDS: LIDOCAINE 1% (MDV) 20 ML INJ (15:26)
[2018-08-27] MEDS: CEFAZOLIN 1 GM/50 ML (PMX) 50 ML IVPB ×2 (16:13→20:52)
[2018-08-27] MEDS: FENTAnyl 50 MCG/ML VIAL (16:13)
[2018-08-27] MEDS: HEPARIN 1000 UNITS/ML 10 ML INJ (16:13)
[2018-08-27] MEDS: BROMOCRIPTINE 2.5 MG TAB PO (20:52)
[2018-08-28] MEDS: DIPHENHYDRAMINE 50 MG INJ IV ×4 (03:04→22:07)
[2018-08-28] MEDS: morphine 4 MG/ML VIAL IV ×7 (03:04→20:24)
[2018-08-28] MEDS: PANTOPRAZOLE (EC) 40 MG TAB PO (04:59)
[2018-08-28 05:13] LABS: ADD MAN DIFF? NO
[2018-08-28 05:16] LABS: BASOPHILS % 0.8 % (0.0-2.0); EOSINOPHILS # 0.3 10^3/ul (0.0-0.5); HEMATOCRIT 27.4 % (37.0-47.0); HEMOGLOBIN 8.7 g/dl (12.0-16.0); LYMPHOCYTES # 1.2 10^3/ul (0.8-2.9); LYMPHOCYTES % 30.3 % (15.0-51.0); MEAN CORPUSCULAR HEMOGLOBIN 32.6 pg (29.0-33.0); MEAN CORPUSCULAR HGB CONC 31.8 g/dl (32.0-37.0); MEAN CORPUSCULAR VOLUME 102.6 fl (82.0-101.0); MONOCYTE # 0.4 10^3/ul (0.3-0.9); MONOCYTES % 10.8 % (0.0-11.0); NEUTROPHILS % 49.3 % (39.0-77.0); PLATELET COUNT 181 10^3/UL (140-415); RED BLOOD COUNT 2.67 10^6/ul (4.20-5.40); RED CELL DISTRIBUTION WIDTH 14.4 % (11.5-14.5)
[2018-08-28 05:39] LABS: ANION GAP 12 (5-13); BLOOD UREA NITROGEN 31 mg/dl (7-20); CALCIUM 8.3 mg/dl (8.4-10.2); CARBON DIOXIDE 29 mmol/L (21-31); CHLORIDE 98 mmol/L (97-110); CREATININE 6.13 mg/dl (0.44-1.00); Estimated GFR 8 mL/min (>60); GLUCOSE 84 mg/dl (70-220); POTASSIUM 4.9 mmol/L (3.5-5.1); SODIUM 139 mmol/L (135-144)
[2018-08-28] MEDS: SEVELAMER CARBONATE 800 MG TABLET PO ×3 (07:50→18:34)
[2018-08-28] MEDS: CALCITRIOL 0.25 MCG CAP PO (09:00)
[2018-08-28] MEDS: MULTIVIT/CA CARB/B CMPLX/FA TAB PO (09:00)
[2018-08-28] MEDS: MIDODRINE 5 MG TAB PO ×3 (09:00→18:35)
[2018-08-28] MEDS: LIDOCAINE 5% PATCH TD (09:02)
[2018-08-28] MEDS: HEPARIN 1000 UNITS/ML 10 ML INJ (13:16)
[2018-08-28] MEDS: FENTAnyl 50 MCG/ML VIAL (14:15)
[2018-08-28] MEDS: PROPOFOL 0 ML (14:15)
[2018-08-28] MEDS: GLYCOPYRROLATE 0.4 MG INJ (14:16)
[2018-08-28] MEDS: CEFAZOLIN 1 GM/50 ML (PMX) 50 ML IVPB ×2 (14:20→20:24)
[2018-08-28] MEDS: MIDAZOLAM 1 MG/ML 2 ML INJ (14:25)
[2018-08-28] MEDS: LIDOCAINE 1% (MDV) 20 ML INJ (14:26)
[2018-08-28] MEDS ORDERED: FENTAnyl 50 MCG/ML VIAL IV (15:30)
[2018-08-28] MEDS: EPOETIN 4000 UNITS/1 ML INJ (ESRD) SC (18:36)
[2018-08-28] MEDS: BROMOCRIPTINE 2.5 MG TAB PO (20:24)
[2018-08-29] MEDS: morphine 4 MG/ML VIAL IV ×7 (01:18→22:26)
[2018-08-29] MEDS: DIPHENHYDRAMINE 50 MG INJ IV ×4 (04:08→22:26)
[2018-08-29 05:11] LABS: ADD MAN DIFF? NO
[2018-08-29 05:29] LABS: WHITE BLOOD COUNT 5.4 10^3/ul (4.8-10.8)
[2018-08-29 05:29] LABS: BASOPHILS % 0.6 % (0.0-2.0); EOSINOPHILS # 0.4 10^3/ul (0.0-0.5); EOSINOPHILS % 6.5 % (0.0-7.0); HEMATOCRIT 28.3 % (37.0-47.0); HEMOGLOBIN 8.9 g/dl (12.0-16.0); LYMPHOCYTES # 1.3 10^3/ul (0.8-2.9); LYMPHOCYTES % 23.8 % (15.0-51.0); MEAN CORPUSCULAR HEMOGLOBIN 32.8 pg (29.0-33.0); MEAN CORPUSCULAR HGB CONC 31.4 g/dl (32.0-37.0); MEAN CORPUSCULAR VOLUME 104.4 fl (82.0-101.0); MEAN PLATELET VOLUME 10.7 fl (7.4-10.4); MONOCYTE # 0.6 10^3/ul (0.3-0.9); MONOCYTES % 11.3 % (0.0-11.0); NEUTROPHIL # 3.1 10^3/ul (1.6-7.5); NEUTROPHILS % 57.1 % (39.0-77.0); PLATELET COUNT 213 10^3/UL (140-415); RED BLOOD COUNT 2.71 10^6/ul (4.20-5.40); RED CELL DISTRIBUTION WIDTH 14.3 % (11.5-14.5)
[2018-08-29 05:47] LABS: ANION GAP 16 (5-13); BLOOD UREA NITROGEN 43 mg/dl (7-20); CALCIUM 8.2 mg/dl (8.4-10.2); CARBON DIOXIDE 24 mmol/L (21-31); CHLORIDE 100 mmol/L (97-110); CREATININE 8.98 mg/dl (0.44-1.00); Estimated GFR 5 mL/min (>60); GLUCOSE 55 mg/dl (70-220); POTASSIUM 5.5 mmol/L (3.5-5.1); SODIUM 140 mmol/L (135-144)
[2018-08-29] MEDS: PANTOPRAZOLE (EC) 40 MG TAB PO (06:31)
[2018-08-29] MEDS: CALCITRIOL 0.25 MCG CAP PO (08:46)
[2018-08-29] MEDS: SEVELAMER CARBONATE 800 MG TABLET PO ×4 (08:46→17:55)
[2018-08-29] MEDS: MIDODRINE 5 MG TAB PO ×3 (08:47→17:42)
[2018-08-29] MEDS: MULTIVIT/CA CARB/B CMPLX/FA TAB PO (09:31)
[2018-08-29] MEDS: LIDOCAINE 5% PATCH TD (09:33)
[2018-08-29] MEDS: CEFAZOLIN 1 GM/50 ML (PMX) 50 ML IVPB (21:25)
[2018-08-29] MEDS: BROMOCRIPTINE 2.5 MG TAB PO (21:25)
[2018-08-30] MEDS: morphine 4 MG/ML VIAL IV ×5 (04:46→23:00)
[2018-08-30] MEDS: DIPHENHYDRAMINE 50 MG INJ IV ×4 (04:47→23:00)
[2018-08-30] MEDS: PANTOPRAZOLE (EC) 40 MG TAB PO (06:06)
[2018-08-30] MEDS: SEVELAMER CARBONATE 800 MG TABLET PO ×3 (08:45→17:03)
[2018-08-30] MEDS: MULTIVIT/CA CARB/B CMPLX/FA TAB PO (08:45)
[2018-08-30] MEDS: CALCITRIOL 0.25 MCG CAP PO (08:45)
[2018-08-30] MEDS: MIDODRINE 5 MG TAB PO ×3 (09:00→17:18)
[2018-08-30] MEDS: LIDOCAINE 5% PATCH TD (09:00)
[2018-08-30] MEDS: EPOETIN 4000 UNITS/1 ML INJ (ESRD) SC (17:05)
[2018-08-30] MEDS: CEFAZOLIN 1 GM/50 ML (PMX) 50 ML IVPB (22:05)
[2018-08-30] MEDS: BROMOCRIPTINE 2.5 MG TAB PO (22:05)
[2018-08-31] MEDS: DIPHENHYDRAMINE 50 MG INJ IV ×4 (04:58→23:01)
[2018-08-31] MEDS: PANTOPRAZOLE (EC) 40 MG TAB PO (04:58)
[2018-08-31] MEDS: morphine 4 MG/ML VIAL IV ×4 (04:58→23:02)
[2018-08-31 05:30] LABS: ADD MAN DIFF? NO
[2018-08-31 05:35] LABS: WHITE BLOOD COUNT 5.2 10^3/ul (4.8-10.8)
[2018-08-31 05:35] LABS: BASOPHILS % 0.8 % (0.0-2.0); EOSINOPHILS # 0.4 10^3/ul (0.0-0.5); EOSINOPHILS % 8.2 % (0.0-7.0); HEMATOCRIT 29.3 % (37.0-47.0); HEMOGLOBIN 9.1 g/dl (12.0-16.0); LYMPHOCYTES # 1.5 10^3/ul (0.8-2.9); LYMPHOCYTES % 27.7 % (15.0-51.0); MEAN CORPUSCULAR HEMOGLOBIN 32.4 pg (29.0-33.0); MEAN CORPUSCULAR HGB CONC 31.1 g/dl (32.0-37.0); MEAN CORPUSCULAR VOLUME 104.3 fl (82.0-101.0); MEAN PLATELET VOLUME 10.8 fl (7.4-10.4); MONOCYTE # 0.5 10^3/ul (0.3-0.9); MONOCYTES % 10.3 % (0.0-11.0); NEUTROPHIL # 2.7 10^3/ul (1.6-7.5); NEUTROPHILS % 50.5 % (39.0-77.0); NUCLEATED RED BLOOD CELLS% 0.6 /100WBC (0.0-0.0); PLATELET COUNT 281 10^3/UL (140-415); RED BLOOD COUNT 2.81 10^6/ul (4.20-5.40); RED CELL DISTRIBUTION WIDTH 14.9 % (11.5-14.5)
[2018-08-31 06:15] LABS: ANION GAP 15 (5-13); BLOOD UREA NITROGEN 44 mg/dl (7-20); CALCIUM 8.2 mg/dl (8.4-10.2); CARBON DIOXIDE 24 mmol/L (21-31); CHLORIDE 104 mmol/L (97-110); CREATININE 8.95 mg/dl (0.44-1.00); Estimated GFR 5 mL/min (>60); GLUCOSE 72 mg/dl (70-220); POTASSIUM 5.6 mmol/L (3.5-5.1); SODIUM 143 mmol/L (135-144)
[2018-08-31] MEDS: LIDOCAINE 5% PATCH TD (09:00)
[2018-08-31] MEDS: MULTIVIT/CA CARB/B CMPLX/FA TAB PO (09:12)
[2018-08-31] MEDS: SEVELAMER CARBONATE 800 MG TABLET PO ×3 (09:12→17:53)
[2018-08-31] MEDS: CALCITRIOL 0.25 MCG CAP PO (09:12)
[2018-08-31] MEDS: MIDODRINE 5 MG TAB PO ×3 (09:46→17:00)
[2018-08-31] MEDS ORDERED: ALTEPLASE (CATHFLO) 2 MG INJ CATHETER (17:30)
[2018-08-31] MEDS: ALTEPLASE (CATHFLO) 2 MG INJ CATHETER (20:37)
[2018-08-31] MEDS: CEFAZOLIN 1 GM/50 ML (PMX) 50 ML IVPB (21:12)
[2018-08-31] MEDS: BROMOCRIPTINE 2.5 MG TAB PO (21:12)
[2018-09-01] MEDS: PANTOPRAZOLE (EC) 40 MG TAB PO (05:10)
[2018-09-01] MEDS: morphine 4 MG/ML VIAL IV ×3 (05:11→23:18)
[2018-09-01] MEDS: DIPHENHYDRAMINE 50 MG INJ IV ×5 (05:11→23:18)
[2018-09-01] MEDS: CALCITRIOL 0.25 MCG CAP PO (08:20)
[2018-09-01] MEDS: SEVELAMER CARBONATE 800 MG TABLET PO ×3 (08:20→17:25)
[2018-09-01] MEDS: MULTIVIT/CA CARB/B CMPLX/FA TAB PO (08:20)
[2018-09-01] MEDS: LIDOCAINE 5% PATCH TD (08:40)
[2018-09-01] MEDS: MIDODRINE 5 MG TAB PO ×3 (08:41→18:50)
[2018-09-01] MEDS: HEPARIN 1000 UNITS/ML 10 ML INJ CATHETER (14:03)
[2018-09-01] MEDS: EPOETIN 4000 UNITS/1 ML INJ (ESRD) SC (17:25)
[2018-09-01] MEDS: CEFAZOLIN 1 GM/50 ML (PMX) 50 ML IVPB (21:07)
[2018-09-01] MEDS: BROMOCRIPTINE 2.5 MG TAB PO (21:07)
[2018-09-02] MEDS: morphine 4 MG/ML VIAL IV ×5 (05:17→23:05)
[2018-09-02] MEDS: DIPHENHYDRAMINE 50 MG INJ IV ×5 (05:18→23:03)
[2018-09-02] MEDS: PANTOPRAZOLE (EC) 40 MG TAB PO (05:20)
[2018-09-02] MEDS: CALCITRIOL 0.25 MCG CAP PO (08:27)
[2018-09-02] MEDS: MULTIVIT/CA CARB/B CMPLX/FA TAB PO (08:27)
[2018-09-02] MEDS: SEVELAMER CARBONATE 800 MG TABLET PO ×3 (08:27→18:23)
[2018-09-02] MEDS: MIDODRINE 5 MG TAB PO ×3 (08:32→17:00)
[2018-09-02] MEDS: LIDOCAINE 5% PATCH TD (08:39)
[2018-09-02] MEDS: BROMOCRIPTINE 2.5 MG TAB PO (20:47)
[2018-09-02] MEDS: CEFAZOLIN 1 GM/50 ML (PMX) 50 ML IVPB (20:47)
[2018-09-03] MEDS: PANTOPRAZOLE (EC) 40 MG TAB PO (05:06)
[2018-09-03] MEDS: DIPHENHYDRAMINE 50 MG INJ IV ×5 (05:07→23:46)
[2018-09-03] MEDS: morphine 4 MG/ML VIAL IV ×5 (05:09→23:34)
[2018-09-03 08:09] LABS: ADD MAN DIFF? NO
[2018-09-03 08:20] LABS: WHITE BLOOD COUNT 6.3 10^3/ul (4.8-10.8)
[2018-09-03 08:20] LABS: BASOPHIL # 0.1 10^3/ul (0.0-0.1); BASOPHILS % 0.8 % (0.0-2.0); EOSINOPHILS # 0.4 10^3/ul (0.0-0.5); EOSINOPHILS % 5.6 % (0.0-7.0); HEMATOCRIT 31.6 % (37.0-47.0); HEMOGLOBIN 9.9 g/dl (12.0-16.0); LYMPHOCYTES # 1.5 10^3/ul (0.8-2.9); LYMPHOCYTES % 24.2 % (15.0-51.0); MEAN CORPUSCULAR HEMOGLOBIN 32.9 pg (29.0-33.0); MEAN CORPUSCULAR HGB CONC 31.3 g/dl (32.0-37.0); MEAN PLATELET VOLUME 10.4 fl (7.4-10.4); MONOCYTE # 0.7 10^3/ul (0.3-0.9); MONOCYTES % 11.2 % (0.0-11.0); NEUTROPHIL # 3.6 10^3/ul (1.6-7.5); NEUTROPHILS % 57.2 % (39.0-77.0); PLATELET COUNT 303 10^3/UL (140-415); RED BLOOD COUNT 3.01 10^6/ul (4.20-5.40)
[2018-09-03] MEDS: SEVELAMER CARBONATE 800 MG TABLET PO ×3 (08:33→17:24)
[2018-09-03] MEDS: CALCITRIOL 0.25 MCG CAP PO (08:33)
[2018-09-03] MEDS: MULTIVIT/CA CARB/B CMPLX/FA TAB PO (08:33)
[2018-09-03 08:35] LABS: ANION GAP 16 (5-13); BLOOD UREA NITROGEN 47 mg/dl (7-20); CARBON DIOXIDE 23 mmol/L (21-31); CHLORIDE 100 mmol/L (97-110); CREATININE 10.81 mg/dl (0.44-1.00); Estimated GFR 4 mL/min (>60); GLUCOSE 74 mg/dl (70-220); POTASSIUM 5.3 mmol/L (3.5-5.1); SODIUM 139 mmol/L (135-144)
[2018-09-03] MEDS: LIDOCAINE 5% PATCH TD (09:00)
[2018-09-03] MEDS: MIDODRINE 5 MG TAB PO ×3 (09:21→17:20)
[2018-09-03] MEDS: HEPARIN 1000 UNITS/ML 10 ML INJ CATHETER (11:21)
[2018-09-03] MEDS: CEFAZOLIN 1 GM/50 ML (PMX) 50 ML IVPB (21:06)
[2018-09-03] MEDS: BROMOCRIPTINE 2.5 MG TAB PO (21:06)
[2018-09-04] MEDS: PANTOPRAZOLE (EC) 40 MG TAB PO (05:47)
[2018-09-04] MEDS: DIPHENHYDRAMINE 50 MG INJ IV ×3 (05:52→18:04)
[2018-09-04] MEDS: morphine 4 MG/ML VIAL IV ×5 (05:52→20:39)
[2018-09-04] MEDS: LIDOCAINE 5% PATCH TD (09:00)
[2018-09-04] MEDS: SEVELAMER CARBONATE 800 MG TABLET PO ×3 (09:09→17:55)
[2018-09-04] MEDS: CALCITRIOL 0.25 MCG CAP PO (09:10)
[2018-09-04] MEDS: MULTIVIT/CA CARB/B CMPLX/FA TAB PO (09:10)
[2018-09-04] MEDS: MIDODRINE 5 MG TAB PO ×3 (09:10→17:37)
[2018-09-04] MEDS ORDERED: EPOETIN ALFA-EPBX (ESRD) 4,000 UNIT/ML VIAL SC ×2 (17:00)
[2018-09-04] MEDS: ONDANSETRON 4 MG INJ IV (18:07)
[2018-09-04] MEDS: CEFAZOLIN 1 GM/50 ML (PMX) 50 ML IVPB (20:24)
[2018-09-04] MEDS: EPOETIN ALFA-EPBX (ESRD) 4,000 UNIT/ML VIAL SC (20:29)
[2018-09-04] MEDS: BROMOCRIPTINE 2.5 MG TAB PO (20:50)
[2018-09-05] MEDS: DIPHENHYDRAMINE 50 MG INJ IV ×4 (00:07→18:07)
[2018-09-05] MEDS: morphine 4 MG/ML VIAL IV ×5 (00:08→20:21)
[2018-09-05 04:59] LABS: ADD MAN DIFF? NO
[2018-09-05 05:01] LABS: WHITE BLOOD COUNT 8.2 10^3/ul (4.8-10.8)
[2018-09-05 05:01] LABS: BASOPHIL # 0.1 10^3/ul (0.0-0.1); BASOPHILS % 0.7 % (0.0-2.0); EOSINOPHILS # 0.4 10^3/ul (0.0-0.5); EOSINOPHILS % 5.4 % (0.0-7.0); HEMATOCRIT 33.3 % (37.0-47.0); HEMOGLOBIN 10.3 g/dl (12.0-16.0); LYMPHOCYTES # 1.7 10^3/ul (0.8-2.9); LYMPHOCYTES % 20.9 % (15.0-51.0); MEAN CORPUSCULAR HEMOGLOBIN 32.9 pg (29.0-33.0); MEAN CORPUSCULAR HGB CONC 30.9 g/dl (32.0-37.0); MEAN CORPUSCULAR VOLUME 106.4 fl (82.0-101.0); MEAN PLATELET VOLUME 10.6 fl (7.4-10.4); MONOCYTE # 0.8 10^3/ul (0.3-0.9); MONOCYTES % 9.8 % (0.0-11.0); NEUTROPHIL # 5.1 10^3/ul (1.6-7.5); NEUTROPHILS % 62.8 % (39.0-77.0); PLATELET COUNT 289 10^3/UL (140-415); RED BLOOD COUNT 3.13 10^6/ul (4.20-5.40); RED CELL DISTRIBUTION WIDTH 15.9 % (11.5-14.5)
[2018-09-05 05:21] LABS: ANION GAP 17 (5-13); BLOOD UREA NITROGEN 48 mg/dl (7-20); CALCIUM 8.7 mg/dl (8.4-10.2); CARBON DIOXIDE 27 mmol/L (21-31); CHLORIDE 97 mmol/L (97-110); CREATININE 10.81 mg/dl (0.44-1.00); Estimated GFR 4 mL/min (>60); GLUCOSE 77 mg/dl (70-220); POTASSIUM 5.3 mmol/L (3.5-5.1); SODIUM 141 mmol/L (135-144)
[2018-09-05] MEDS: PANTOPRAZOLE (EC) 40 MG TAB PO (06:07)
[2018-09-05] MEDS: LIDOCAINE 5% PATCH TD (09:00)
[2018-09-05] MEDS: CALCITRIOL 0.25 MCG CAP PO (09:33)
[2018-09-05] MEDS: SEVELAMER CARBONATE 800 MG TABLET PO ×3 (09:33→17:55)
[2018-09-05] MEDS: MULTIVIT/CA CARB/B CMPLX/FA TAB PO (09:33)
[2018-09-05] MEDS: MIDODRINE 5 MG TAB PO ×3 (09:34→17:02)
[2018-09-05] MEDS: CEFAZOLIN 1 GM/50 ML (PMX) 50 ML IVPB (20:22)
[2018-09-05] MEDS: BROMOCRIPTINE 2.5 MG TAB PO (20:24)
[2018-09-06] MEDS: PANTOPRAZOLE (EC) 40 MG TAB PO (06:03)
[2018-09-06] MEDS: morphine 4 MG/ML VIAL IV ×3 (06:03→08:47)
[2018-09-06] MEDS: DIPHENHYDRAMINE 50 MG INJ IV ×4 (06:03→20:07)
[2018-09-06 06:22] LABS: ANION GAP 17 (5-13); BLOOD UREA NITROGEN 30 mg/dl (7-20); CALCIUM 9.2 mg/dl (8.4-10.2); CARBON DIOXIDE 25 mmol/L (21-31); CHLORIDE 98 mmol/L (97-110); CREATININE 9.13 mg/dl (0.44-1.00); Estimated GFR 5 mL/min (>60); GLUCOSE 94 mg/dl (70-220); POTASSIUM 5.3 mmol/L (3.5-5.1); SODIUM 140 mmol/L (135-144)
[2018-09-06] MEDS: SEVELAMER CARBONATE 800 MG TABLET PO ×3 (08:31→17:55)
[2018-09-06] MEDS: MULTIVIT/CA CARB/B CMPLX/FA TAB PO (08:31)
[2018-09-06] MEDS: CALCITRIOL 0.25 MCG CAP PO (08:31)
[2018-09-06] MEDS: LIDOCAINE 5% PATCH TD (08:32)
[2018-09-06] MEDS: MIDODRINE 5 MG TAB PO ×3 (09:02→18:02)
[2018-09-06] MEDS: HYDROmorphONE 2 MG TAB PO (12:09)
[2018-09-06] MEDS: HYDROmorphONE 0.5 MG/0.5 ML SYG IV ×3 (14:32→22:33)
[2018-09-06] MEDS: EPOETIN ALFA-EPBX (ESRD) 3,000 UNIT/ML VIAL SC (17:00)
[2018-09-06] MEDS ORDERED: EPOETIN ALFA-EPBX (ESRD) 3,000 UNIT/ML VIAL SC (17:00)
[2018-09-06] MEDS: CEFAZOLIN 1 GM/50 ML (PMX) 50 ML IVPB (21:19)
[2018-09-06] MEDS: BROMOCRIPTINE 2.5 MG TAB PO (21:19)
[2018-09-07] MEDS: DIPHENHYDRAMINE 50 MG INJ IV ×3 (02:10→14:04)
[2018-09-07] MEDS: HYDROmorphONE 0.5 MG/0.5 ML SYG IV ×3 (02:13→11:38)
[2018-09-07] MEDS: PANTOPRAZOLE (EC) 40 MG TAB PO (05:48)
[2018-09-07 06:24] LABS: ANION GAP 16 (5-13); BLOOD UREA NITROGEN 49 mg/dl (7-20); CALCIUM 8.9 mg/dl (8.4-10.2); CARBON DIOXIDE 23 mmol/L (21-31); CHLORIDE 99 mmol/L (97-110); Estimated GFR 4 mL/min (>60); GLUCOSE 92 mg/dl (70-220); SODIUM 138 mmol/L (135-144)
[2018-09-07] MEDS: SEVELAMER CARBONATE 800 MG TABLET PO ×3 (07:50→17:55)
[2018-09-07] MEDS: MIDODRINE 5 MG TAB PO ×3 (08:15→17:00)
[2018-09-07] MEDS: LIDOCAINE 5% PATCH TD (09:00)
[2018-09-07] MEDS: MULTIVIT/CA CARB/B CMPLX/FA TAB PO (09:00)
[2018-09-07] MEDS: HEPARIN 1000 UNITS/ML 10 ML INJ CATHETER (10:49)
[2018-09-07] MEDS: CALCITRIOL 0.25 MCG CAP PO (12:45)
[2018-09-07] MEDS: EPOETIN ALFA-EPBX (ESRD) 3,000 UNIT/ML VIAL SC (18:36)
[2018-09-07] MEDS: CEFAZOLIN 1 GM/50 ML (PMX) 50 ML IVPB (20:25)
[2018-09-07] MEDS: BROMOCRIPTINE 2.5 MG TAB PO (20:26)
[2018-09-07] MEDS: ONDANSETRON 4 MG INJ IV (21:53)
[2018-09-08] MEDS: DIPHENHYDRAMINE 50 MG INJ IV ×2 (02:26→08:29)
[2018-09-08 05:48] LABS: ADD MAN DIFF? NO
[2018-09-08 05:53] LABS: BASOPHIL # 0.1 10^3/ul (0.0-0.1); BASOPHILS % 1.4 % (0.0-2.0); EOSINOPHILS # 0.3 10^3/ul (0.0-0.5); EOSINOPHILS % 4.4 % (0.0-7.0); HEMATOCRIT 41.9 % (37.0-47.0); HEMOGLOBIN 13.4 g/dl (12.0-16.0); LYMPHOCYTES # 1.6 10^3/ul (0.8-2.9); MEAN CORPUSCULAR HEMOGLOBIN 32.8 pg (29.0-33.0); MEAN CORPUSCULAR VOLUME 102.7 fl (82.0-101.0); MEAN PLATELET VOLUME 11.4 fl (7.4-10.4); MONOCYTE # 0.7 10^3/ul (0.3-0.9); MONOCYTES % 9.7 % (0.0-11.0); NEUTROPHIL # 4.4 10^3/ul (1.6-7.5); NEUTROPHILS % 61.4 % (39.0-77.0); PLATELET COUNT 252 10^3/UL (140-415); RED BLOOD COUNT 4.08 10^6/ul (4.20-5.40); RED CELL DISTRIBUTION WIDTH 15.3 % (11.5-14.5)
[2018-09-08 05:53] LABS: WHITE BLOOD COUNT 7.1 10^3/ul (4.8-10.8)
[2018-09-08] MEDS: PANTOPRAZOLE (EC) 40 MG TAB PO (06:00)
[2018-09-08 06:28] LABS: ANION GAP 21 (5-13); BLOOD UREA NITROGEN 37 mg/dl (7-20); CALCIUM 9.7 mg/dl (8.4-10.2); CARBON DIOXIDE 22 mmol/L (21-31); CHLORIDE 98 mmol/L (97-110); CREATININE 9.16 mg/dl (0.44-1.00); Estimated GFR 5 mL/min (>60); GLUCOSE 74 mg/dl (70-220); POTASSIUM 5.7 mmol/L (3.5-5.1); SODIUM 141 mmol/L (135-144)
[2018-09-08] MEDS: MULTIVIT/CA CARB/B CMPLX/FA TAB PO (08:29)
[2018-09-08] MEDS: CALCITRIOL 0.25 MCG CAP PO (08:29)
[2018-09-08] MEDS: SEVELAMER CARBONATE 800 MG TABLET PO (08:29)
[2018-09-08] MEDS: LIDOCAINE 5% PATCH TD (09:00)
[2018-09-08] MEDS: MIDODRINE 5 MG TAB PO (09:35)
[2018-09-08] MEDS: HYDROmorphONE 0.5 MG/0.5 ML SYG IV (11:10)
== END 2018-09-08 12:40 | disposition home or self-care (01) | DRG 314 ==
LOC: E/R 03:59 → MS1 05:59
PROVIDERS: Internal Medicine
PROC: 06H033Z Insertion of Infusion Device into Inferior Vena Cava, Percutaneous Approach (ICD-10-PCS; principal; 2018-08-23 11:36)
PROC: 5A1D70Z Performance of Urinary Filtration, Intermittent, Less than 6 Hours Per Day (ICD-10-PCS; 2018-08-23 11:36)
PROC: 0JHL3XZ Insertion of Tunneled Vascular Access Device into Right Upper Leg Subcutaneous Tissue and Fascia, Percutaneous Approach (ICD-10-PCS; 2018-08-23 11:36)
PROC: 06H033Z Insertion of Infusion Device into Inferior Vena Cava, Percutaneous Approach (ICD-10-PCS; 2018-08-23 11:36)
PROC: 02PYX3Z Removal of Infusion Device from Great Vessel, External Approach (ICD-10-PCS; 2018-08-23 11:36)
PROC: 06PYX3Z Removal of Infusion Device from Lower Vein, External Approach (ICD-10-PCS; 2018-08-23 11:36)
DX: T80.211A Bloodstream infection due to central venous catheter, initial encounter (principal); A41.01 Sepsis due to Methicillin susceptible Staphylococcus aureus; N18.6 End stage renal disease; I12.0 Hypertensive chronic kidney disease with stage 5 chronic kidney disease or end stage renal disease; C95.00 Acute leukemia of unspecified cell type not having achieved remission; T82.868A Thrombosis due to vascular prosthetic devices, implants and grafts, initial encounter; E87.5 Hyperkalemia; D69.6 Thrombocytopenia, unspecified; M54.10 Radiculopathy, site unspecified; Y83.2 Surgical operation with anastomosis, bypass or graft as the cause of abnormal reaction of the patient, or of later complication, without mention of misadventure at the time of the procedure; N25.0 Renal osteodystrophy; I95.3 Hypotension of hemodialysis; B00.1 Herpesviral vesicular dermatitis; D63.1 Anemia in chronic kidney disease; Z99.2 Dependence on renal dialysis; Z53.8 Procedure and treatment not carried out for other reasons
CPT/HCPCS: 36415; 36558; 71045; 72148; 76536; 76641-50; 80048; 80053; 82550; 83605; 84100; 84484; 85025; 85610; 85730; 87040-91; 87070; 87081; 87340; 87400; 88300; 90935; 93005; 93306; 93931; 96374; 96375; 97110; 97116; 97161; 97530; 99291-25

== ENCOUNTER 2018-11-28 23:22 | Emergency (ER) | payer OTHER ==
[2018-11-29] MEDS: SOD CHLORIDE 0.9% 1,000 ML IV (00:34)
[2018-11-29] MEDS: KETOROLAC 15 MG INJ IV (00:34)
[2018-11-29 01:25] LABS: ADD MAN DIFF? NO
[2018-11-29] MEDS: ONDANSETRON 4 MG INJ IV ×2 (01:26→03:27)
[2018-11-29] MEDS: morphine 4 MG/ML VIAL IV ×2 (01:26→03:27)
[2018-11-29 01:28] LABS: WHITE BLOOD COUNT 14.8 10^3/ul (4.8-10.8)
[2018-11-29 01:28] LABS: BASOPHILS % 0.3 % (0.0-2.0); EOSINOPHILS # 0.2 10^3/ul (0.0-0.5); EOSINOPHILS % 1.6 % (0.0-7.0); HEMATOCRIT 27.6 % (37.0-47.0); HEMOGLOBIN 8.6 g/dl (12.0-16.0); LYMPHOCYTES # 1.7 10^3/ul (0.8-2.9); LYMPHOCYTES % 11.2 % (15.0-51.0); MEAN CORPUSCULAR HGB CONC 31.2 g/dl (32.0-37.0); MEAN CORPUSCULAR VOLUME 102.6 fl (82.0-101.0); MEAN PLATELET VOLUME 11.1 fl (7.4-10.4); MONOCYTE # 1.4 10^3/ul (0.3-0.9); MONOCYTES % 9.3 % (0.0-11.0); NEUTROPHIL # 11.4 10^3/ul (1.6-7.5); NEUTROPHILS % 77.1 % (39.0-77.0); PLATELET COUNT 235 10^3/UL (140-415); RED BLOOD COUNT 2.69 10^6/ul (4.20-5.40)
[2018-11-29 01:48] LABS: ALANINE AMINOTRANSFERASE 18 IU/L (13-69); ALBUMIN/GLOBULIN RATIO 1.14; ALKALINE PHOSPHATASE 63 IU/L (42-121); ANION GAP 15 (5-13); ASPARTATE AMINO TRANSFERASE 18 IU/L (15-46); BILIRUBIN,INDIRECT 0.3 mg/dl (0-1.1); BILIRUBIN,TOTAL 0.3 mg/dl (0.2-1.3); BLOOD UREA NITROGEN 30 mg/dl (7-20); CALCIUM 8.7 mg/dl (8.4-10.2); CARBON DIOXIDE 29 mmol/L (21-31); CHLORIDE 95 mmol/L (97-110); CREATININE 5.96 mg/dl (0.44-1.00); Estimated GFR 8 mL/min (>60); GLUCOSE 91 mg/dl (70-220); LIPASE 15 U/L (23-300); POTASSIUM 4.9 mmol/L (3.5-5.1); SODIUM 139 mmol/L (135-144); TOTAL PROTEIN 7.5 g/dl (6.1-8.1)
== END 2018-11-29 04:19 | disposition home or self-care (01) ==
LOC: E/R 23:22
DX: D72.829 Elevated white blood cell count, unspecified (principal); M25.50 Pain in unspecified joint; D50.9 Iron deficiency anemia, unspecified; N18.6 End stage renal disease; E03.9 Hypothyroidism, unspecified; C41.9 Malignant neoplasm of bone and articular cartilage, unspecified; Z85.6 Personal history of leukemia; Z99.2 Dependence on renal dialysis; Z87.891 Personal history of nicotine dependence
CPT/HCPCS: 36415; 80053; 83690; 85025; 96374; 96375; 96376; 99284-25

== ENCOUNTER 2018-12-03 15:21 | Inpatient (IN) | payer OTHER ==
[2018-12-03 16:30] LABS: ADD MAN DIFF? NO
[2018-12-03 16:32] LABS: WHITE BLOOD COUNT 11.7 10^3/ul (4.8-10.8)
[2018-12-03 16:32] LABS: BASOPHILS % 0.3 % (0.0-2.0); EOSINOPHILS # 0.1 10^3/ul (0.0-0.5); HEMATOCRIT 26.6 % (37.0-47.0); HEMOGLOBIN 8.3 g/dl (12.0-16.0); LYMPHOCYTES # 0.8 10^3/ul (0.8-2.9); LYMPHOCYTES % 6.8 % (15.0-51.0); MEAN CORPUSCULAR HEMOGLOBIN 31.2 pg (29.0-33.0); MEAN CORPUSCULAR HGB CONC 31.2 g/dl (32.0-37.0); MEAN PLATELET VOLUME 10.4 fl (7.4-10.4); MONOCYTE # 0.8 10^3/ul (0.3-0.9); MONOCYTES % 6.5 % (0.0-11.0); NEUTROPHIL # 9.8 10^3/ul (1.6-7.5); PLATELET COUNT 223 10^3/UL (140-415); RED BLOOD COUNT 2.66 10^6/ul (4.20-5.40); RED CELL DISTRIBUTION WIDTH 16.3 % (11.5-14.5)
[2018-12-03] MEDS: ONDANSETRON 4 MG INJ IV ×3 (16:33→21:41)
[2018-12-03] MEDS: morphine 4 MG/ML VIAL IV (16:34)
[2018-12-03 16:50] LABS: ALANINE AMINOTRANSFERASE 25 IU/L (13-69); ALBUMIN 3.7 g/dl (3.3-4.9); ALBUMIN/GLOBULIN RATIO 1.02; ALKALINE PHOSPHATASE 81 IU/L (42-121); ANION GAP 11 (5-13); ASPARTATE AMINO TRANSFERASE 18 IU/L (15-46); BILIRUBIN,INDIRECT 0.2 mg/dl (0-1.1); BILIRUBIN,TOTAL 0.2 mg/dl (0.2-1.3); BLOOD UREA NITROGEN 32 mg/dl (7-20); CALCIUM 8.5 mg/dl (8.4-10.2); CARBON DIOXIDE 29 mmol/L (21-31); CHLORIDE 100 mmol/L (97-110); CREATININE 5.44 mg/dl (0.44-1.00); Estimated GFR 9 mL/min (>60); GLUCOSE 92 mg/dl (70-220); POTASSIUM 4.9 mmol/L (3.5-5.1); SODIUM 140 mmol/L (135-144); TOTAL PROTEIN 7.3 g/dl (6.1-8.1)
[2018-12-03 16:55] LABS: INR 1.13; PROTIME 14.6 Sec (11.9-14.9); PT RATIO 1.1
[2018-12-03 16:57] LABS: PARTIAL THROMBOPLASTIN TIME 49.5 Sec (23.0-35.0)
[2018-12-03 17:02] LABS: TROPONIN-I < 0.012 ng/ml (0.000-0.120)
[2018-12-03] MEDS: DIPHENHYDRAMINE 50 MG INJ IV (17:03)
[2018-12-03] MEDS ORDERED: ACETAMINOPHEN 325 MG TAB PO (17:30)
[2018-12-03] MEDS ORDERED: SODIUM CHLORIDE 0.9% 1L BAG IV (18:00)
[2018-12-03] MEDS ORDERED: HEPARIN 1000 UNITS/ML 10 ML INJ CATHETER (18:00)
[2018-12-03] MEDS: HYDROmorphONE 1 MG/ML SYG IV ×2 (18:14→21:41)
[2018-12-03 20:45] LABS: HEPATITIS B SURFACE ANTIGEN NEGATIVE (NEGATIVE)
[2018-12-03] MEDS: ALBUMIN HUMAN 25% 100 ML IV (21:00)
[2018-12-04] MEDS: HEPARIN 1000 UNITS/ML 10 ML INJ CATHETER (00:49)
[2018-12-04] MEDS: ACETAMINOPHEN 325 MG TAB PO ×2 (01:12→14:31)
[2018-12-04] MEDS: SOD CHLORIDE 0.9% 250 ML IV ×2 (01:14→02:24)
[2018-12-04] MEDS: HYDROmorphONE 0.5 MG/0.5 ML SYG IV ×5 (01:54→23:04)
[2018-12-04] MEDS: DIPHENHYDRAMINE 50 MG INJ IV ×4 (02:23→23:03)
[2018-12-04] MEDS ORDERED: VANCOMYCIN IV PER PHARMACY XX (02:30)
[2018-12-04] MEDS ORDERED: NORepinephrine 8MG/250 ML (PMX 250 ML IV (02:30)
[2018-12-04 02:38] LABS: LACTIC ACID 1.3 mmol/L (0.5-2.0)
[2018-12-04] MEDS: CEFEPIME 1GM/50 ML (PMX) 50 ML IVPB (02:46)
[2018-12-04] MEDS: NORepinephrine 8MG/250 ML (PMX 250 ML IV (04:10)
[2018-12-04 05:23] LABS: ADD MAN DIFF? NO
[2018-12-04 05:26] LABS: BASOPHIL # 0.1 10^3/ul (0.0-0.1); BASOPHILS % 0.4 % (0.0-2.0); EOSINOPHILS # 0.1 10^3/ul (0.0-0.5); EOSINOPHILS % 0.4 % (0.0-7.0); HEMATOCRIT 23.6 % (37.0-47.0); HEMOGLOBIN 7.6 g/dl (12.0-16.0); LYMPHOCYTES # 0.7 10^3/ul (0.8-2.9); LYMPHOCYTES % 4.4 % (15.0-51.0); MEAN CORPUSCULAR HEMOGLOBIN 32.1 pg (29.0-33.0); MEAN CORPUSCULAR HGB CONC 32.2 g/dl (32.0-37.0); MEAN CORPUSCULAR VOLUME 99.6 fl (82.0-101.0); MEAN PLATELET VOLUME 10.8 fl (7.4-10.4); MONOCYTE # 1.4 10^3/ul (0.3-0.9); MONOCYTES % 8.3 % (0.0-11.0); NEUTROPHIL # 13.9 10^3/ul (1.6-7.5); NEUTROPHILS % 84.8 % (39.0-77.0); PLATELET COUNT 225 10^3/UL (140-415); RED BLOOD COUNT 2.37 10^6/ul (4.20-5.40); RED CELL DISTRIBUTION WIDTH 16.5 % (11.5-14.5)
[2018-12-04 05:26] LABS: WHITE BLOOD COUNT 16.4 10^3/ul (4.8-10.8)
[2018-12-04 05:46] LABS: LACTIC ACID 1.2 mmol/L (0.5-2.0)
[2018-12-04] MEDS: LINEZOLID 600 MG/300 ML IVPB ×2 (06:02→18:35)
[2018-12-04 06:51] LABS: ANION GAP 14 (5-13); BLOOD UREA NITROGEN 18 mg/dl (7-20); CALCIUM 8.2 mg/dl (8.4-10.2); CARBON DIOXIDE 27 mmol/L (21-31); CHLORIDE 99 mmol/L (97-110); CREATININE 3.45 mg/dl (0.44-1.00); Estimated GFR 15 mL/min (>60); GLUCOSE 99 mg/dl (70-220); SODIUM 140 mmol/L (135-144)
[2018-12-04] MEDS: SEVELAMER CARBONATE 800 MG TABLET PO ×3 (08:06→18:34)
[2018-12-04] MEDS: ONDANSETRON 4 MG INJ IV (08:20)
[2018-12-05] MEDS: CEFEPIME 1GM/50 ML (PMX) 50 ML IVPB (02:29)
[2018-12-05] MEDS: DIPHENHYDRAMINE 50 MG INJ IV ×4 (05:15→23:13)
[2018-12-05] MEDS: HYDROmorphONE 0.5 MG/0.5 ML SYG IV ×3 (05:15→13:30)
[2018-12-05] MEDS: LINEZOLID 600 MG/300 ML IVPB ×2 (05:16→16:58)
[2018-12-05 05:26] LABS: ADD MAN DIFF? NO
[2018-12-05 05:44] LABS: ABNORMAL IP MESSAGE 1; BASOPHILS % 0.3 % (0.0-2.0); EOSINOPHILS # 0.3 10^3/ul (0.0-0.5); EOSINOPHILS % 4.5 % (0.0-7.0); HEMATOCRIT 21.7 % (37.0-47.0); LYMPHOCYTES # 1.1 10^3/ul (0.8-2.9); LYMPHOCYTES % 18.5 % (15.0-51.0); MEAN CORPUSCULAR HEMOGLOBIN 31.6 pg (29.0-33.0); MEAN CORPUSCULAR HGB CONC 31.3 g/dl (32.0-37.0); MEAN CORPUSCULAR VOLUME 100.9 fl (82.0-101.0); MEAN PLATELET VOLUME 11.3 fl (7.4-10.4); MONOCYTE # 0.6 10^3/ul (0.3-0.9); MONOCYTES % 9.9 % (0.0-11.0); NEUTROPHILS % 66.3 % (39.0-77.0); PLATELET COUNT 181 10^3/UL (140-415); RED BLOOD COUNT 2.15 10^6/ul (4.20-5.40); RED CELL DISTRIBUTION WIDTH 16.1 % (11.5-14.5)
[2018-12-05 05:47] LABS: HEMOGLOBIN 6.8 g/dl (12.0-16.0); POSITIVE DIFF @See below
[2018-12-05 05:52] LABS: ANION GAP 14 (5-13); BLOOD UREA NITROGEN 34 mg/dl (7-20); CALCIUM 7.6 mg/dl (8.4-10.2); CARBON DIOXIDE 26 mmol/L (21-31); CHLORIDE 98 mmol/L (97-110); CREATININE 5.27 mg/dl (0.44-1.00); Estimated GFR 9 mL/min (>60); GLUCOSE 105 mg/dl (70-220); POTASSIUM 4.7 mmol/L (3.5-5.1); SODIUM 138 mmol/L (135-144)
[2018-12-05] MEDS: MIDODRINE 5 MG TAB PO ×3 (08:40→16:58)
[2018-12-05] MEDS: SEVELAMER CARBONATE 800 MG TABLET PO ×3 (08:41→16:58)
[2018-12-05 11:59] LABS: AHG CROSSMATCH 1 2
[2018-12-05] MEDS ORDERED: LIDOCAINE 1% (MDV) 20 ML INJ INJ (12:30)
[2018-12-05 13:23] LABS: ANISOCYTOSIS 1+ (0-0); BAND NEUTROPHILS #M 0.2 10^3/ul (0.0-0.6); BAND NEUTROPHILS % (M) 4 % (0-4); EOSINOPHILS % (M) 4 % (0-7); ERYTHROBLAST% (NRBC) (M) 1 % (0-0); GIANT THROMBO% (M) 2 % (0-0); LYMPHOCYTES #M 1.7 10^3/ul (0.8-2.9); LYMPHOCYTES % (M) 29 % (15-51); MICROCYTOSIS 1+ (0-0); MONOCYTE #M 0.2 10^3/ul (0.3-0.9); MONOCYTES % (M) 4 % (0-11); PLATELET ESTIMATE NORMAL; POLYCHROMASIA 1+ (0-0); SEG NEUT #M 3.6 10^3/ul (1.6-7.5); SEGMENTED NEUTROPHILS (M) % 59 % (39-77); SMUDGE%M 1 % (0-0)
[2018-12-05] MEDS: ALTEPLASE (CATHFLO) 2 MG INJ CATHETER (14:03)
[2018-12-05] MEDS: ACETAMINOPHEN 325 MG TAB PO (14:54)
[2018-12-05] MEDS: morphine 2 MG INJ IV ×2 (16:59→20:47)
[2018-12-05] MEDS: EPOETIN 10000 UNITS/1 ML INJ (ESRD) SC (17:04)
[2018-12-06] MEDS: CEFEPIME 1GM/50 ML (PMX) 50 ML IVPB (03:12)
[2018-12-06] MEDS: morphine 2 MG INJ IV ×4 (03:12→20:24)
[2018-12-06] MEDS: LINEZOLID 600 MG/300 ML IVPB (05:23)
[2018-12-06] MEDS: DIPHENHYDRAMINE 50 MG INJ IV ×3 (05:24→17:55)
[2018-12-06 06:40] LABS: ADD MAN DIFF? NO
[2018-12-06 06:43] LABS: BASOPHILS % 0.4 % (0.0-2.0); EOSINOPHILS # 0.2 10^3/ul (0.0-0.5); EOSINOPHILS % 1.9 % (0.0-7.0); HEMATOCRIT 29.2 % (37.0-47.0); HEMOGLOBIN 9.5 g/dl (12.0-16.0); LYMPHOCYTES # 1.5 10^3/ul (0.8-2.9); MEAN CORPUSCULAR HEMOGLOBIN 31.4 pg (29.0-33.0); MEAN CORPUSCULAR HGB CONC 32.5 g/dl (32.0-37.0); MEAN CORPUSCULAR VOLUME 96.4 fl (82.0-101.0); MEAN PLATELET VOLUME 10.6 fl (7.4-10.4); MONOCYTE # 0.8 10^3/ul (0.3-0.9); MONOCYTES % 8.2 % (0.0-11.0); PLATELET COUNT 228 10^3/UL (140-415); RED BLOOD COUNT 3.03 10^6/ul (4.20-5.40); RED CELL DISTRIBUTION WIDTH 18.3 % (11.5-14.5)
[2018-12-06 06:43] LABS: WHITE BLOOD COUNT 9.6 10^3/ul (4.8-10.8)
[2018-12-06 07:14] LABS: ANION GAP 11 (5-13); BLOOD UREA NITROGEN 22 mg/dl (7-20); CALCIUM 7.9 mg/dl (8.4-10.2); CARBON DIOXIDE 28 mmol/L (21-31); CHLORIDE 97 mmol/L (97-110); CREATININE 4.43 mg/dl (0.44-1.00); Estimated GFR 11 mL/min (>60); GLUCOSE 88 mg/dl (70-220); POTASSIUM 4.3 mmol/L (3.5-5.1); SODIUM 136 mmol/L (135-144)
[2018-12-06] MEDS: MIDODRINE 5 MG TAB PO ×3 (08:40→16:56)
[2018-12-06] MEDS: SEVELAMER CARBONATE 800 MG TABLET PO ×4 (08:40→17:59)
[2018-12-06] MEDS ORDERED: CEFAZOLIN 2 GM/50 ML (PMX) 50 ML IVPB (16:30)
[2018-12-06] MEDS: CEFAZOLIN 1 GM/50 ML (PMX) 50 ML IVPB (16:52)
[2018-12-06] MEDS: ONDANSETRON 4 MG INJ IV (20:24)
[2018-12-07] MEDS: DIPHENHYDRAMINE 50 MG INJ IV ×4 (00:22→18:49)
[2018-12-07] MEDS: morphine 2 MG INJ IV ×4 (03:34→21:58)
[2018-12-07] MEDS: ONDANSETRON 4 MG INJ IV (03:37)
[2018-12-07 06:31] LABS: ADD MAN DIFF? NO
[2018-12-07 06:37] LABS: WHITE BLOOD COUNT 8.4 10^3/ul (4.8-10.8)
[2018-12-07 06:37] LABS: BASOPHIL # 0.1 10^3/ul (0.0-0.1); BASOPHILS % 0.6 % (0.0-2.0); EOSINOPHILS # 0.3 10^3/ul (0.0-0.5); EOSINOPHILS % 3.2 % (0.0-7.0); HEMATOCRIT 32.5 % (37.0-47.0); HEMOGLOBIN 10.5 g/dl (12.0-16.0); LYMPHOCYTES % 23.9 % (15.0-51.0); MEAN CORPUSCULAR HEMOGLOBIN 30.8 pg (29.0-33.0); MEAN CORPUSCULAR HGB CONC 32.3 g/dl (32.0-37.0); MEAN CORPUSCULAR VOLUME 95.3 fl (82.0-101.0); MEAN PLATELET VOLUME 10.9 fl (7.4-10.4); MONOCYTE # 0.5 10^3/ul (0.3-0.9); MONOCYTES % 6.3 % (0.0-11.0); NEUTROPHIL # 5.5 10^3/ul (1.6-7.5); NEUTROPHILS % 65.4 % (39.0-77.0); PLATELET COUNT 275 10^3/UL (140-415); RED BLOOD COUNT 3.41 10^6/ul (4.20-5.40); RED CELL DISTRIBUTION WIDTH 17.3 % (11.5-14.5)
[2018-12-07 07:08] LABS: ANION GAP 16 (5-13); BLOOD UREA NITROGEN 38 mg/dl (7-20); CALCIUM 7.5 mg/dl (8.4-10.2); CARBON DIOXIDE 26 mmol/L (21-31); CHLORIDE 98 mmol/L (97-110); CREATININE 7.16 mg/dl (0.44-1.00); Estimated GFR 7 mL/min (>60); GLUCOSE 74 mg/dl (70-220); SODIUM 140 mmol/L (135-144)
[2018-12-07] MEDS: MIDODRINE 5 MG TAB PO ×3 (09:03→18:11)
[2018-12-07] MEDS: SEVELAMER CARBONATE 800 MG TABLET PO ×2 (12:13→17:49)
[2018-12-07] MEDS: HEPARIN 1000 UNITS/ML 10 ML INJ CATHETER (14:30)
[2018-12-07] MEDS: CEFAZOLIN 1 GM/50 ML (PMX) 50 ML IVPB (17:00)
[2018-12-07] MEDS: EPOETIN ALFA-EPBX (ESRD) 10,000 UNIT/ML VIAL SC (18:13)
[2018-12-08] MEDS: DIPHENHYDRAMINE 50 MG INJ IV ×4 (00:45→18:42)
[2018-12-08] MEDS: morphine 2 MG INJ IV ×4 (06:28→18:19)
[2018-12-08 06:35] LABS: ADD MAN DIFF? NO
[2018-12-08 06:41] LABS: BASOPHILS % 0.5 % (0.0-2.0); EOSINOPHILS # 0.2 10^3/ul (0.0-0.5); EOSINOPHILS % 2.8 % (0.0-7.0); HEMATOCRIT 32.6 % (37.0-47.0); HEMOGLOBIN 10.5 g/dl (12.0-16.0); LYMPHOCYTES # 1.8 10^3/ul (0.8-2.9); LYMPHOCYTES % 20.4 % (15.0-51.0); MEAN CORPUSCULAR HEMOGLOBIN 30.9 pg (29.0-33.0); MEAN CORPUSCULAR HGB CONC 32.2 g/dl (32.0-37.0); MEAN CORPUSCULAR VOLUME 95.9 fl (82.0-101.0); MEAN PLATELET VOLUME 10.4 fl (7.4-10.4); MONOCYTE # 0.6 10^3/ul (0.3-0.9); NEUTROPHIL # 5.9 10^3/ul (1.6-7.5); NEUTROPHILS % 68.9 % (39.0-77.0); PLATELET COUNT 264 10^3/UL (140-415); RED CELL DISTRIBUTION WIDTH 17.2 % (11.5-14.5)
[2018-12-08 06:41] LABS: WHITE BLOOD COUNT 8.6 10^3/ul (4.8-10.8)
[2018-12-08 07:16] LABS: ANION GAP 12 (5-13); BLOOD UREA NITROGEN 23 mg/dl (7-20); CALCIUM 7.6 mg/dl (8.4-10.2); CARBON DIOXIDE 27 mmol/L (21-31); CHLORIDE 103 mmol/L (97-110); CREATININE 5.35 mg/dl (0.44-1.00); Estimated GFR 9 mL/min (>60); GLUCOSE 76 mg/dl (70-220); SODIUM 142 mmol/L (135-144)
[2018-12-08] MEDS: MIDODRINE 5 MG TAB PO ×3 (08:48→16:51)
[2018-12-08] MEDS: SEVELAMER CARBONATE 800 MG TABLET PO ×3 (08:48→16:57)
[2018-12-08] MEDS: CEFAZOLIN 1 GM/50 ML (PMX) 50 ML IVPB (16:51)
[2018-12-08] MEDS: ACETAMINOPHEN 325 MG TAB PO (18:43)
[2018-12-09] MEDS: DIPHENHYDRAMINE 50 MG INJ IV ×4 (00:33→18:39)
[2018-12-09] MEDS: morphine 2 MG INJ IV ×5 (00:34→21:42)
[2018-12-09 06:19] LABS: ADD MAN DIFF? NO
[2018-12-09 06:29] LABS: BASOPHIL # 0.1 10^3/ul (0.0-0.1); BASOPHILS % 0.7 % (0.0-2.0); EOSINOPHILS # 0.3 10^3/ul (0.0-0.5); EOSINOPHILS % 3.4 % (0.0-7.0); HEMATOCRIT 30.3 % (37.0-47.0); HEMOGLOBIN 9.6 g/dl (12.0-16.0); LYMPHOCYTES # 1.5 10^3/ul (0.8-2.9); LYMPHOCYTES % 20.3 % (15.0-51.0); MEAN CORPUSCULAR HGB CONC 31.7 g/dl (32.0-37.0); MEAN CORPUSCULAR VOLUME 97.7 fl (82.0-101.0); MEAN PLATELET VOLUME 10.4 fl (7.4-10.4); MONOCYTE # 0.5 10^3/ul (0.3-0.9); MONOCYTES % 6.7 % (0.0-11.0); NEUTROPHIL # 5.1 10^3/ul (1.6-7.5); NEUTROPHILS % 68.5 % (39.0-77.0); PLATELET COUNT 237 10^3/UL (140-415); RED CELL DISTRIBUTION WIDTH 16.7 % (11.5-14.5)
[2018-12-09 06:29] LABS: WHITE BLOOD COUNT 7.4 10^3/ul (4.8-10.8)
[2018-12-09 07:03] LABS: ANION GAP 14 (5-13); BLOOD UREA NITROGEN 35 mg/dl (7-20); CALCIUM 7.7 mg/dl (8.4-10.2); CARBON DIOXIDE 25 mmol/L (21-31); CHLORIDE 105 mmol/L (97-110); CREATININE 7.71 mg/dl (0.44-1.00); Estimated GFR 6 mL/min (>60); GLUCOSE 73 mg/dl (70-220); POTASSIUM 5.1 mmol/L (3.5-5.1); SODIUM 144 mmol/L (135-144)
[2018-12-09] MEDS: SEVELAMER CARBONATE 800 MG TABLET PO ×3 (08:32→17:18)
[2018-12-09] MEDS: MIDODRINE 5 MG TAB PO ×3 (08:33→17:17)
[2018-12-09] MEDS: OXACILLIN 2 GM in SOD CHLORIDE 0.9% 50 ML IVPB ×2 (17:22→23:44)
[2018-12-09] MEDS: ONDANSETRON 4 MG INJ IV (23:04)
[2018-12-10] MEDS: DIPHENHYDRAMINE 50 MG INJ IV ×4 (00:31→18:35)
[2018-12-10] MEDS: morphine 2 MG INJ IV ×4 (04:03→21:58)
[2018-12-10] MEDS: OXACILLIN 2 GM in SOD CHLORIDE 0.9% 50 ML IVPB ×3 (06:29→17:40)
[2018-12-10 06:46] LABS: ADD MAN DIFF? NO
[2018-12-10 06:51] LABS: BASOPHIL # 0.1 10^3/ul (0.0-0.1); BASOPHILS % 0.7 % (0.0-2.0); EOSINOPHILS # 0.4 10^3/ul (0.0-0.5); EOSINOPHILS % 4.3 % (0.0-7.0); HEMOGLOBIN 9.8 g/dl (12.0-16.0); LYMPHOCYTES # 1.6 10^3/ul (0.8-2.9); LYMPHOCYTES % 18.9 % (15.0-51.0); MEAN CORPUSCULAR HEMOGLOBIN 30.3 pg (29.0-33.0); MEAN CORPUSCULAR HGB CONC 31.6 g/dl (32.0-37.0); MEAN PLATELET VOLUME 10.4 fl (7.4-10.4); MONOCYTE # 0.6 10^3/ul (0.3-0.9); MONOCYTES % 6.8 % (0.0-11.0); NEUTROPHIL # 5.8 10^3/ul (1.6-7.5); NEUTROPHILS % 68.8 % (39.0-77.0); PLATELET COUNT 273 10^3/UL (140-415); RED BLOOD COUNT 3.23 10^6/ul (4.20-5.40); RED CELL DISTRIBUTION WIDTH 16.2 % (11.5-14.5)
[2018-12-10 06:51] LABS: WHITE BLOOD COUNT 8.4 10^3/ul (4.8-10.8)
[2018-12-10 07:17] LABS: ANION GAP 15 (5-13); BLOOD UREA NITROGEN 44 mg/dl (7-20); CALCIUM 7.9 mg/dl (8.4-10.2); CARBON DIOXIDE 24 mmol/L (21-31); CHLORIDE 104 mmol/L (97-110); Estimated GFR 5 mL/min (>60); GLUCOSE 70 mg/dl (70-220); POTASSIUM 5.3 mmol/L (3.5-5.1); SODIUM 143 mmol/L (135-144)
[2018-12-10] MEDS: MIDODRINE 5 MG TAB PO ×3 (08:14→16:37)
[2018-12-10] MEDS: SEVELAMER CARBONATE 800 MG TABLET PO ×3 (08:14→16:59)
[2018-12-10] MEDS: EPOETIN ALFA-EPBX (ESRD) 10,000 UNIT/ML VIAL SC (16:38)
[2018-12-11] MEDS: OXACILLIN 2 GM in SOD CHLORIDE 0.9% 50 ML IVPB ×4 (00:52→17:26)
[2018-12-11] MEDS: DIPHENHYDRAMINE 50 MG INJ IV ×4 (03:53→23:04)
[2018-12-11] MEDS: morphine 2 MG INJ IV ×5 (03:56→23:04)
[2018-12-11 07:04] LABS: ANION GAP 14 (5-13); BLOOD UREA NITROGEN 27 mg/dl (7-20); CALCIUM 8.4 mg/dl (8.4-10.2); CARBON DIOXIDE 25 mmol/L (21-31); CHLORIDE 102 mmol/L (97-110); CREATININE 7.58 mg/dl (0.44-1.00); Estimated GFR 6 mL/min (>60); GLUCOSE 71 mg/dl (70-220); SODIUM 141 mmol/L (135-144)
[2018-12-11] MEDS: SEVELAMER CARBONATE 800 MG TABLET PO ×3 (08:08→16:57)
[2018-12-11] MEDS: MIDODRINE 5 MG TAB PO ×3 (08:08→16:25)
[2018-12-11] MEDS: ONDANSETRON 4 MG INJ IV (14:06)
[2018-12-12] MEDS: OXACILLIN 2 GM in SOD CHLORIDE 0.9% 50 ML IVPB ×5 (00:25→23:05)
[2018-12-12] MEDS: DIPHENHYDRAMINE 50 MG INJ IV ×4 (05:03→23:00)
[2018-12-12] MEDS: morphine 2 MG INJ IV ×4 (05:03→23:01)
[2018-12-12] MEDS: MIDODRINE 5 MG TAB PO ×3 (08:38→17:23)
[2018-12-12] MEDS: SEVELAMER CARBONATE 800 MG TABLET PO ×3 (08:38→17:23)
[2018-12-12] MEDS: MUPIROCIN 2% 22 GM OINT TOP ×2 (14:22→21:00)
[2018-12-12] MEDS: HEPARIN 1000 UNITS/ML 10 ML INJ CATHETER (16:53)
[2018-12-12] MEDS: EPOETIN ALFA-EPBX (ESRD) 10,000 UNIT/ML VIAL SC (17:33)
[2018-12-13] MEDS: DIPHENHYDRAMINE 50 MG INJ IV ×4 (05:01→23:07)
[2018-12-13] MEDS: morphine 2 MG INJ IV ×4 (05:02→23:08)
[2018-12-13] MEDS: OXACILLIN 2 GM in SOD CHLORIDE 0.9% 50 ML IVPB ×4 (05:57→23:08)
[2018-12-13 06:25] LABS: ADD MAN DIFF? NO
[2018-12-13 06:27] LABS: BASOPHIL # 0.1 10^3/ul (0.0-0.1); BASOPHILS % 0.9 % (0.0-2.0); EOSINOPHILS # 0.2 10^3/ul (0.0-0.5); EOSINOPHILS % 2.5 % (0.0-7.0); HEMATOCRIT 40.7 % (37.0-47.0); HEMOGLOBIN 12.7 g/dl (12.0-16.0); LYMPHOCYTES # 1.2 10^3/ul (0.8-2.9); LYMPHOCYTES % 13.7 % (15.0-51.0); MEAN CORPUSCULAR HEMOGLOBIN 30.6 pg (29.0-33.0); MEAN CORPUSCULAR HGB CONC 31.2 g/dl (32.0-37.0); MEAN CORPUSCULAR VOLUME 98.1 fl (82.0-101.0); MEAN PLATELET VOLUME 9.9 fl (7.4-10.4); MONOCYTE # 0.6 10^3/ul (0.3-0.9); MONOCYTES % 6.6 % (0.0-11.0); NEUTROPHIL # 6.7 10^3/ul (1.6-7.5); NEUTROPHILS % 75.8 % (39.0-77.0); PLATELET COUNT 378 10^3/UL (140-415); RED BLOOD COUNT 4.15 10^6/ul (4.20-5.40); RED CELL DISTRIBUTION WIDTH 16.6 % (11.5-14.5)
[2018-12-13 06:27] LABS: WHITE BLOOD COUNT 8.8 10^3/ul (4.8-10.8)
[2018-12-13 06:43] LABS: INR 1.27; PT RATIO 1.3
[2018-12-13 06:55] LABS: ANION GAP 16 (5-13); BLOOD UREA NITROGEN 29 mg/dl (7-20); CALCIUM 9.5 mg/dl (8.4-10.2); CARBON DIOXIDE 22 mmol/L (21-31); CHLORIDE 108 mmol/L (97-110); CREATININE 7.74 mg/dl (0.44-1.00); Estimated GFR 6 mL/min (>60); GLUCOSE 78 mg/dl (70-220); POTASSIUM 5.6 mmol/L (3.5-5.1); SODIUM 146 mmol/L (135-144)
[2018-12-13] MEDS: SEVELAMER CARBONATE 800 MG TABLET PO ×3 (07:55→16:50)
[2018-12-13] MEDS: MUPIROCIN 2% 22 GM OINT TOP ×2 (08:55→21:00)
[2018-12-13] MEDS: MIDODRINE 5 MG TAB PO ×3 (08:55→16:50)
[2018-12-14] MEDS: DIPHENHYDRAMINE 50 MG INJ IV ×4 (05:01→23:39)
[2018-12-14] MEDS: morphine 2 MG INJ IV ×4 (05:01→23:39)
[2018-12-14] MEDS: OXACILLIN 2 GM in SOD CHLORIDE 0.9% 50 ML IVPB ×4 (05:02→23:39)
[2018-12-14 06:26] LABS: ADD MAN DIFF? NO
[2018-12-14 06:28] LABS: WHITE BLOOD COUNT 5.6 10^3/ul (4.8-10.8)
[2018-12-14 06:28] LABS: BASOPHIL # 0.1 10^3/ul (0.0-0.1); BASOPHILS % 1.1 % (0.0-2.0); EOSINOPHILS # 0.2 10^3/ul (0.0-0.5); EOSINOPHILS % 3.8 % (0.0-7.0); HEMATOCRIT 34.4 % (37.0-47.0); HEMOGLOBIN 10.8 g/dl (12.0-16.0); LYMPHOCYTES # 1.6 10^3/ul (0.8-2.9); MEAN CORPUSCULAR HEMOGLOBIN 31.5 pg (29.0-33.0); MEAN CORPUSCULAR HGB CONC 31.4 g/dl (32.0-37.0); MEAN CORPUSCULAR VOLUME 100.3 fl (82.0-101.0); MEAN PLATELET VOLUME 9.9 fl (7.4-10.4); MONOCYTE # 0.5 10^3/ul (0.3-0.9); MONOCYTES % 9.3 % (0.0-11.0); NEUTROPHIL # 3.2 10^3/ul (1.6-7.5); NEUTROPHILS % 57.4 % (39.0-77.0); PLATELET COUNT 295 10^3/UL (140-415); RED BLOOD COUNT 3.43 10^6/ul (4.20-5.40)
[2018-12-14 06:59] LABS: ANION GAP 16 (5-13); BLOOD UREA NITROGEN 49 mg/dl (7-20); CALCIUM 8.6 mg/dl (8.4-10.2); CARBON DIOXIDE 23 mmol/L (21-31); CHLORIDE 106 mmol/L (97-110); Estimated GFR 5 mL/min (>60); GLUCOSE 74 mg/dl (70-220); POTASSIUM 5.4 mmol/L (3.5-5.1); SODIUM 145 mmol/L (135-144)
[2018-12-14] MEDS: MIDODRINE 5 MG TAB PO ×3 (08:11→17:27)
[2018-12-14] MEDS: SEVELAMER CARBONATE 800 MG TABLET PO ×3 (08:11→17:27)
[2018-12-14] MEDS: MUPIROCIN 2% 22 GM OINT TOP ×2 (08:12→21:00)
[2018-12-14] MEDS: HEPARIN 1000 UNITS/ML 10 ML INJ CATHETER (12:31)
[2018-12-14] MEDS: EPOETIN ALFA-EPBX (ESRD) 10,000 UNIT/ML VIAL SC (17:00)
[2018-12-15] MEDS: morphine 2 MG INJ IV ×4 (05:22→23:49)
[2018-12-15] MEDS: DIPHENHYDRAMINE 50 MG INJ IV ×4 (05:22→23:49)
[2018-12-15] MEDS: OXACILLIN 2 GM in SOD CHLORIDE 0.9% 50 ML IVPB ×4 (05:22→23:50)
[2018-12-15 06:07] LABS: ADD MAN DIFF? NO
[2018-12-15 06:13] LABS: WHITE BLOOD COUNT 5.7 10^3/ul (4.8-10.8)
[2018-12-15 06:13] LABS: BASOPHIL # 0.1 10^3/ul (0.0-0.1); BASOPHILS % 1.2 % (0.0-2.0); EOSINOPHILS # 0.2 10^3/ul (0.0-0.5); EOSINOPHILS % 3.7 % (0.0-7.0); HEMATOCRIT 35.4 % (37.0-47.0); HEMOGLOBIN 11.3 g/dl (12.0-16.0); LYMPHOCYTES # 1.5 10^3/ul (0.8-2.9); LYMPHOCYTES % 26.8 % (15.0-51.0); MEAN CORPUSCULAR HEMOGLOBIN 31.5 pg (29.0-33.0); MEAN CORPUSCULAR HGB CONC 31.9 g/dl (32.0-37.0); MEAN CORPUSCULAR VOLUME 98.6 fl (82.0-101.0); MEAN PLATELET VOLUME 9.7 fl (7.4-10.4); MONOCYTE # 0.5 10^3/ul (0.3-0.9); MONOCYTES % 8.2 % (0.0-11.0); NEUTROPHIL # 3.4 10^3/ul (1.6-7.5); NEUTROPHILS % 59.7 % (39.0-77.0); PLATELET COUNT 296 10^3/UL (140-415); RED BLOOD COUNT 3.59 10^6/ul (4.20-5.40); RED CELL DISTRIBUTION WIDTH 17.1 % (11.5-14.5)
[2018-12-15 06:38] LABS: ANION GAP 16 (5-13); BLOOD UREA NITROGEN 40 mg/dl (7-20); CALCIUM 8.8 mg/dl (8.4-10.2); CARBON DIOXIDE 25 mmol/L (21-31); CHLORIDE 99 mmol/L (97-110); Estimated GFR 6 mL/min (>60); GLUCOSE 67 mg/dl (70-220); POTASSIUM 5.7 mmol/L (3.5-5.1); SODIUM 140 mmol/L (135-144)
[2018-12-15] MEDS: SEVELAMER CARBONATE 800 MG TABLET PO ×3 (09:11→17:58)
[2018-12-15] MEDS: MIDODRINE 5 MG TAB PO ×3 (09:13→16:03)
[2018-12-15] MEDS: MUPIROCIN 2% 22 GM OINT TOP ×2 (11:51→21:00)
[2018-12-15] MEDS: NA POLYST SULFON 15 GM/60 ML BTL PO (12:30)
[2018-12-16] MEDS: DIPHENHYDRAMINE 50 MG INJ IV ×4 (05:41→23:27)
[2018-12-16] MEDS: OXACILLIN 2 GM in SOD CHLORIDE 0.9% 50 ML IVPB ×4 (05:41→23:28)
[2018-12-16] MEDS: morphine 2 MG INJ IV ×4 (05:41→23:28)
[2018-12-16 08:00] LABS: ADD MAN DIFF? NO
[2018-12-16 08:09] LABS: WHITE BLOOD COUNT 5.9 10^3/ul (4.8-10.8)
[2018-12-16 08:09] LABS: BASOPHIL # 0.1 10^3/ul (0.0-0.1); BASOPHILS % 1.4 % (0.0-2.0); EOSINOPHILS # 0.2 10^3/ul (0.0-0.5); EOSINOPHILS % 3.1 % (0.0-7.0); HEMATOCRIT 34.1 % (37.0-47.0); HEMOGLOBIN 10.6 g/dl (12.0-16.0); LYMPHOCYTES # 1.4 10^3/ul (0.8-2.9); LYMPHOCYTES % 23.4 % (15.0-51.0); MEAN CORPUSCULAR HEMOGLOBIN 31.3 pg (29.0-33.0); MEAN CORPUSCULAR HGB CONC 31.1 g/dl (32.0-37.0); MEAN CORPUSCULAR VOLUME 100.6 fl (82.0-101.0); MEAN PLATELET VOLUME 10.1 fl (7.4-10.4); MONOCYTE # 0.4 10^3/ul (0.3-0.9); MONOCYTES % 6.8 % (0.0-11.0); NEUTROPHIL # 3.8 10^3/ul (1.6-7.5); NEUTROPHILS % 65.1 % (39.0-77.0); PLATELET COUNT 285 10^3/UL (140-415); RED BLOOD COUNT 3.39 10^6/ul (4.20-5.40); RED CELL DISTRIBUTION WIDTH 16.9 % (11.5-14.5)
[2018-12-16 08:26] LABS: ANION GAP 17 (5-13); BLOOD UREA NITROGEN 60 mg/dl (7-20); CALCIUM 8.5 mg/dl (8.4-10.2); CARBON DIOXIDE 23 mmol/L (21-31); CHLORIDE 102 mmol/L (97-110); CREATININE 10.49 mg/dl (0.44-1.00); Estimated GFR 4 mL/min (>60); GLUCOSE 74 mg/dl (70-220); SODIUM 142 mmol/L (135-144)
[2018-12-16 08:30] LABS: POTASSIUM 6.1 mmol/L (3.5-5.1)
[2018-12-16] MEDS: SEVELAMER CARBONATE 800 MG TABLET PO ×3 (08:33→17:30)
[2018-12-16] MEDS: MIDODRINE 5 MG TAB PO ×3 (08:34→17:00)
[2018-12-16] MEDS: NA POLYST SULFON 15 GM/60 ML BTL PO (09:00)
[2018-12-16] MEDS: MUPIROCIN 2% 22 GM OINT TOP ×2 (13:52→21:00)
[2018-12-16 14:41] LABS: ANION GAP 17 (5-13); BLOOD UREA NITROGEN 65 mg/dl (7-20); CALCIUM 8.5 mg/dl (8.4-10.2); CARBON DIOXIDE 24 mmol/L (21-31); CHLORIDE 99 mmol/L (97-110); CREATININE 10.96 mg/dl (0.44-1.00); Estimated GFR 4 mL/min (>60); GLUCOSE 82 mg/dl (70-220); POTASSIUM 5.5 mmol/L (3.5-5.1); SODIUM 140 mmol/L (135-144)
[2018-12-17] MEDS: OXACILLIN 2 GM in SOD CHLORIDE 0.9% 50 ML IVPB ×4 (06:13→23:46)
[2018-12-17] MEDS: DIPHENHYDRAMINE 50 MG INJ IV ×4 (06:13→23:46)
[2018-12-17] MEDS: morphine 2 MG INJ IV ×3 (06:13→21:40)
[2018-12-17 06:59] LABS: ADD MAN DIFF? NO
[2018-12-17 07:07] LABS: BASOPHIL # 0.1 10^3/ul (0.0-0.1); BASOPHILS % 1.1 % (0.0-2.0); EOSINOPHILS # 0.2 10^3/ul (0.0-0.5); EOSINOPHILS % 3.6 % (0.0-7.0); HEMATOCRIT 34.2 % (37.0-47.0); HEMOGLOBIN 10.5 g/dl (12.0-16.0); LYMPHOCYTES # 1.6 10^3/ul (0.8-2.9); LYMPHOCYTES % 29.9 % (15.0-51.0); MEAN CORPUSCULAR HEMOGLOBIN 30.8 pg (29.0-33.0); MEAN CORPUSCULAR HGB CONC 30.7 g/dl (32.0-37.0); MEAN CORPUSCULAR VOLUME 100.3 fl (82.0-101.0); MEAN PLATELET VOLUME 10.1 fl (7.4-10.4); MONOCYTE # 0.4 10^3/ul (0.3-0.9); MONOCYTES % 6.9 % (0.0-11.0); NEUTROPHIL # 3.2 10^3/ul (1.6-7.5); NEUTROPHILS % 58.1 % (39.0-77.0); PLATELET COUNT 236 10^3/UL (140-415); RED BLOOD COUNT 3.41 10^6/ul (4.20-5.40); RED CELL DISTRIBUTION WIDTH 17.2 % (11.5-14.5)
[2018-12-17 07:07] LABS: WHITE BLOOD COUNT 5.5 10^3/ul (4.8-10.8)
[2018-12-17 07:24] LABS: ANION GAP 20 (5-13); BLOOD UREA NITROGEN 74 mg/dl (7-20); CALCIUM 8.4 mg/dl (8.4-10.2); CARBON DIOXIDE 21 mmol/L (21-31); CHLORIDE 101 mmol/L (97-110); CREATININE 12.22 mg/dl (0.44-1.00); Estimated GFR 4 mL/min (>60); GLUCOSE 69 mg/dl (70-220); SODIUM 142 mmol/L (135-144)
[2018-12-17 07:32] LABS: POTASSIUM 6.4 mmol/L (3.5-5.1)
[2018-12-17] MEDS: SEVELAMER CARBONATE 800 MG TABLET PO ×3 (07:55→17:46)
[2018-12-17] MEDS: NA BICARBONATE 8.4% 50 ML SYG IV (08:12)
[2018-12-17] MEDS: MUPIROCIN 2% 22 GM OINT TOP ×2 (08:12→21:39)
[2018-12-17] MEDS: MIDODRINE 5 MG TAB PO ×3 (08:13→17:00)
[2018-12-17] MEDS: DEXTROSE 50% 50 ML SYRINGE IV (09:20)
[2018-12-17] MEDS: INSULIN REGULAR, HUMAN 100 UNIT/1 ML 3ML VIAL IVP (09:32)
[2018-12-17] MEDS: ONDANSETRON 4 MG INJ IV (09:33)
[2018-12-17] MEDS ORDERED: HEPARIN 1000 UNITS/ML 10 ML INJ (09:59)
[2018-12-17] MEDS ORDERED: LIDOCAINE 1% (MDV) 20 ML INJ ×2 (09:59→11:32)
[2018-12-17] MEDS ORDERED: FENTAnyl 50 MCG/ML VIAL (10:00)
[2018-12-17] MEDS ORDERED: MIDAZOLAM 1 MG/ML 2 ML INJ (10:00)
[2018-12-17] MEDS ORDERED: IODIXANOL LOCM 50 ML BTL (11:33)
[2018-12-17] MEDS: FENTAnyl 50 MCG/ML VIAL (12:28)
[2018-12-17] MEDS: LIDOCAINE 1% (MDV) 20 ML INJ (12:28)
[2018-12-17] MEDS: HEPARIN 1000 UNITS/ML 10 ML INJ CATHETER (16:11)
[2018-12-17] MEDS: EPOETIN ALFA-EPBX (ESRD) 10,000 UNIT/ML VIAL SC (17:46)
[2018-12-18] MEDS: morphine 2 MG INJ IV ×4 (04:38→18:33)
[2018-12-18] MEDS: OXACILLIN 2 GM in SOD CHLORIDE 0.9% 50 ML IVPB ×4 (04:39→22:52)
[2018-12-18 07:02] LABS: ADD MAN DIFF? NO
[2018-12-18 07:04] LABS: WHITE BLOOD COUNT 5.7 10^3/ul (4.8-10.8)
[2018-12-18 07:04] LABS: BASOPHILS % 0.7 % (0.0-2.0); EOSINOPHILS # 0.1 10^3/ul (0.0-0.5); EOSINOPHILS % 1.8 % (0.0-7.0); HEMATOCRIT 32.3 % (37.0-47.0); HEMOGLOBIN 10.1 g/dl (12.0-16.0); LYMPHOCYTES % 18.2 % (15.0-51.0); MEAN CORPUSCULAR HEMOGLOBIN 31.7 pg (29.0-33.0); MEAN CORPUSCULAR HGB CONC 31.3 g/dl (32.0-37.0); MEAN CORPUSCULAR VOLUME 101.3 fl (82.0-101.0); MEAN PLATELET VOLUME 10.1 fl (7.4-10.4); MONOCYTE # 0.4 10^3/ul (0.3-0.9); MONOCYTES % 6.9 % (0.0-11.0); NEUTROPHIL # 4.1 10^3/ul (1.6-7.5); PLATELET COUNT 207 10^3/UL (140-415); RED BLOOD COUNT 3.19 10^6/ul (4.20-5.40); RED CELL DISTRIBUTION WIDTH 17.2 % (11.5-14.5)
[2018-12-18 07:32] LABS: ANION GAP 12 (5-13); BLOOD UREA NITROGEN 40 mg/dl (7-20); CALCIUM 7.8 mg/dl (8.4-10.2); CARBON DIOXIDE 28 mmol/L (21-31); CHLORIDE 100 mmol/L (97-110); CREATININE 7.59 mg/dl (0.44-1.00); Estimated GFR 6 mL/min (>60); GLUCOSE 75 mg/dl (70-220); SODIUM 140 mmol/L (135-144)
[2018-12-18 07:37] LABS: POTASSIUM 6.7 mmol/L (3.5-5.1)
[2018-12-18] MEDS ORDERED: NA POLYST SULFON 15 GM/60 ML BTL PO (07:53)
[2018-12-18] MEDS: MIDODRINE 5 MG TAB PO ×3 (08:26→17:00)
[2018-12-18] MEDS: SEVELAMER CARBONATE 800 MG TABLET PO ×3 (08:27→17:31)
[2018-12-18] MEDS: MUPIROCIN 2% 22 GM OINT TOP ×2 (08:27→22:50)
[2018-12-18] MEDS: DIPHENHYDRAMINE 50 MG INJ IV ×3 (12:08→23:42)
[2018-12-18] MEDS: HEPARIN 1000 UNITS/ML 10 ML INJ CATHETER (14:54)
[2018-12-18] MEDS: ACETAMINOPHEN 325 MG TAB PO (18:01)
[2018-12-18] MEDS: morphine 4 MG/ML VIAL IV (22:52)
[2018-12-19] MEDS: OXACILLIN 2 GM in SOD CHLORIDE 0.9% 50 ML IVPB ×4 (05:16→22:53)
[2018-12-19] MEDS: morphine 4 MG/ML VIAL IV ×5 (05:19→22:54)
[2018-12-19] MEDS: DIPHENHYDRAMINE 50 MG INJ IV ×5 (06:03→23:37)
[2018-12-19 07:18] LABS: ADD MAN DIFF? NO
[2018-12-19 07:23] LABS: WHITE BLOOD COUNT 5.4 10^3/ul (4.8-10.8)
[2018-12-19 07:23] LABS: BASOPHIL # 0.1 10^3/ul (0.0-0.1); BASOPHILS % 1.1 % (0.0-2.0); EOSINOPHILS # 0.2 10^3/ul (0.0-0.5); EOSINOPHILS % 2.8 % (0.0-7.0); HEMOGLOBIN 10.3 g/dl (12.0-16.0); LYMPHOCYTES # 1.5 10^3/ul (0.8-2.9); LYMPHOCYTES % 27.2 % (15.0-51.0); MEAN CORPUSCULAR HEMOGLOBIN 31.7 pg (29.0-33.0); MEAN CORPUSCULAR HGB CONC 31.2 g/dl (32.0-37.0); MEAN CORPUSCULAR VOLUME 101.5 fl (82.0-101.0); MEAN PLATELET VOLUME 10.8 fl (7.4-10.4); MONOCYTE # 0.5 10^3/ul (0.3-0.9); MONOCYTES % 8.9 % (0.0-11.0); NEUTROPHIL # 3.2 10^3/ul (1.6-7.5); NEUTROPHILS % 59.8 % (39.0-77.0); PLATELET COUNT 190 10^3/UL (140-415); RED BLOOD COUNT 3.25 10^6/ul (4.20-5.40); RED CELL DISTRIBUTION WIDTH 16.9 % (11.5-14.5)
[2018-12-19 07:58] LABS: ANION GAP 12 (5-13); BLOOD UREA NITROGEN 32 mg/dl (7-20); CALCIUM 8.4 mg/dl (8.4-10.2); CARBON DIOXIDE 24 mmol/L (21-31); CHLORIDE 105 mmol/L (97-110); CREATININE 5.93 mg/dl (0.44-1.00); Estimated GFR 8 mL/min (>60); GLUCOSE 68 mg/dl (70-220); SODIUM 141 mmol/L (135-144)
[2018-12-19 08:04] LABS: POTASSIUM 6.3 mmol/L (3.5-5.1)
[2018-12-19] MEDS: MUPIROCIN 2% 22 GM OINT TOP ×2 (08:42→19:41)
[2018-12-19] MEDS: SEVELAMER CARBONATE 800 MG TABLET PO ×3 (08:42→18:55)
[2018-12-19] MEDS: MIDODRINE 5 MG TAB PO ×3 (08:42→18:56)
[2018-12-19] MEDS: HEPARIN 1000 UNITS/ML 10 ML INJ CATHETER (11:48)
[2018-12-19 16:22] LABS: INR 1.16; PROTIME 14.9 Sec (11.9-14.9); PT RATIO 1.2
[2018-12-19 16:24] LABS: ANION GAP 13 (5-13); BLOOD UREA NITROGEN 14 mg/dl (7-20); CALCIUM 9.6 mg/dl (8.4-10.2); CARBON DIOXIDE 31 mmol/L (21-31); CHLORIDE 95 mmol/L (97-110); CREATININE 3.62 mg/dl (0.44-1.00); Estimated GFR 14 mL/min (>60); GLUCOSE 111 mg/dl (70-220); PARTIAL THROMBOPLASTIN TIME 66.9 Sec (23.0-35.0); POTASSIUM 4.8 mmol/L (3.5-5.1); SODIUM 139 mmol/L (135-144)
[2018-12-19] MEDS: EPOETIN ALFA-EPBX (ESRD) 10,000 UNIT/ML VIAL SC (18:55)
[2018-12-20] MEDS: morphine 4 MG/ML VIAL IV ×4 (03:07→21:22)
[2018-12-20] MEDS: DIPHENHYDRAMINE 50 MG INJ IV ×5 (04:09→21:22)
[2018-12-20] MEDS: OXACILLIN 2 GM in SOD CHLORIDE 0.9% 50 ML IVPB ×3 (06:12→17:03)
[2018-12-20] MEDS ORDERED: MIDAZOLAM 1 MG/ML 2 ML INJ (07:53)
[2018-12-20] MEDS ORDERED: FENTAnyl 50 MCG/ML VIAL (07:53)
[2018-12-20] MEDS ORDERED: LIDOCAINE 1% (MDV) 20 ML INJ ×2 (07:54→08:45)
[2018-12-20] MEDS ORDERED: HEPARIN 1000 UNITS/ML 10 ML INJ (07:54)
[2018-12-20] MEDS: SEVELAMER CARBONATE 800 MG TABLET PO ×3 (07:55→17:02)
[2018-12-20] MEDS ORDERED: DIPHENHYDRAMINE 50 MG INJ (08:19)
[2018-12-20] MEDS ORDERED: IODIXANOL LOCM 100 ML BTL (08:46)
[2018-12-20 09:15] LABS: ADD MAN DIFF? NO
[2018-12-20 09:20] LABS: BASOPHIL # 0.1 10^3/ul (0.0-0.1); BASOPHILS % 0.9 % (0.0-2.0); EOSINOPHILS # 0.4 10^3/ul (0.0-0.5); EOSINOPHILS % 4.1 % (0.0-7.0); HEMATOCRIT 38.4 % (37.0-47.0); HEMOGLOBIN 11.9 g/dl (12.0-16.0); LYMPHOCYTES # 2.6 10^3/ul (0.8-2.9); LYMPHOCYTES % 29.6 % (15.0-51.0); MEAN CORPUSCULAR HEMOGLOBIN 31.3 pg (29.0-33.0); MEAN CORPUSCULAR VOLUME 101.1 fl (82.0-101.0); MEAN PLATELET VOLUME 11.2 fl (7.4-10.4); MONOCYTE # 0.8 10^3/ul (0.3-0.9); MONOCYTES % 8.7 % (0.0-11.0); NEUTROPHIL # 4.9 10^3/ul (1.6-7.5); NEUTROPHILS % 56.5 % (39.0-77.0); PLATELET COUNT 215 10^3/UL (140-415); RED CELL DISTRIBUTION WIDTH 16.8 % (11.5-14.5)
[2018-12-20 09:20] LABS: WHITE BLOOD COUNT 8.7 10^3/ul (4.8-10.8)
[2018-12-20] MEDS: morphine 2 MG INJ IV (09:38)
[2018-12-20] MEDS: SOD CHLORIDE 0.9% 250 ML IV (09:39)
[2018-12-20 09:40] LABS: ANION GAP 13 (5-13); BLOOD UREA NITROGEN 41 mg/dl (7-20); CARBON DIOXIDE 27 mmol/L (21-31); CHLORIDE 99 mmol/L (97-110); CREATININE 5.97 mg/dl (0.44-1.00); Estimated GFR 8 mL/min (>60); GLUCOSE 82 mg/dl (70-220); SODIUM 139 mmol/L (135-144)
[2018-12-20 09:41] LABS: INR 1.19; POTASSIUM 5.8 mmol/L (3.5-5.1); PROTIME 15.2 Sec (11.9-14.9); PT RATIO 1.2
[2018-12-20 09:42] LABS: PARTIAL THROMBOPLASTIN TIME 38.8 Sec (23.0-35.0)
[2018-12-20] MEDS: MIDODRINE 5 MG TAB PO ×3 (10:16→17:03)
[2018-12-20] MEDS: MUPIROCIN 2% 22 GM OINT TOP ×2 (10:17→20:10)
[2018-12-20] MEDS: DESMOPRESSIN 20 MCG in SOD CHLORIDE 0.9% 50 ML IVPB (15:38)
[2018-12-20 17:07] LABS: ANION GAP 14 (5-13); BLOOD UREA NITROGEN 48 mg/dl (7-20); CALCIUM 8.6 mg/dl (8.4-10.2); CARBON DIOXIDE 27 mmol/L (21-31); CHLORIDE 98 mmol/L (97-110); CREATININE 6.87 mg/dl (0.44-1.00); Estimated GFR 7 mL/min (>60); GLUCOSE 109 mg/dl (70-220); POTASSIUM 5.2 mmol/L (3.5-5.1); SODIUM 139 mmol/L (135-144)
[2018-12-20] MEDS: NA POLYST SULFON 15 GM/60 ML BTL PO (17:47)
[2018-12-20] MEDS: ONDANSETRON 4 MG INJ IV (20:10)
[2018-12-21] MEDS: OXACILLIN 2 GM in SOD CHLORIDE 0.9% 50 ML IVPB ×4 (00:13→18:35)
[2018-12-21] MEDS: morphine 4 MG/ML VIAL IV ×6 (01:40→22:34)
[2018-12-21] MEDS: DIPHENHYDRAMINE 50 MG INJ IV ×6 (01:40→22:34)
[2018-12-21 05:47] LABS: ADD MAN DIFF? NO
[2018-12-21 05:49] LABS: BASOPHIL # 0.1 10^3/ul (0.0-0.1); BASOPHILS % 1.1 % (0.0-2.0); EOSINOPHILS # 0.3 10^3/ul (0.0-0.5); EOSINOPHILS % 3.3 % (0.0-7.0); HEMOGLOBIN 10.5 g/dl (12.0-16.0); LYMPHOCYTES # 2.1 10^3/ul (0.8-2.9); LYMPHOCYTES % 24.6 % (15.0-51.0); MEAN CORPUSCULAR HEMOGLOBIN 31.3 pg (29.0-33.0); MEAN CORPUSCULAR HGB CONC 30.9 g/dl (32.0-37.0); MEAN CORPUSCULAR VOLUME 101.5 fl (82.0-101.0); MEAN PLATELET VOLUME 11.4 fl (7.4-10.4); MONOCYTE # 0.7 10^3/ul (0.3-0.9); MONOCYTES % 8.1 % (0.0-11.0); NEUTROPHIL # 5.3 10^3/ul (1.6-7.5); NEUTROPHILS % 62.7 % (39.0-77.0); PLATELET COUNT 174 10^3/UL (140-415); RED BLOOD COUNT 3.35 10^6/ul (4.20-5.40); RED CELL DISTRIBUTION WIDTH 17.2 % (11.5-14.5)
[2018-12-21 05:49] LABS: WHITE BLOOD COUNT 8.5 10^3/ul (4.8-10.8)
[2018-12-21 06:34] LABS: ANION GAP 14 (5-13); BLOOD UREA NITROGEN 61 mg/dl (7-20); CALCIUM 8.5 mg/dl (8.4-10.2); CARBON DIOXIDE 27 mmol/L (21-31); CHLORIDE 97 mmol/L (97-110); Estimated GFR 6 mL/min (>60); GLUCOSE 87 mg/dl (70-220); SODIUM 138 mmol/L (135-144)
[2018-12-21 07:21] LABS: POTASSIUM 6.7 mmol/L (3.5-5.1)
[2018-12-21] MEDS: MUPIROCIN 2% 22 GM OINT TOP ×2 (09:00→21:42)
[2018-12-21] MEDS: MIDODRINE 5 MG TAB PO ×3 (09:46→18:20)
[2018-12-21] MEDS: SEVELAMER CARBONATE 800 MG TABLET PO ×3 (09:46→18:20)
[2018-12-21] MEDS: HEPARIN 1000 UNITS/ML 10 ML INJ CATHETER (13:13)
[2018-12-21] MEDS: EPOETIN ALFA-EPBX (ESRD) 10,000 UNIT/ML VIAL SC (18:38)
[2018-12-22] MEDS: OXACILLIN 2 GM in SOD CHLORIDE 0.9% 50 ML IVPB ×4 (00:28→17:16)
[2018-12-22] MEDS: morphine 4 MG/ML VIAL IV ×5 (05:47→22:59)
[2018-12-22] MEDS: DIPHENHYDRAMINE 50 MG INJ IV ×5 (05:48→22:59)
[2018-12-22 06:04] LABS: ADD MAN DIFF? NO
[2018-12-22 06:10] LABS: WHITE BLOOD COUNT 8.1 10^3/ul (4.8-10.8)
[2018-12-22 06:10] LABS: BASOPHIL # 0.1 10^3/ul (0.0-0.1); EOSINOPHILS # 0.4 10^3/ul (0.0-0.5); EOSINOPHILS % 4.7 % (0.0-7.0); HEMATOCRIT 38.2 % (37.0-47.0); HEMOGLOBIN 11.6 g/dl (12.0-16.0); LYMPHOCYTES # 1.9 10^3/ul (0.8-2.9); LYMPHOCYTES % 23.2 % (15.0-51.0); MEAN CORPUSCULAR HEMOGLOBIN 31.4 pg (29.0-33.0); MEAN CORPUSCULAR HGB CONC 30.4 g/dl (32.0-37.0); MEAN CORPUSCULAR VOLUME 103.2 fl (82.0-101.0); MEAN PLATELET VOLUME 11.5 fl (7.4-10.4); MONOCYTE # 0.7 10^3/ul (0.3-0.9); MONOCYTES % 8.8 % (0.0-11.0); NEUTROPHILS % 61.9 % (39.0-77.0); PLATELET COUNT 209 10^3/UL (140-415); RED CELL DISTRIBUTION WIDTH 17.6 % (11.5-14.5)
[2018-12-22 07:00] LABS: ANION GAP 16 (5-13); BLOOD UREA NITROGEN 54 mg/dl (7-20); CALCIUM 8.9 mg/dl (8.4-10.2); CARBON DIOXIDE 24 mmol/L (21-31); CHLORIDE 98 mmol/L (97-110); CREATININE 6.56 mg/dl (0.44-1.00); Estimated GFR 7 mL/min (>60); GLUCOSE 70 mg/dl (70-220); SODIUM 138 mmol/L (135-144)
[2018-12-22 07:05] LABS: POTASSIUM 6.9 mmol/L (3.5-5.1)
[2018-12-22] MEDS: SEVELAMER CARBONATE 800 MG TABLET PO ×3 (08:13→17:15)
[2018-12-22] MEDS: MIDODRINE 5 MG TAB PO ×3 (08:13→17:15)
[2018-12-22] MEDS: MUPIROCIN 2% 22 GM OINT TOP ×2 (08:16→20:54)
[2018-12-22] MEDS: NA POLYST SULFON 15 GM/60 ML BTL PO (10:40)
[2018-12-22] MEDS: METOPROLOL 5 MG INJ IV (11:52)
[2018-12-22] MEDS: HEPARIN 1000 UNITS/ML 10 ML INJ CATHETER (12:57)
[2018-12-23] MEDS: OXACILLIN 2 GM in SOD CHLORIDE 0.9% 50 ML IVPB ×5 (00:19→23:14)
[2018-12-23] MEDS: DIPHENHYDRAMINE 50 MG INJ IV ×6 (01:57→21:57)
[2018-12-23] MEDS: morphine 4 MG/ML VIAL IV ×6 (01:57→21:57)
[2018-12-23 05:56] LABS: ADD MAN DIFF? NO
[2018-12-23 06:04] LABS: BASOPHIL # 0.1 10^3/ul (0.0-0.1); BASOPHILS % 1.1 % (0.0-2.0); EOSINOPHILS # 0.3 10^3/ul (0.0-0.5); EOSINOPHILS % 3.5 % (0.0-7.0); LYMPHOCYTES # 1.6 10^3/ul (0.8-2.9); LYMPHOCYTES % 19.1 % (15.0-51.0); MEAN CORPUSCULAR HEMOGLOBIN 31.3 pg (29.0-33.0); MEAN CORPUSCULAR HGB CONC 30.8 g/dl (32.0-37.0); MEAN CORPUSCULAR VOLUME 101.6 fl (82.0-101.0); MEAN PLATELET VOLUME 11.6 fl (7.4-10.4); MONOCYTE # 0.7 10^3/ul (0.3-0.9); MONOCYTES % 8.2 % (0.0-11.0); NEUTROPHIL # 5.8 10^3/ul (1.6-7.5); NEUTROPHILS % 67.7 % (39.0-77.0); PLATELET COUNT 214 10^3/UL (140-415); RED BLOOD COUNT 3.84 10^6/ul (4.20-5.40); RED CELL DISTRIBUTION WIDTH 17.6 % (11.5-14.5)
[2018-12-23 06:04] LABS: WHITE BLOOD COUNT 8.6 10^3/ul (4.8-10.8)
[2018-12-23 06:37] LABS: ANION GAP 19 (5-13); BLOOD UREA NITROGEN 50 mg/dl (7-20); CALCIUM 9.3 mg/dl (8.4-10.2); CARBON DIOXIDE 26 mmol/L (21-31); CHLORIDE 95 mmol/L (97-110); Estimated GFR 7 mL/min (>60); GLUCOSE 98 mg/dl (70-220); POTASSIUM 4.9 mmol/L (3.5-5.1); SODIUM 140 mmol/L (135-144)
[2018-12-23] MEDS: MIDODRINE 5 MG TAB PO ×3 (08:20→17:57)
[2018-12-23] MEDS: SEVELAMER CARBONATE 800 MG TABLET PO ×3 (08:20→17:57)
[2018-12-23] MEDS: MUPIROCIN 2% 22 GM OINT TOP ×2 (08:21→21:57)
[2018-12-24] MEDS: DIPHENHYDRAMINE 50 MG INJ IV ×4 (02:05→21:13)
[2018-12-24] MEDS: morphine 4 MG/ML VIAL IV ×4 (02:05→21:10)
[2018-12-24] MEDS: OXACILLIN 2 GM in SOD CHLORIDE 0.9% 50 ML IVPB ×3 (05:57→17:33)
[2018-12-24] MEDS: SEVELAMER CARBONATE 800 MG TABLET PO ×4 (08:15→17:55)
[2018-12-24] MEDS: ONDANSETRON 4 MG INJ IV (08:16)
[2018-12-24] MEDS: MUPIROCIN 2% 22 GM OINT TOP ×2 (08:19→21:16)
[2018-12-24] MEDS: MIDODRINE 5 MG TAB PO ×3 (09:13→17:32)
[2018-12-24] MEDS: ALTEPLASE (CATHFLO) 2 MG INJ CATHETER (12:36)
[2018-12-24] MEDS: LORAZEPAM 2 MG INJ IV (13:33)
[2018-12-24] MEDS: SOD CHLORIDE 0.9% 250 ML IV (14:31)
[2018-12-25] MEDS: OXACILLIN 2 GM in SOD CHLORIDE 0.9% 50 ML IVPB ×4 (00:39→18:02)
[2018-12-25] MEDS: morphine 4 MG/ML VIAL IV ×6 (01:09→22:11)
[2018-12-25] MEDS: DIPHENHYDRAMINE 50 MG INJ IV ×6 (01:09→22:11)
[2018-12-25 06:44] LABS: ADD MAN DIFF? NO
[2018-12-25 06:48] LABS: WHITE BLOOD COUNT 7.4 10^3/ul (4.8-10.8)
[2018-12-25 06:48] LABS: BASOPHIL # 0.1 10^3/ul (0.0-0.1); BASOPHILS % 1.4 % (0.0-2.0); EOSINOPHILS # 0.5 10^3/ul (0.0-0.5); EOSINOPHILS % 6.3 % (0.0-7.0); HEMATOCRIT 40.4 % (37.0-47.0); HEMOGLOBIN 12.6 g/dl (12.0-16.0); LYMPHOCYTES # 1.9 10^3/ul (0.8-2.9); LYMPHOCYTES % 26.3 % (15.0-51.0); MEAN CORPUSCULAR HEMOGLOBIN 31.9 pg (29.0-33.0); MEAN CORPUSCULAR HGB CONC 31.2 g/dl (32.0-37.0); MEAN CORPUSCULAR VOLUME 102.3 fl (82.0-101.0); MEAN PLATELET VOLUME 11.5 fl (7.4-10.4); MONOCYTE # 0.7 10^3/ul (0.3-0.9); MONOCYTES % 9.4 % (0.0-11.0); NEUTROPHIL # 4.1 10^3/ul (1.6-7.5); NEUTROPHILS % 56.2 % (39.0-77.0); PLATELET COUNT 227 10^3/UL (140-415); RED BLOOD COUNT 3.95 10^6/ul (4.20-5.40)
[2018-12-25 07:32] LABS: ANION GAP 21 (5-13); BLOOD UREA NITROGEN 64 mg/dl (7-20); CALCIUM 8.8 mg/dl (8.4-10.2); CARBON DIOXIDE 23 mmol/L (21-31); CHLORIDE 94 mmol/L (97-110); CREATININE 8.34 mg/dl (0.44-1.00); Estimated GFR 5 mL/min (>60); GLUCOSE 73 mg/dl (70-220); POTASSIUM 5.8 mmol/L (3.5-5.1); SODIUM 138 mmol/L (135-144)
[2018-12-25] MEDS: SEVELAMER CARBONATE 800 MG TABLET PO ×3 (09:25→18:02)
[2018-12-25] MEDS: MIDODRINE 5 MG TAB PO ×3 (09:26→18:02)
[2018-12-25] MEDS: MUPIROCIN 2% 22 GM OINT TOP ×2 (09:26→21:14)
[2018-12-25] MEDS: NA POLYST SULFON 15 GM/60 ML BTL PO (14:05)
[2018-12-26] MEDS: OXACILLIN 2 GM in SOD CHLORIDE 0.9% 50 ML IVPB ×5 (00:35→18:15)
[2018-12-26] MEDS: DIPHENHYDRAMINE 50 MG INJ IV ×6 (02:13→22:18)
[2018-12-26] MEDS: morphine 4 MG/ML VIAL IV ×6 (02:14→22:18)
[2018-12-26 06:58] LABS: ADD MAN DIFF? NO
[2018-12-26 07:05] LABS: BASOPHIL # 0.1 10^3/ul (0.0-0.1); EOSINOPHILS # 0.7 10^3/ul (0.0-0.5); EOSINOPHILS % 9.3 % (0.0-7.0); HEMATOCRIT 37.9 % (37.0-47.0); HEMOGLOBIN 11.9 g/dl (12.0-16.0); LYMPHOCYTES # 1.7 10^3/ul (0.8-2.9); LYMPHOCYTES % 22.5 % (15.0-51.0); MEAN CORPUSCULAR HEMOGLOBIN 31.9 pg (29.0-33.0); MEAN CORPUSCULAR HGB CONC 31.4 g/dl (32.0-37.0); MEAN CORPUSCULAR VOLUME 101.6 fl (82.0-101.0); MEAN PLATELET VOLUME 11.3 fl (7.4-10.4); MONOCYTE # 0.7 10^3/ul (0.3-0.9); MONOCYTES % 9.1 % (0.0-11.0); NEUTROPHIL # 4.3 10^3/ul (1.6-7.5); NEUTROPHILS % 57.8 % (39.0-77.0); PLATELET COUNT 246 10^3/UL (140-415); RED BLOOD COUNT 3.73 10^6/ul (4.20-5.40); RED CELL DISTRIBUTION WIDTH 17.6 % (11.5-14.5)
[2018-12-26 07:05] LABS: WHITE BLOOD COUNT 7.3 10^3/ul (4.8-10.8)
[2018-12-26 07:26] LABS: MAGNESIUM 3.5 mg/dl (1.7-2.5)
[2018-12-26 07:39] LABS: ALANINE AMINOTRANSFERASE 83 IU/L (13-69); ALBUMIN 4.2 g/dl (3.3-4.9); ALBUMIN/GLOBULIN RATIO 1.16; ALKALINE PHOSPHATASE 100 IU/L (42-121); ANION GAP 22 (5-13); ASPARTATE AMINO TRANSFERASE 73 IU/L (15-46); BILIRUBIN,INDIRECT 0.1 mg/dl (0-1.1); BILIRUBIN,TOTAL 0.1 mg/dl (0.2-1.3); BLOOD UREA NITROGEN 87 mg/dl (7-20); CALCIUM 8.5 mg/dl (8.4-10.2); CARBON DIOXIDE 23 mmol/L (21-31); CHLORIDE 94 mmol/L (97-110); CREATININE 10.73 mg/dl (0.44-1.00); Estimated GFR 4 mL/min (>60); GLUCOSE 66 mg/dl (70-220); SODIUM 139 mmol/L (135-144); TOTAL PROTEIN 7.8 g/dl (6.1-8.1)
[2018-12-26] MEDS: MUPIROCIN 2% 22 GM OINT TOP ×2 (08:09→21:56)
[2018-12-26] MEDS: SEVELAMER CARBONATE 800 MG TABLET PO ×3 (08:09→17:32)
[2018-12-26] MEDS: MIDODRINE 5 MG TAB PO ×3 (08:09→17:32)
[2018-12-26] MEDS: HEPARIN 1000 UNITS/ML 10 ML INJ CATHETER (14:27)
[2018-12-26] MEDS: EPOETIN ALFA-EPBX (ESRD) 3,000 UNIT/ML VIAL SC (17:36)
[2018-12-26] MEDS: ONDANSETRON 4 MG INJ IV (22:21)
[2018-12-27] MEDS: OXACILLIN 2 GM in SOD CHLORIDE 0.9% 50 ML IVPB ×4 (00:22→17:34)
[2018-12-27] MEDS: morphine 4 MG/ML VIAL IV ×6 (02:20→22:25)
[2018-12-27] MEDS: DIPHENHYDRAMINE 50 MG INJ IV ×6 (02:21→22:21)
[2018-12-27 06:33] LABS: ANION GAP 19 (5-13); BLOOD UREA NITROGEN 54 mg/dl (7-20); CALCIUM 8.8 mg/dl (8.4-10.2); CARBON DIOXIDE 23 mmol/L (21-31); CHLORIDE 98 mmol/L (97-110); CREATININE 8.09 mg/dl (0.44-1.00); Estimated GFR 6 mL/min (>60); GLUCOSE 71 mg/dl (70-220); SODIUM 140 mmol/L (135-144)
[2018-12-27 06:41] LABS: POTASSIUM 6.2 mmol/L (3.5-5.1)
[2018-12-27] MEDS: MIDODRINE 5 MG TAB PO ×3 (08:14→17:35)
[2018-12-27] MEDS: SEVELAMER CARBONATE 800 MG TABLET PO ×3 (08:14→17:34)
[2018-12-27] MEDS: MUPIROCIN 2% 22 GM OINT TOP ×2 (08:15→21:00)
[2018-12-27] MEDS: ONDANSETRON 4 MG INJ IV (09:20)
[2018-12-27] MEDS: NA POLYST SULFON 15 GM/60 ML BTL PO (09:20)
[2018-12-28] MEDS: DIPHENHYDRAMINE 50 MG INJ IV ×6 (02:32→23:30)
[2018-12-28] MEDS: morphine 4 MG/ML VIAL IV ×6 (02:33→23:38)
[2018-12-28 06:02] LABS: ADD MAN DIFF? NO
[2018-12-28 06:04] LABS: WHITE BLOOD COUNT 6.7 10^3/ul (4.8-10.8)
[2018-12-28 06:04] LABS: BASOPHIL # 0.1 10^3/ul (0.0-0.1); BASOPHILS % 0.9 % (0.0-2.0); EOSINOPHILS # 0.9 10^3/ul (0.0-0.5); EOSINOPHILS % 12.9 % (0.0-7.0); HEMATOCRIT 37.3 % (37.0-47.0); HEMOGLOBIN 11.9 g/dl (12.0-16.0); LYMPHOCYTES # 1.9 10^3/ul (0.8-2.9); MEAN CORPUSCULAR HEMOGLOBIN 31.9 pg (29.0-33.0); MEAN CORPUSCULAR HGB CONC 31.9 g/dl (32.0-37.0); MEAN PLATELET VOLUME 11.2 fl (7.4-10.4); MONOCYTE # 0.5 10^3/ul (0.3-0.9); MONOCYTES % 7.3 % (0.0-11.0); NEUTROPHIL # 3.4 10^3/ul (1.6-7.5); NEUTROPHILS % 50.6 % (39.0-77.0); PLATELET COUNT 232 10^3/UL (140-415); RED BLOOD COUNT 3.73 10^6/ul (4.20-5.40); RED CELL DISTRIBUTION WIDTH 17.7 % (11.5-14.5)
[2018-12-28] MEDS: OXACILLIN 2 GM in SOD CHLORIDE 0.9% 50 ML IVPB ×4 (06:36→18:38)
[2018-12-28 07:13] LABS: ALANINE AMINOTRANSFERASE 123 IU/L (13-69); ALKALINE PHOSPHATASE 119 IU/L (42-121); ASPARTATE AMINO TRANSFERASE 121 IU/L (15-46); BILIRUBIN,INDIRECT 0.1 mg/dl (0-1.1); BILIRUBIN,TOTAL 0.1 mg/dl (0.2-1.3); LIPASE 45 U/L (23-300); TOTAL PROTEIN 7.7 g/dl (6.1-8.1)
[2018-12-28 07:19] LABS: ANION GAP 21 (5-13); BLOOD UREA NITROGEN 89 mg/dl (7-20); CALCIUM 8.2 mg/dl (8.4-10.2); CARBON DIOXIDE 22 mmol/L (21-31); CHLORIDE 94 mmol/L (97-110); CREATININE 10.08 mg/dl (0.44-1.00); Estimated GFR 4 mL/min (>60); GLUCOSE 99 mg/dl (70-220); SODIUM 137 mmol/L (135-144)
[2018-12-28 07:33] LABS: POTASSIUM 6.9 mmol/L (3.5-5.1)
[2018-12-28] MEDS: SEVELAMER CARBONATE 800 MG TABLET PO ×3 (08:55→18:39)
[2018-12-28] MEDS: MIDODRINE 5 MG TAB PO ×3 (08:56→18:39)
[2018-12-28] MEDS: MUPIROCIN 2% 22 GM OINT TOP ×2 (09:00→21:00)
[2018-12-28] MEDS: HEPARIN 1000 UNITS/ML 10 ML INJ HE ×2 (14:41)
[2018-12-28] MEDS: HEPARIN 1000 UNITS/ML 10 ML INJ CATHETER (18:00)
[2018-12-29] MEDS: DIPHENHYDRAMINE 50 MG INJ IV ×6 (04:05→22:57)
[2018-12-29] MEDS: morphine 4 MG/ML VIAL IV ×6 (04:05→23:39)
[2018-12-29] MEDS: SEVELAMER CARBONATE 800 MG TABLET PO ×4 (07:55→17:50)
[2018-12-29] MEDS: MIDODRINE 5 MG TAB PO ×3 (08:40→17:06)
[2018-12-29] MEDS: MUPIROCIN 2% 22 GM OINT TOP ×2 (08:40→21:45)
[2018-12-29] MEDS: ONDANSETRON 4 MG INJ IV (17:03)
[2018-12-29 17:23] LABS: ADD MAN DIFF? NO
[2018-12-29 17:27] LABS: WHITE BLOOD COUNT 7.5 10^3/ul (4.8-10.8)
[2018-12-29 17:27] LABS: BASOPHIL # 0.1 10^3/ul (0.0-0.1); BASOPHILS % 1.2 % (0.0-2.0); EOSINOPHILS # 0.9 10^3/ul (0.0-0.5); EOSINOPHILS % 11.8 % (0.0-7.0); HEMATOCRIT 39.5 % (37.0-47.0); HEMOGLOBIN 12.5 g/dl (12.0-16.0); MEAN CORPUSCULAR HGB CONC 31.6 g/dl (32.0-37.0); MONOCYTE # 0.7 10^3/ul (0.3-0.9); MONOCYTES % 9.7 % (0.0-11.0); NEUTROPHIL # 3.9 10^3/ul (1.6-7.5); NEUTROPHILS % 51.2 % (39.0-77.0); PLATELET COUNT 251 10^3/UL (140-415); RED BLOOD COUNT 3.91 10^6/ul (4.20-5.40); RED CELL DISTRIBUTION WIDTH 17.8 % (11.5-14.5)
[2018-12-29 17:44] LABS: ANION GAP 20 (5-13); BLOOD UREA NITROGEN 61 mg/dl (7-20); CALCIUM 8.6 mg/dl (8.4-10.2); CARBON DIOXIDE 24 mmol/L (21-31); CHLORIDE 98 mmol/L (97-110); CREATININE 8.72 mg/dl (0.44-1.00); Estimated GFR 5 mL/min (>60); GLUCOSE 60 mg/dl (70-220); POTASSIUM 5.8 mmol/L (3.5-5.1); SODIUM 142 mmol/L (135-144)
[2018-12-30] MEDS: morphine 4 MG/ML VIAL IV ×3 (04:56→21:20)
[2018-12-30] MEDS: DIPHENHYDRAMINE 50 MG INJ IV ×4 (04:56→22:57)
[2018-12-30 06:40] LABS: ADD MAN DIFF? NO
[2018-12-30 06:43] LABS: BASOPHIL # 0.1 10^3/ul (0.0-0.1); BASOPHILS % 1.2 % (0.0-2.0); EOSINOPHILS # 1.3 10^3/ul (0.0-0.5); EOSINOPHILS % 16.3 % (0.0-7.0); HEMATOCRIT 36.7 % (37.0-47.0); HEMOGLOBIN 11.7 g/dl (12.0-16.0); LYMPHOCYTES # 2.2 10^3/ul (0.8-2.9); LYMPHOCYTES % 28.1 % (15.0-51.0); MEAN CORPUSCULAR HEMOGLOBIN 32.3 pg (29.0-33.0); MEAN CORPUSCULAR HGB CONC 31.9 g/dl (32.0-37.0); MEAN CORPUSCULAR VOLUME 101.4 fl (82.0-101.0); MEAN PLATELET VOLUME 11.2 fl (7.4-10.4); MONOCYTE # 0.8 10^3/ul (0.3-0.9); MONOCYTES % 10.5 % (0.0-11.0); NEUTROPHIL # 3.4 10^3/ul (1.6-7.5); NEUTROPHILS % 43.6 % (39.0-77.0); PLATELET COUNT 241 10^3/UL (140-415); RED BLOOD COUNT 3.62 10^6/ul (4.20-5.40); RED CELL DISTRIBUTION WIDTH 17.6 % (11.5-14.5)
[2018-12-30 06:43] LABS: WHITE BLOOD COUNT 7.7 10^3/ul (4.8-10.8)
[2018-12-30 07:09] LABS: ANION GAP 18 (5-13); BLOOD UREA NITROGEN 86 mg/dl (7-20); CALCIUM 8.4 mg/dl (8.4-10.2); CARBON DIOXIDE 24 mmol/L (21-31); CHLORIDE 95 mmol/L (97-110); CREATININE 9.69 mg/dl (0.44-1.00); Estimated GFR 5 mL/min (>60); GLUCOSE 69 mg/dl (70-220); SODIUM 137 mmol/L (135-144)
[2018-12-30 07:11] LABS: POTASSIUM 6.9 mmol/L (3.5-5.1)
[2018-12-30] MEDS ORDERED: INSULIN REGULAR, HUMAN 100 UNIT/1 ML 3ML VIAL IVP (07:22)
[2018-12-30] MEDS ORDERED: DEXTROSE 50% 50 ML SYRINGE IV (07:30)
[2018-12-30] MEDS ORDERED: CALCIUM GLUCONATE 10% 1 GM in DEXTROSE 5% 100 ML IVPB (08:30)
[2018-12-30] MEDS: SEVELAMER CARBONATE 800 MG TABLET PO ×3 (09:15→17:35)
[2018-12-30] MEDS: MIDODRINE 5 MG TAB PO ×3 (09:15→17:35)
[2018-12-30] MEDS: HYDROCORTISONE 1% 28 GM CR TOP ×2 (09:16→21:20)
[2018-12-30] MEDS: HEPARIN 1000 UNITS/ML 10 ML INJ HE ×2 (09:22→09:23)
[2018-12-30] MEDS: MUPIROCIN 2% 22 GM OINT TOP ×2 (11:00→21:13)
[2018-12-30] MEDS: ALTEPLASE (CATHFLO) 2 MG INJ CATHETER (12:18)
[2018-12-30 13:35] LABS: CREATINE KINASE 22 IU/L (23-200)
[2018-12-30 13:42] LABS: IONIZED CALCIUM 1.1 mmol/L (1.1-1.4)
[2018-12-30 13:48] LABS: CK INDEX 1.6; CK-MB 0.36 ng/ml (0.0-2.4); TROPONIN-I < 0.012 ng/ml (0.000-0.120)
[2018-12-30 14:37] LABS: ANION GAP 19 (5-13); BLOOD UREA NITROGEN 27 mg/dl (7-20); CALCIUM 10.2 mg/dl (8.4-10.2); CARBON DIOXIDE 24 mmol/L (21-31); CHLORIDE 94 mmol/L (97-110); CREATININE 4.56 mg/dl (0.44-1.00); Estimated GFR 11 mL/min (>60); GLUCOSE 138 mg/dl (70-220); POTASSIUM 4.6 mmol/L (3.5-5.1); SODIUM 137 mmol/L (135-144)
[2018-12-30] MEDS: ALBUTEROL 0.083% (NEB) 2.5 MG/3 ML AMP HHN (17:55)
[2018-12-31] MEDS: DIPHENHYDRAMINE 50 MG INJ IV ×3 (05:42→17:59)
[2018-12-31] MEDS: morphine 4 MG/ML VIAL IV ×2 (05:42→14:29)
[2018-12-31 05:49] LABS: ADD MAN DIFF? NO
[2018-12-31 05:59] LABS: BASOPHIL # 0.1 10^3/ul (0.0-0.1); EOSINOPHILS # 0.9 10^3/ul (0.0-0.5); EOSINOPHILS % 11.1 % (0.0-7.0); HEMATOCRIT 43.4 % (37.0-47.0); HEMOGLOBIN 13.6 g/dl (12.0-16.0); MEAN CORPUSCULAR HEMOGLOBIN 32.3 pg (29.0-33.0); MEAN CORPUSCULAR HGB CONC 31.3 g/dl (32.0-37.0); MEAN CORPUSCULAR VOLUME 103.1 fl (82.0-101.0); MEAN PLATELET VOLUME 11.2 fl (7.4-10.4); MONOCYTE # 0.7 10^3/ul (0.3-0.9); MONOCYTES % 8.6 % (0.0-11.0); NEUTROPHIL # 4.4 10^3/ul (1.6-7.5); NEUTROPHILS % 53.9 % (39.0-77.0); PLATELET COUNT 254 10^3/UL (140-415); RED BLOOD COUNT 4.21 10^6/ul (4.20-5.40); RED CELL DISTRIBUTION WIDTH 17.9 % (11.5-14.5)
[2018-12-31 05:59] LABS: WHITE BLOOD COUNT 8.1 10^3/ul (4.8-10.8)
[2018-12-31 06:46] LABS: ANION GAP 18 (5-13); BLOOD UREA NITROGEN 60 mg/dl (7-20); CALCIUM 9.1 mg/dl (8.4-10.2); CARBON DIOXIDE 25 mmol/L (21-31); CHLORIDE 99 mmol/L (97-110); CREATININE 8.03 mg/dl (0.44-1.00); Estimated GFR 6 mL/min (>60); GLUCOSE 86 mg/dl (70-220); POTASSIUM 5.8 mmol/L (3.5-5.1); SODIUM 142 mmol/L (135-144)
[2018-12-31] MEDS: SEVELAMER CARBONATE 800 MG TABLET PO ×2 (08:03→13:37)
[2018-12-31] MEDS: MIDODRINE 5 MG TAB PO ×3 (08:04→17:57)
[2018-12-31] MEDS: MUPIROCIN 2% 22 GM OINT TOP ×2 (08:05→21:03)
[2018-12-31] MEDS: HYDROCORTISONE 1% 28 GM CR TOP ×2 (08:06→21:03)
[2018-12-31] MEDS: HEPARIN 1000 UNITS/ML 10 ML INJ HE ×2 (09:42→09:43)
[2018-12-31] MEDS: ALTEPLASE (CATHFLO) 2 MG INJ CATHETER (12:41)
[2018-12-31] MEDS: CALCITRIOL 0.25 MCG CAP PO (17:58)
[2018-12-31] MEDS: METOCLOPRAMIDE 10 MG INJ IV (21:01)
[2019-01-01] MEDS: DIPHENHYDRAMINE 50 MG INJ IV ×3 (00:12→12:16)
[2019-01-01] MEDS: morphine 4 MG/ML VIAL IV ×4 (00:18→15:15)
[2019-01-01] MEDS: METOCLOPRAMIDE 10 MG INJ IV ×3 (02:18→11:43)
[2019-01-01 07:58] LABS: ALBUMIN 4.6 g/dl (3.3-4.9); ANION GAP 19 (5-13); BLOOD UREA NITROGEN 55 mg/dl (7-20); CALCIUM 9.3 mg/dl (8.4-10.2); CARBON DIOXIDE 23 mmol/L (21-31); CHLORIDE 98 mmol/L (97-110); CREATININE 6.96 mg/dl (0.44-1.00); GLUCOSE 90 mg/dl (70-220); POTASSIUM 5.4 mmol/L (3.5-5.1); SODIUM 140 mmol/L (135-144)
[2019-01-01] MEDS: CALCITRIOL 0.25 MCG CAP PO (08:00)
[2019-01-01] MEDS: SEVELAMER CARBONATE 800 MG TABLET PO ×3 (08:00→12:21)
[2019-01-01] MEDS: MIDODRINE 5 MG TAB PO ×2 (08:01→12:56)
[2019-01-01] MEDS: MUPIROCIN 2% 22 GM OINT TOP (08:01)
[2019-01-01] MEDS: HYDROCORTISONE 1% 28 GM CR TOP (08:02)
[2019-01-01] MEDS: NA POLYST SULFON 15 GM/60 ML BTL PO (11:43)
== END 2019-01-01 17:11 | disposition home or self-care (01) | DRG 314 ==
LOC: ICU 12-04 04:13 → E/R 15:21 → ICU 12-04 06:10 → TEL 12-05 22:20
PROVIDERS: Internal Medicine
PROC: 02H633Z Insertion of Infusion Device into Right Atrium, Percutaneous Approach (ICD-10-PCS; principal; 2018-12-13 13:21)
PROC: 0JH63XZ Insertion of Tunneled Vascular Access Device into Chest Subcutaneous Tissue and Fascia, Percutaneous Approach (ICD-10-PCS; 2018-12-13 13:21)
PROC: 0JPT3XZ Removal of Tunneled Vascular Access Device from Trunk Subcutaneous Tissue and Fascia, Percutaneous Approach (ICD-10-PCS; 2018-12-13 13:21)
PROC: 02PY33Z Removal of Infusion Device from Great Vessel, Percutaneous Approach (ICD-10-PCS; 2018-12-13 13:21)
PROC: 0JHM3XZ Insertion of Tunneled Vascular Access Device into Left Upper Leg Subcutaneous Tissue and Fascia, Percutaneous Approach (ICD-10-PCS; 2018-12-13 13:21)
PROC: 06H033Z Insertion of Infusion Device into Inferior Vena Cava, Percutaneous Approach (ICD-10-PCS; 2018-12-13 13:21)
PROC: 0JPTXXZ Removal of Tunneled Vascular Access Device from Trunk Subcutaneous Tissue and Fascia, External Approach (ICD-10-PCS; 2018-12-13 13:21)
PROC: 02PAX3Z Removal of Infusion Device from Heart, External Approach (ICD-10-PCS; 2018-12-13 13:21)
PROC: 5A1D70Z Performance of Urinary Filtration, Intermittent, Less than 6 Hours Per Day (ICD-10-PCS; 2018-12-13 13:21)
PROC: 30233N1 Transfusion of Nonautologous Red Blood Cells into Peripheral Vein, Percutaneous Approach (ICD-10-PCS; 2018-12-13 13:21)
DX: T82.7XXA Infection and inflammatory reaction due to other cardiac and vascular devices, implants and grafts, initial encounter (principal); A41.01 Sepsis due to Methicillin susceptible Staphylococcus aureus; R65.21 Severe sepsis with septic shock; N18.6 End stage renal disease; I12.0 Hypertensive chronic kidney disease with stage 5 chronic kidney disease or end stage renal disease; C95.90 Leukemia, unspecified not having achieved remission; E87.5 Hyperkalemia; D63.1 Anemia in chronic kidney disease; L29.9 Pruritus, unspecified; T36.8X5A Adverse effect of other systemic antibiotics, initial encounter; N25.0 Renal osteodystrophy; D64.81 Anemia due to antineoplastic chemotherapy; T82.838A Hemorrhage due to vascular prosthetic devices, implants and grafts, initial encounter; E83.81 Hungry bone syndrome; E89.2 Postprocedural hypoparathyroidism; Z99.2 Dependence on renal dialysis
CPT/HCPCS: 36430; 36590; 70450; 71045; 71250; 72149; 73130-LT; 73218; 74018; 76536; 78806; 80048; 80053; 80069; 80076; 82085; 82330; 82550; 82553; 82962; 83605; 83690; 83735; 84484; 84703; 85025; 85610; 85730; 86850; 86900; 86901; 86920; 87040-91; 87070; 87340; 90935; 93005; 93306; 93312; 93320; 93325; 96374; 96375; 99285-25

== ENCOUNTER 2019-01-03 11:00 | Emergency (ER) | payer OTHER ==
[2019-01-03] MEDS: ONDANSETRON 4 MG INJ IV (11:29)
[2019-01-03] MEDS: morphine 4 MG/ML VIAL IV (11:29)
[2019-01-03 11:37] LABS: ADD MAN DIFF? NO
[2019-01-03 11:38] LABS: WHITE BLOOD COUNT 7.6 10^3/ul (4.8-10.8)
[2019-01-03 11:38] LABS: BASOPHIL # 0.1 10^3/ul (0.0-0.1); BASOPHILS % 0.9 % (0.0-2.0); EOSINOPHILS # 0.5 10^3/ul (0.0-0.5); EOSINOPHILS % 5.9 % (0.0-7.0); HEMATOCRIT 38.4 % (37.0-47.0); HEMOGLOBIN 12.3 g/dl (12.0-16.0); LYMPHOCYTES # 1.1 10^3/ul (0.8-2.9); LYMPHOCYTES % 14.4 % (15.0-51.0); MEAN CORPUSCULAR HEMOGLOBIN 32.5 pg (29.0-33.0); MEAN CORPUSCULAR VOLUME 101.3 fl (82.0-101.0); MONOCYTE # 0.7 10^3/ul (0.3-0.9); MONOCYTES % 9.4 % (0.0-11.0); NEUTROPHIL # 5.2 10^3/ul (1.6-7.5); PLATELET COUNT 176 10^3/UL (140-415); RED BLOOD COUNT 3.79 10^6/ul (4.20-5.40); RED CELL DISTRIBUTION WIDTH 16.9 % (11.5-14.5)
[2019-01-03 11:58] LABS: ANION GAP 20 (5-13); BLOOD UREA NITROGEN 59 mg/dl (7-20); CALCIUM 9.1 mg/dl (8.4-10.2); CARBON DIOXIDE 22 mmol/L (21-31); CHLORIDE 97 mmol/L (97-110); CREATININE 8.26 mg/dl (0.44-1.00); Estimated GFR 6 mL/min (>60); GLUCOSE 113 mg/dl (70-220); POTASSIUM 4.7 mmol/L (3.5-5.1); SODIUM 139 mmol/L (135-144)
[2019-01-03] MEDS: DIPHENHYDRAMINE 50 MG INJ IV (12:40)
== END 2019-01-03 13:33 | disposition home or self-care (01) ==
LOC: E/R 11:00
DX: N18.6 End stage renal disease (principal); C95.90 Leukemia, unspecified not having achieved remission; R07.9 Chest pain, unspecified; Z87.891 Personal history of nicotine dependence; Z99.2 Dependence on renal dialysis
CPT/HCPCS: 36415; 71045; 80048; 84703; 85025; 93005; 96374; 96375; 99285-25

== ENCOUNTER 2019-01-13 20:16 | Inpatient (IN) | payer OTHER ==
[2019-01-13 21:08] LABS: ADD MAN DIFF? NO
[2019-01-13 21:11] LABS: BASOPHIL # 0.1 10^3/ul (0.0-0.1); BASOPHILS % 0.8 % (0.0-2.0); EOSINOPHILS # 0.7 10^3/ul (0.0-0.5); EOSINOPHILS % 8.6 % (0.0-7.0); HEMATOCRIT 35.6 % (37.0-47.0); HEMOGLOBIN 11.2 g/dl (12.0-16.0); LYMPHOCYTES # 1.9 10^3/ul (0.8-2.9); MEAN CORPUSCULAR HEMOGLOBIN 32.6 pg (29.0-33.0); MEAN CORPUSCULAR HGB CONC 31.5 g/dl (32.0-37.0); MEAN CORPUSCULAR VOLUME 103.5 fl (82.0-101.0); MEAN PLATELET VOLUME 11.1 fl (7.4-10.4); MONOCYTE # 0.6 10^3/ul (0.3-0.9); MONOCYTES % 8.3 % (0.0-11.0); NEUTROPHIL # 4.4 10^3/ul (1.6-7.5); PLATELET COUNT 203 10^3/UL (140-415); RED BLOOD COUNT 3.44 10^6/ul (4.20-5.40); RED CELL DISTRIBUTION WIDTH 16.6 % (11.5-14.5)
[2019-01-13 21:11] LABS: WHITE BLOOD COUNT 7.8 10^3/ul (4.8-10.8)
[2019-01-13] MEDS: ONDANSETRON 4 MG INJ IV ×2 (21:11→23:06)
[2019-01-13] MEDS: morphine 4 MG/ML VIAL IV (21:11)
[2019-01-13 21:30] LABS: INR 0.98; PROTIME 13.1 Sec (11.9-14.9)
[2019-01-13 21:31] LABS: PARTIAL THROMBOPLASTIN TIME 33.7 Sec (23.0-35.0)
[2019-01-13 21:40] LABS: TROPONIN-I < 0.012 ng/ml (0.000-0.120)
[2019-01-13] MEDS: DIPHENHYDRAMINE 50 MG INJ IV (22:11)
[2019-01-13 22:19] LABS: ALANINE AMINOTRANSFERASE 238 IU/L (13-69); ALBUMIN 4.7 g/dl (3.3-4.9); ALBUMIN/GLOBULIN RATIO 1.27; ALKALINE PHOSPHATASE 131 IU/L (42-121); ANION GAP 16 (5-13); ASPARTATE AMINO TRANSFERASE 161 IU/L (15-46); BILIRUBIN,INDIRECT 0.2 mg/dl (0-1.1); BILIRUBIN,TOTAL 0.2 mg/dl (0.2-1.3); BLOOD UREA NITROGEN 49 mg/dl (7-20); CALCIUM 10.1 mg/dl (8.4-10.2); CARBON DIOXIDE 29 mmol/L (21-31); CHLORIDE 95 mmol/L (97-110); CREATININE 5.98 mg/dl (0.44-1.00); Estimated GFR 8 mL/min (>60); GLUCOSE 93 mg/dl (70-220); POTASSIUM 5.6 mmol/L (3.5-5.1); SODIUM 140 mmol/L (135-144); TOTAL PROTEIN 8.4 g/dl (6.1-8.1)
[2019-01-13] MEDS ORDERED: SODIUM POLYSTYRENE 15 GM KIT (POWDER + SORBITOL) PO (22:43)
[2019-01-13] MEDS: NA BICARBONATE 8.4% 50 ML SYG IV (22:52)
[2019-01-13] MEDS: CA CHLORIDE 10% 10 ML SYRINGE IV (22:53)
[2019-01-13] MEDS ORDERED: NACL 0.9% 3 ML SYG IV (23:00)
[2019-01-13] MEDS ORDERED: ACETAMINOPHEN 325 MG TAB PO (23:00)
[2019-01-13] MEDS: ALBUTEROL 0.5% (NEB) 2.5 MG/0.5 ML AMP INH (23:23)
[2019-01-14] MEDS: morphine 2 MG INJ IV ×5 (01:00→20:11)
[2019-01-14] MEDS: ACETAMINOPHEN 325 MG TAB PO (01:40)
[2019-01-14] MEDS ORDERED: morphine 2 MG INJ IV (02:00)
[2019-01-14] MEDS: NA POLYST SULFON 15 GM/60 ML BTL PO (02:17)
[2019-01-14 03:08] LABS: ADD MAN DIFF? NO
[2019-01-14 03:09] LABS: BASOPHIL # 0.1 10^3/ul (0.0-0.1); BASOPHILS % 0.5 % (0.0-2.0); EOSINOPHILS # 0.4 10^3/ul (0.0-0.5); EOSINOPHILS % 3.8 % (0.0-7.0); HEMOGLOBIN 10.7 g/dl (12.0-16.0); LYMPHOCYTES # 1.8 10^3/ul (0.8-2.9); LYMPHOCYTES % 18.8 % (15.0-51.0); MEAN CORPUSCULAR HEMOGLOBIN 32.6 pg (29.0-33.0); MEAN CORPUSCULAR HGB CONC 30.6 g/dl (32.0-37.0); MEAN CORPUSCULAR VOLUME 106.7 fl (82.0-101.0); MONOCYTE # 0.8 10^3/ul (0.3-0.9); MONOCYTES % 8.8 % (0.0-11.0); NEUTROPHIL # 6.4 10^3/ul (1.6-7.5); NEUTROPHILS % 67.8 % (39.0-77.0); PLATELET COUNT 173 10^3/UL (140-415); RED BLOOD COUNT 3.28 10^6/ul (4.20-5.40); RED CELL DISTRIBUTION WIDTH 16.5 % (11.5-14.5)
[2019-01-14 03:09] LABS: WHITE BLOOD COUNT 9.4 10^3/ul (4.8-10.8)
[2019-01-14 03:18] LABS: HEMOGLOBIN A1C 4.5 % (0-5.9)
[2019-01-14 03:30] LABS: ALANINE AMINOTRANSFERASE 214 IU/L (13-69); ALBUMIN 4.6 g/dl (3.3-4.9); ALBUMIN/GLOBULIN RATIO 1.24; ALKALINE PHOSPHATASE 111 IU/L (42-121); ANION GAP 16 (5-13); ASPARTATE AMINO TRANSFERASE 132 IU/L (15-46); BILIRUBIN,INDIRECT 0.2 mg/dl (0-1.1); BILIRUBIN,TOTAL 0.2 mg/dl (0.2-1.3); BLOOD UREA NITROGEN 54 mg/dl (7-20); CALCIUM 11.4 mg/dl (8.4-10.2); CARBON DIOXIDE 27 mmol/L (21-31); CHLORIDE 98 mmol/L (97-110); CREATININE 6.65 mg/dl (0.44-1.00); Estimated GFR 7 mL/min (>60); GLUCOSE 104 mg/dl (70-220); POTASSIUM 5.5 mmol/L (3.5-5.1); SODIUM 141 mmol/L (135-144); TOTAL PROTEIN 8.3 g/dl (6.1-8.1)
[2019-01-14 03:42] LABS: CK-MB < 0.22 ng/ml (0.0-2.4); TROPONIN-I < 0.012 ng/ml (0.000-0.120)
[2019-01-14 04:00] LABS: CREATINE KINASE < 20 IU/L (23-200)
[2019-01-14] MEDS: HEPARIN 5,000 UNIT/1 ML VIAL SC ×3 (06:48→23:05)
[2019-01-14] MEDS: FAMOTIDINE 20 MG INJ IV (09:17)
[2019-01-14 09:34] LABS: CREATINE KINASE < 20 IU/L (23-200)
[2019-01-14 09:39] LABS: CK-MB < 0.22 ng/ml (0.0-2.4); TROPONIN-I < 0.012 ng/ml (0.000-0.120)
[2019-01-14] MEDS: DIPHENHYDRAMINE 50 MG INJ IV ×3 (11:43→18:14)
[2019-01-14] MEDS ORDERED: SODIUM CHLORIDE 0.9% 1L BAG IV (14:00)
[2019-01-14 16:06] LABS: HEPATITIS B SURFACE ANTIGEN NEGATIVE (NEGATIVE)
[2019-01-14] MEDS: HEPARIN 1000 UNITS/ML 10 ML INJ CATHETER (18:32)
[2019-01-15] MEDS: DIPHENHYDRAMINE 50 MG INJ IV ×5 (00:10→22:25)
[2019-01-15] MEDS: morphine 2 MG INJ IV ×5 (00:10→19:53)
[2019-01-15] MEDS: HEPARIN 5,000 UNIT/1 ML VIAL SC (06:15)
[2019-01-15 07:02] LABS: ADD MAN DIFF? NO
[2019-01-15 07:06] LABS: BASOPHIL # 0.1 10^3/ul (0.0-0.1); BASOPHILS % 0.9 % (0.0-2.0); EOSINOPHILS # 0.6 10^3/ul (0.0-0.5); EOSINOPHILS % 11.1 % (0.0-7.0); HEMATOCRIT 34.3 % (37.0-47.0); HEMOGLOBIN 10.7 g/dl (12.0-16.0); LYMPHOCYTES # 1.5 10^3/ul (0.8-2.9); LYMPHOCYTES % 26.2 % (15.0-51.0); MEAN CORPUSCULAR HEMOGLOBIN 32.9 pg (29.0-33.0); MEAN CORPUSCULAR HGB CONC 31.2 g/dl (32.0-37.0); MEAN CORPUSCULAR VOLUME 105.5 fl (82.0-101.0); MONOCYTE # 0.5 10^3/ul (0.3-0.9); MONOCYTES % 8.9 % (0.0-11.0); NEUTROPHILS % 52.7 % (39.0-77.0); PLATELET COUNT 188 10^3/UL (140-415); RED BLOOD COUNT 3.25 10^6/ul (4.20-5.40); RED CELL DISTRIBUTION WIDTH 16.5 % (11.5-14.5)
[2019-01-15 07:06] LABS: WHITE BLOOD COUNT 5.6 10^3/ul (4.8-10.8)
[2019-01-15 07:38] LABS: ANION GAP 12 (5-13); BLOOD UREA NITROGEN 30 mg/dl (7-20); CALCIUM 9.5 mg/dl (8.4-10.2); CARBON DIOXIDE 28 mmol/L (21-31); CHLORIDE 100 mmol/L (97-110); CREATININE 4.91 mg/dl (0.44-1.00); Estimated GFR 10 mL/min (>60); GLUCOSE 65 mg/dl (70-220); PHOSPHORUS 8.2 mg/dl (2.5-4.9); POTASSIUM 5.6 mmol/L (3.5-5.1); SODIUM 140 mmol/L (135-144)
[2019-01-15] MEDS: ONDANSETRON 4 MG INJ IV (09:02)
[2019-01-15] MEDS: FAMOTIDINE 20 MG INJ IV (09:02)
[2019-01-15] MEDS: SODIUM POLYSTYRENE 15 GM KIT (POWDER + SORBITOL) PO (17:48)
[2019-01-15] MEDS: LINEZOLID 600 MG/300 ML (PMX) 300 ML IVPB (21:41)
[2019-01-16] MEDS: morphine 2 MG INJ IV ×6 (00:34→22:58)
[2019-01-16] MEDS: DIPHENHYDRAMINE 50 MG INJ IV ×4 (04:31→22:58)
[2019-01-16 07:35] LABS: ANION GAP 14 (5-13); BLOOD UREA NITROGEN 54 mg/dl (7-20); CALCIUM 9.2 mg/dl (8.4-10.2); CARBON DIOXIDE 26 mmol/L (21-31); CHLORIDE 98 mmol/L (97-110); CREATININE 7.37 mg/dl (0.44-1.00); Estimated GFR 6 mL/min (>60); GLUCOSE 71 mg/dl (70-220); SODIUM 138 mmol/L (135-144)
[2019-01-16 07:44] LABS: POTASSIUM 6.7 mmol/L (3.5-5.1)
[2019-01-16] MEDS: FAMOTIDINE 20 MG INJ IV (08:35)
[2019-01-16] MEDS: HEPARIN 1000 UNITS/ML 10 ML INJ CATHETER (14:42)
[2019-01-16] MEDS: ALBUMIN HUMAN 25% 100 ML IV (15:30)
[2019-01-17] MEDS: DIPHENHYDRAMINE 50 MG INJ IV ×4 (04:56→23:04)
[2019-01-17] MEDS: morphine 2 MG INJ IV ×5 (04:56→23:04)
[2019-01-17] MEDS: FAMOTIDINE 20 MG TAB PO (08:58)
[2019-01-17 09:53] LABS: ANION GAP 14 (5-13); BLOOD UREA NITROGEN 37 mg/dl (7-20); CALCIUM 9.9 mg/dl (8.4-10.2); CARBON DIOXIDE 25 mmol/L (21-31); CHLORIDE 102 mmol/L (97-110); CREATININE 5.78 mg/dl (0.44-1.00); Estimated GFR 8 mL/min (>60); GLUCOSE 70 mg/dl (70-220); SODIUM 141 mmol/L (135-144)
[2019-01-17] MEDS: oxyCODONE (CR) 10 MG TAB [oxyCONTIN] PO ×2 (11:11→22:14)
[2019-01-17] MEDS: NA POLYST SULFON 15 GM/60 ML BTL PO (16:55)
[2019-01-17] MEDS ORDERED: NA POLYST SULFON 15 GM/60 ML BTL PO (17:00)
[2019-01-17] MEDS: SENNA/DOCUSATE NA (8.6MG/50MG) TAB PO (22:13)
[2019-01-18] MEDS: morphine 2 MG INJ IV ×4 (05:26→21:10)
[2019-01-18] MEDS: DIPHENHYDRAMINE 50 MG INJ IV ×4 (05:26→23:07)
[2019-01-18 08:35] LABS: ANION GAP 14 (5-13); BLOOD UREA NITROGEN 59 mg/dl (7-20); CALCIUM 9.7 mg/dl (8.4-10.2); CARBON DIOXIDE 25 mmol/L (21-31); CHLORIDE 100 mmol/L (97-110); CREATININE 8.65 mg/dl (0.44-1.00); Estimated GFR 5 mL/min (>60); GLUCOSE 69 mg/dl (70-220); SODIUM 139 mmol/L (135-144)
[2019-01-18 08:37] LABS: POTASSIUM 6.1 mmol/L (3.5-5.1)
[2019-01-18] MEDS: oxyCODONE (CR) 10 MG TAB [oxyCONTIN] PO ×2 (10:31→21:00)
[2019-01-18] MEDS: FAMOTIDINE 20 MG TAB PO (10:31)
[2019-01-18] MEDS: HEPARIN 1000 UNITS/ML 10 ML INJ CATHETER (13:31)
[2019-01-18] MEDS: SENNA/DOCUSATE NA (8.6MG/50MG) TAB PO (21:10)
[2019-01-19] MEDS: morphine 2 MG INJ IV ×5 (01:09→21:18)
[2019-01-19] MEDS: DIPHENHYDRAMINE 50 MG INJ IV ×4 (05:05→23:35)
[2019-01-19 08:17] LABS: ANION GAP 18 (5-13); BLOOD UREA NITROGEN 48 mg/dl (7-20); CARBON DIOXIDE 25 mmol/L (21-31); CHLORIDE 97 mmol/L (97-110); CREATININE 7.63 mg/dl (0.44-1.00); Estimated GFR 6 mL/min (>60); GLUCOSE 81 mg/dl (70-220)
[2019-01-19 08:18] LABS: SODIUM 140 mmol/L (135-144)
[2019-01-19] MEDS: oxyCODONE (CR) 10 MG TAB [oxyCONTIN] PO ×2 (09:40→21:00)
[2019-01-19] MEDS: FAMOTIDINE 20 MG TAB PO (09:40)
[2019-01-19] MEDS: ALTEPLASE (CATHFLO) 2 MG INJ CATHETER (15:44)
[2019-01-19] MEDS: SENNA/DOCUSATE NA (8.6MG/50MG) TAB PO (21:18)
[2019-01-20] MEDS: morphine 2 MG INJ IV ×6 (01:18→21:41)
[2019-01-20] MEDS: DIPHENHYDRAMINE 50 MG INJ IV ×4 (05:21→23:28)
[2019-01-20 07:00] LABS: ANION GAP 18 (5-13); BLOOD UREA NITROGEN 64 mg/dl (7-20); CARBON DIOXIDE 22 mmol/L (21-31); CHLORIDE 101 mmol/L (97-110); CREATININE 7.62 mg/dl (0.44-1.00); Estimated GFR 6 mL/min (>60); GLUCOSE 73 mg/dl (70-220); POTASSIUM 5.9 mmol/L (3.5-5.1); SODIUM 141 mmol/L (135-144)
[2019-01-20] MEDS: oxyCODONE (CR) 10 MG TAB [oxyCONTIN] PO ×2 (08:08→20:07)
[2019-01-20] MEDS: FAMOTIDINE 20 MG TAB PO (08:08)
[2019-01-20] MEDS: SENNA/DOCUSATE NA (8.6MG/50MG) TAB PO (20:07)
[2019-01-21] MEDS: morphine 2 MG INJ IV ×5 (01:48→22:32)
[2019-01-21] MEDS: DIPHENHYDRAMINE 50 MG INJ IV ×4 (05:21→23:33)
[2019-01-21 07:34] LABS: ADD MAN DIFF? NO
[2019-01-21 07:51] LABS: BASOPHILS % 0.5 % (0.0-2.0); EOSINOPHILS # 0.7 10^3/ul (0.0-0.5); EOSINOPHILS % 9.5 % (0.0-7.0); HEMATOCRIT 32.7 % (37.0-47.0); HEMOGLOBIN 10.6 g/dl (12.0-16.0); LYMPHOCYTES # 1.9 10^3/ul (0.8-2.9); LYMPHOCYTES % 24.8 % (15.0-51.0); MEAN CORPUSCULAR HEMOGLOBIN 33.5 pg (29.0-33.0); MEAN CORPUSCULAR HGB CONC 32.4 g/dl (32.0-37.0); MEAN CORPUSCULAR VOLUME 103.5 fl (82.0-101.0); MEAN PLATELET VOLUME 11.7 fl (7.4-10.4); MONOCYTE # 0.6 10^3/ul (0.3-0.9); MONOCYTES % 8.1 % (0.0-11.0); NEUTROPHIL # 4.3 10^3/ul (1.6-7.5); NEUTROPHILS % 56.8 % (39.0-77.0); PLATELET COUNT 177 10^3/UL (140-415); RED BLOOD COUNT 3.16 10^6/ul (4.20-5.40); RED CELL DISTRIBUTION WIDTH 14.7 % (11.5-14.5)
[2019-01-21 07:51] LABS: WHITE BLOOD COUNT 7.5 10^3/ul (4.8-10.8)
[2019-01-21] MEDS: FAMOTIDINE 20 MG TAB PO (08:25)
[2019-01-21] MEDS: oxyCODONE (CR) 10 MG TAB [oxyCONTIN] PO (08:26)
[2019-01-21 08:29] LABS: ANION GAP 19 (5-13); BLOOD UREA NITROGEN 99 mg/dl (7-20); CALCIUM 9.5 mg/dl (8.4-10.2); CARBON DIOXIDE 21 mmol/L (21-31); CHLORIDE 97 mmol/L (97-110); CREATININE 9.92 mg/dl (0.44-1.00); Estimated GFR 4 mL/min (>60); GLUCOSE 70 mg/dl (70-220); SODIUM 137 mmol/L (135-144)
[2019-01-21 08:54] LABS: POTASSIUM 6.5 mmol/L (3.5-5.1)
[2019-01-21] MEDS: METHADONE (1 MG/ML 5 ML PO UD SYG) PO ×2 (11:41→18:00)
[2019-01-21] MEDS: HEPARIN 1000 UNITS/ML 10 ML INJ CATHETER (13:14)
[2019-01-21] MEDS: ONDANSETRON 4 MG INJ IV (19:29)
[2019-01-21] MEDS: SENNA/DOCUSATE NA (8.6MG/50MG) TAB PO (20:46)
[2019-01-22] MEDS: DIPHENHYDRAMINE 50 MG INJ IV ×4 (05:34→23:40)
[2019-01-22] MEDS: METHADONE (1 MG/ML 5 ML PO UD SYG) PO ×5 (06:00→23:39)
[2019-01-22 06:39] LABS: ANION GAP 17 (5-13); BLOOD UREA NITROGEN 75 mg/dl (7-20); CALCIUM 9.4 mg/dl (8.4-10.2); CARBON DIOXIDE 24 mmol/L (21-31); CHLORIDE 100 mmol/L (97-110); Estimated GFR 5 mL/min (>60); GLUCOSE 81 mg/dl (70-220); SODIUM 141 mmol/L (135-144)
[2019-01-22] MEDS: morphine 2 MG INJ IV ×4 (06:46→23:40)
[2019-01-22 07:27] LABS: POTASSIUM 6.7 mmol/L (3.5-5.1)
[2019-01-22] MEDS: ONDANSETRON 4 MG INJ IV ×2 (08:25→17:46)
[2019-01-22] MEDS: FAMOTIDINE 20 MG TAB PO (08:26)
[2019-01-22] MEDS: NA POLYST SULFON 15 GM/60 ML BTL PO ×2 (11:24→17:46)
[2019-01-22] MEDS: SENNA/DOCUSATE NA (8.6MG/50MG) TAB PO (20:26)
[2019-01-23] MEDS: DIPHENHYDRAMINE 50 MG INJ IV ×3 (05:48→17:48)
[2019-01-23] MEDS: METHADONE (1 MG/ML 5 ML PO UD SYG) PO ×3 (05:52→17:03)
[2019-01-23] MEDS: morphine 2 MG INJ IV ×3 (05:52→17:07)
[2019-01-23] MEDS: ONDANSETRON 4 MG INJ IV ×2 (06:01→13:29)
[2019-01-23 07:25] LABS: ANION GAP 18 (5-13); BLOOD UREA NITROGEN 101 mg/dl (7-20); CALCIUM 9.1 mg/dl (8.4-10.2); CARBON DIOXIDE 21 mmol/L (21-31); CHLORIDE 97 mmol/L (97-110); CREATININE 10.42 mg/dl (0.44-1.00); Estimated GFR 4 mL/min (>60); GLUCOSE 56 mg/dl (70-220); SODIUM 136 mmol/L (135-144)
[2019-01-23 07:31] LABS: POTASSIUM 6.2 mmol/L (3.5-5.1)
[2019-01-23] MEDS: FAMOTIDINE 20 MG TAB PO (08:37)
[2019-01-23] MEDS: ALBUMIN HUMAN 25% 100 ML IV (09:57)
[2019-01-23] MEDS: DIPHENHYDRAMINE 25 MG CAP PO (11:47)
[2019-01-23] MEDS: HEPARIN 1000 UNITS/ML 10 ML INJ CATHETER (12:23)
== END 2019-01-23 18:10 | disposition home or self-care (01) | DRG 640 ==
LOC: TEL 22:50 → E/R 20:16 → TEL 01-14 08:20
PROC: 5A1D70Z Performance of Urinary Filtration, Intermittent, Less than 6 Hours Per Day (ICD-10-PCS; principal; 2019-01-14)
DX: E87.5 Hyperkalemia (principal); I12.0 Hypertensive chronic kidney disease with stage 5 chronic kidney disease or end stage renal disease; N18.6 End stage renal disease; C95.90 Leukemia, unspecified not having achieved remission; Z99.2 Dependence on renal dialysis; Z92.21 Personal history of antineoplastic chemotherapy; D63.1 Anemia in chronic kidney disease; E89.0 Postprocedural hypothyroidism; Z87.891 Personal history of nicotine dependence
CPT/HCPCS: 71045; 80048; 80053; 82550; 82553; 83036; 83735; 84100; 84484; 85025; 85610; 85730; 87340; 90935; 93005; 93970; 94664; 96374; 96375; 99217; 99285-25